=== PATIENT | female | born 1970 | race Caucasian/White ===

== ENCOUNTER 2019-01-30 15:35 | Emergency (ER) | payer BC ==
[~2019-01-30] VITALS: Ht 170.2 cm; Wt 47.0 kg
--- NOTE | 2019-01-30 16:30 | NUR ---
Pt brought straight back to ER Overflow with parents Ede Lara and Patricia [phone] home and cell [phone]. Pt has fibromyalgia that has been untreated for 7 years. One month ago pt stopped eating, drinking, taking medications and became incontinent. Parents attribute this to recent health problems of their own. Pt unable to care for self. Pt states unable to eat because of pain in her throat and her stomach.
--- NOTE | 2019-01-30 16:49 | NUR ---
Pt changed into green scrubs. She was incontinent of urine and stool.
[2019-01-30] MEDS ORDERED: PANT20TA3 PO (16:57)
[2019-01-30] MEDS ORDERED: FLUO20CA39 PO (16:58)
--- NOTE | 2019-01-30 16:58 | NUR ---
Phone call to bread wrapper operator requestin pt be seen by provider and orders be put in. No [phone] at this time
[2019-01-30] MEDS ORDERED: GABA-532 PO (16:59)
[2019-01-30] MEDS ORDERED: OLAN5TAB5 PO (17:01)
[2019-01-30] MEDS ORDERED: ACET-2119 PO (17:02)
[2019-01-30] MEDS ORDERED: MAGN400T28 PO (17:04)
--- NOTE | 2019-01-30 17:12 | NUR ---
PT STATES SHE IS HAVING LEFT SHOULDER PAIN AND IS GOING TO . RN AWARE.
--- NOTE | 2019-01-30 17:23 | NUR ---
Pt given a warm blanket
--- NOTE | 2019-01-30 17:59 | NUR ---
Pt still awaiting assessment by provider. No orders in at this time
--- NOTE | 2019-01-30 18:01 | NUR ---
PT STATES HER DOCTOR JUST TOLD HER HER TEMPERATURE IS 110 DEGREES, REQUESTING TO HAVE HER TEMP TAKEN.
[2019-01-30] MEDS ORDERED: LORazepam 2 mg/ml vial IM ONE (18:35)
[2019-01-30] MEDS ORDERED: diphenhydrAMINE 50 mg/ml inj IM ONE (18:35)
[2019-01-30] MEDS ORDERED: haloperidol lactate 5mg/ml inj IM ONE (18:35)
--- NOTE | 2019-01-30 18:35 | NUR ---
is with patient and her parents. has ordered Ativan 2mg IM, Benadryl 25mg IM.
--- NOTE | 2019-01-30 19:04 | NUR ---
The lab is with patient. She has been medicated and appears to be much more relaxed.
[2019-01-30 19:21] LABS: BASOPHILS % (AUTO) 0.7 % (0-1); EOSINOPHILS # (AUTO) 0.1 X10'3 (0-0.9); EOSINOPHILS % (AUTO) 1.4 % (0-6); HEMATOCRIT 34.1 % (35.0-45.0); LYMPHOCYTES # (AUTO) 0.6 X10'3 (1.1-4.8); LYMPHOCYTES % (AUTO) 13.5 % (21-51); MEAN CORPUSCULAR HEMOGLOBIN 32.4 PG (27.0-31.0); MEAN CORPUSCULAR HGB CONC 35.2 g/dL (33.0-36.5); MEAN CORPUSCULAR VOLUME 91.9 FL (78-98); MEAN PLATELET VOLUME 7.9 FL (7.4-10.4); MONOCYTES # (AUTO) 0.6 X10'3 (0-0.9); MONOCYTES % (AUTO) 13.5 % (2-12); NEUTROPHILS % (AUTO) 70.9 % (42-75); PLATELET COUNT 132 X10'3 (140-440); RED BLOOD COUNT 3.72 X10'6 (4.20-5.60); RED CELL DISTRIBUTION WIDTH 13.4 % (11.5-14.5); WHITE BLOOD COUNT 4.2 X10'3 (4.5-11.0)
[2019-01-30 19:30] LABS: ALANINE AMINOTRANSFERASE 14 U/L (12-78); ALBUMIN 2.7 G/DL (3.4-5.0); ALBUMIN/GLOBULIN RATIO 0.8 (1.1-1.5); ALKALINE PHOSPHATASE 57 IU/L (46-116); ANION GAP 13 (8-16); ASPARTATE AMINO TRANSFERASE 13 U/L (10-37); BILIRUBIN,TOTAL 1.1 MG/DL (0.1-1.0); BLOOD UREA NITROGEN 17 MG/DL (7-18); BUN/CREATININE RATIO 24.6 (6.6-38.0); CALCIUM 8.5 MG/DL (8.5-10.1); CHLORIDE 107 MMOL/L (99-107); CREATININE 0.69 MG/DL (0.40-0.90); ETHANOL < 0.010 GM/DL (0.0-0.010); GLUCOSE 79 MG/DL (70-104); SODIUM 143 MMOL/L (135-145); TOTAL CARBON DIOXIDE 23.4 MMOL/L (24-32); TOTAL PROTEIN 6.2 G/DL (6.4-8.2); eGFR 90 ML/MIN
[2019-01-30] MEDS ORDERED: risperiDONE 0.5mg tablet PO ONE (20:00)
[2019-01-30] MEDS: pregabalin 75mg capsule PO SCH (20:00)
[2019-01-30] MEDS ORDERED: acetaminophen 325mg tablet PO PRN (20:00)
[2019-01-30] MEDS: OLANZapine 5mg rapidly disint. tablet PO SCH (20:00)
[2019-01-30] MEDS: gabapentin 300mg capsule PO SCH (21:00)
--- NOTE | 2019-01-30 21:33 | NUR ---
The patient is asleep in the supine position. Resp. unlabored. No s/s of distress.
[2019-01-31] MEDS ORDERED: potassium Cl 20 mEq SR tablet PO STA (00:55)
--- NOTE | 2019-01-31 01:13 | NUR ---
The patient is sleeping in supine position. Resp unlabored. No s/s of distress.
--- NOTE | 2019-01-31 03:11 | NUR ---
PT SLEEPING, LYING ON HER BACK ON THE BED WITH BLANKETS UP TO WAIST. RR 14 AND UNLABORED. SITTER AND RN WITHIN VIEW OF PT AAT.
--- NOTE | 2019-01-31 04:09 | NUR ---
The patient is asleep on her right side. Resp unlabored. No s/s of distress.
--- NOTE | 2019-01-31 05:40 | NUR ---
No AM vitals as per RN.
--- NOTE | 2019-01-31 06:42 | NUR ---
Patient sleeping supine. No distress observed. Continue to monitor.
[2019-01-31] MEDS: pregabalin 75mg capsule PO SCH ×2 (08:00→19:55)
[2019-01-31] MEDS: OLANZapine 5mg rapidly disint. tablet PO SCH ×2 (08:00→19:55)
[2019-01-31] MEDS ORDERED: potassium bicarbonate/cit acid 25mEq tablet.effervescent PO ONE (08:10)
--- NOTE | 2019-01-31 08:10 | NUR ---
Patient sleeping supine. No distress observed. Continue to monitor.
--- NOTE | 2019-01-31 09:00 | NUR ---
Patient awake and following commands. Patient picking at her food. Continue to monitor.
[2019-01-31] MEDS ORDERED: POTASSIUM BICARB 20meq eff tab 20 MEQ TABLET.EFF PO SCH ×2 (09:05→09:06)
[2019-01-31] MEDS: pantoprazole 40mg Tablet.DR PO SCH (09:39)
[2019-01-31] MEDS: FLUoxetine 20mg capsule PO SCH (09:39)
--- NOTE | 2019-01-31 09:45 | NUR ---
Patient took her meds and hs soiled herself but is sitting and eating. Continue to monitor.
--- NOTE | 2019-01-31 10:22 | NUR ---
Patient ambulatory to BR, steady gait. Patient gave RN a cup of urine in her styrofoam cup. Patient has stool all over her perineum and RN cleaned patient, gave her clean underwear and a gown. RN and tech cleaned patient's bed and placed chucks on her bed. Continue to monitor.
--- NOTE | 2019-01-31 12:10 | NUR ---
Patient sleeping. No distress observed. Continue to monitor.
[2019-01-31] MEDS ORDERED: potassium bicarbonate/cit acid 25mEq tablet.effervescent PO SCH (13:00)
--- NOTE | 2019-01-31 14:05 | NUR ---
RN sat with patient. Patient does not make eye contact and is very, very slow in answering questions. Almost feel like she has some catatonia. Patient c/o Fibromyalgia pain and wouldn't address suicidal ideation or depression. Patient is incontinent of stool and patient would not answer why or when this started. Patient will get up and use the BR. Patient is unable to follow directions for a urine sample. Continue to monitor.
--- NOTE | 2019-01-31 15:50 | NUR ---
Patient reclining in bed sleeping. No distress observed. Continue to monitor.
--- NOTE | 2019-01-31 18:00 | NUR ---
Patient given wipes and hat placed in toilet for patient to urinate. Tech heard the toilet flush. After patient walked out, tech checked the hat and there was no urine in the hat. Continue to monitor.
--- NOTE | 2019-01-31 19:00 | NUR ---
RCD PT AWAKE IN BED,HAD 25% OF HER DINNER.INSTRUCTED TO USE HAT IN THE BATHROOM WHEN SHE URINATE,PT PASSIVELY SAID YES.ASKED IF SHE FEELS LIKE SHE WANTS TO GO RIGHT NOW,PT REPLIED SHE IS OK RIGHT NOW.
--- NOTE | 2019-01-31 19:30 | NUR ---
DR. WALTON ORDERED TO PUT A F/C,EXPLAINED THE PROCEDURE TO PT,PT AGREED WITH THE PLAN.F/C FR 16 INSERTED WITH NO COMPLICATIONS,PT HAWK PROCEDURE.DRAINED 1500 ML DARK LOC COLORED,CLEAR URINE.UA SENT.INFORMED DR. WALTON ABOUT THE HEMORRHOID CREAM WAITING FOR THE ORDER.
[2019-01-31] MEDS: gabapentin 300mg capsule PO SCH (19:55)
--- NOTE | 2019-01-31 20:15 | NUR ---
PT COMFORTABLE IN BED,FEELS BETTER PER PT.
[2019-01-31 20:44] LABS: URINE HCG NEGATIVE (NEG)
[2019-01-31 20:46] LABS: CLARITY,URINE SLIGHTLY CLOUDY (Clear); COLOR,URINE YELLOW (Yellow); GLUCOSE, URINE NEGATIVE (Neg); KETONES,URINE >=80 mg/dl (Neg); LEUKOCYTE ESTERASE ,URINE NEGATIVE (Neg); NITRITES, URINE NEGATIVE (Neg); OCCULT BLOOD,URINE SMALL (Neg); PROTEIN,URINE NEGATIVE (Neg); UROBILINOGEN,URINE 0.2 E.U/dL (0.2-1.0)
[2019-01-31 20:47] LABS: UA COLLECTION TYPE FOLEY CATH
[2019-01-31 20:51] LABS: SQUAMOUS EPITHELIAL CELL,UR MANY /LPF (FEW)
[2019-01-31 20:53] LABS: BACTERIA,URINE FEW /HPF (Neg); URINE AMPHETAMINE SCREEN NEGATIVE (Neg); URINE BARBITUATE SCREEN NEGATIVE (Neg); URINE BENZODIAZEPINES SCREEN NEGATIVE (Neg); URINE CANNABINOID SCREEN NEGATIVE (Neg); URINE COCAINE SCREEN NEGATIVE (Neg); URINE METHADONE SCREEN NEGATIVE (Neg); URINE OPIATE SCREEN NEGATIVE (Neg); URINE PHENCYCLIDINE SCREEN NEGATIVE (Neg)
--- NOTE | 2019-01-31 21:30 | NUR ---
PT CALM AND COMFORTABLE IN BED.
--- NOTE | 2019-01-31 22:45 | NUR ---
PT ASLEEP IN BED,BREATHING EVEN AND UNLABOURED.
--- NOTE | 2019-01-31 23:33 | NUR ---
PT SLEEPING,BREATHING EVEN AND UNLABOURED.
--- NOTE | 2019-02-01 00:41 | NUR ---
PT ASLEEP IN BED,BREATHING EVEN AND UNLABOURED.
--- NOTE | 2019-02-01 03:26 | NUR ---
PT ASLEEP IN SUPINE POSITION.BREATHING EVEN AND UNLABOURED.
--- NOTE | 2019-02-01 05:43 | NUR ---
V/S CHECKED AND WENT BACK TO SLEEP.
--- NOTE | 2019-02-01 06:45 | NUR ---
Patient sleeping supine, no distress observed. Continue to monitor.
[2019-02-01] MEDS ORDERED: hydrocortisone acetate 25mg rectal suppository RC PRN (07:25)
--- NOTE | 2019-02-01 08:15 | NUR ---
RN awoke patient and assisted patient in eating and drinking. Patient has a Louie Catheter. Continue to monitor.
[2019-02-01] MEDS: OLANZapine 5mg rapidly disint. tablet PO SCH ×2 (08:50→20:01)
[2019-02-01] MEDS: pregabalin 75mg capsule PO SCH ×2 (08:50→20:01)
[2019-02-01] MEDS: FLUoxetine 20mg capsule PO SCH (08:50)
[2019-02-01] MEDS: pantoprazole 40mg Tablet.DR PO SCH (08:50)
--- NOTE | 2019-02-01 09:00 | NUR ---
Patient ate most of her cream of wheat and drank some apple juice. Continue to monitor.
--- NOTE | 2019-02-01 11:05 | NUR ---
Patient's parents at bedside. Patient awoke for parents' visit. Continue to monitor.
--- NOTE | 2019-02-01 12:10 | NUR ---
Parents left because ptient fell asleep. No distress observed. Continue to monitor.
[2019-02-01] MEDS: potassium Cl 20 mEq SR tablet PO SCH (13:41)
--- NOTE | 2019-02-01 14:37 | NUR ---
Patient continues to sleep but RN sees patient moving hands and readjusting. Continue to monitor.
--- NOTE | 2019-02-01 15:40 | NUR ---
MARTI Lin and Catherine Edward cleaned patient, changed linen and gave patient a clean green gown.
--- NOTE | 2019-02-01 16:30 | NUR ---
Patient with Deshawn from [facility]. continue to monitor.
--- NOTE | 2019-02-01 17:35 | NUR ---
Patient placed on a 5150 for Grav[facility] Disabled.
--- NOTE | 2019-02-01 20:00 | NUR ---
The patient is resting on her bed. Her affect is flat. She gives very minimal soft monotone responses to questions. She made no attempt to eat her dinner on her own but did eat two bites with prompting before refusing her tray. She reports she has no appetite. She appears internally preoccupied but denies hearing voices. She could not recall how she came to be in the ER. She knew she was in the hospital in [place]. She stated it was January 2019. She admits to feeling depressed and when asked if she was having suicidal thoughts she stated that she has Fibromyalgia. "I've had firbromyalgia for a long time" and stated she did not want to live.
[2019-02-01] MEDS: gabapentin 300mg capsule PO SCH (20:01)
--- NOTE | 2019-02-01 21:56 | NUR ---
The patient appears to be sleeping
--- NOTE | 2019-02-01 22:41 | NUR ---
The patient appears to be sleeping
--- NOTE | 2019-02-02 00:11 | NUR ---
The patient appears to be sleeping
--- NOTE | 2019-02-02 00:55 | NUR ---
assumed care of pt. pt sleeping on back. resp even/unlabored
--- NOTE | 2019-02-02 02:25 | NUR ---
pt continues sleeping. even/unlabored respirations
--- NOTE | 2019-02-02 04:17 | NUR ---
pt sleeping. resp even/unlabored
--- NOTE | 2019-02-02 05:55 | NUR ---
pt had a small smear on dri ravinder. leonor care done and clean dri ravinder on bed. pt VS obtained. pt answers questions very quietly, barely responds
--- NOTE | 2019-02-02 07:22 | NUR ---
PT IS RESTING IN BED PEACEFULLY AT THIS TIME ON HER RIGHT SIDE. NO DISTRESS OBSERVED. WILL CONTINUE TO MONITOR.
[2019-02-02] MEDS: potassium Cl 20 mEq SR tablet PO SCH ×3 (07:52→19:09)
[2019-02-02] MEDS: FLUoxetine 20mg capsule PO SCH (07:53)
[2019-02-02] MEDS: pantoprazole 40mg Tablet.DR PO SCH (07:53)
[2019-02-02] MEDS: OLANZapine 5mg rapidly disint. tablet PO SCH ×2 (07:53→20:45)
[2019-02-02] MEDS: pregabalin 75mg capsule PO SCH ×2 (07:53→20:13)
--- NOTE | 2019-02-02 08:32 | NUR ---
PT TOOK HER MEDICATIONS ONE AT A TIME WITH AIDE OF THIS [employer]ER[employer] GLAZIER. SHE REPORTS THAT SHE JUST WANTS TO GO TO [facility] AND IS IN PAIN. SHE ATE ONLY BITES OF HER MEAL AND HAD SIPS OF WATER WITH HER PILLS. FC IN PLACE WITH PERERA COLORED URINE. FLOWING WELL. NO D/C OR CONCERNS NOTED IN LUIS ALFREDO AREA. PT IS CURRENTLY CLEAN AND DRY.
--- NOTE | 2019-02-02 09:35 | NUR ---
Pt is resting in bed peacefully at this time. No distress observed. Will continue to monitor.
--- NOTE | 2019-02-02 10:28 | NUR ---
Pt is resting in bed peacefully in the supine position at this time. Her F/C is still draining fournier colored urine, no leaking noted. Pt remains clean and dry. No distress observed. Will continue to monitor.
--- NOTE | 2019-02-02 11:12 | NUR ---
Pt is resting in bed peacefully. No distress observed.
--- NOTE | 2019-02-02 12:47 | NUR ---
Pt is laying in bed wth head of bed elevated. arnaud Wood, is at bedside aiding patient with eating her lunch. Pt talks low and slurred in short sentences, but is able to make her needs know.
--- NOTE | 2019-02-02 13:41 | NUR ---
pt resting in bed with eyes closed
--- NOTE | 2019-02-02 14:40 | NUR ---
Pt is resting in bed peacefully at this time. No distress observed.
[2019-02-02] MEDS ORDERED: normal saline 1000ML IV soln IVB ONE (18:25)
[2019-02-02] MEDS ORDERED: potassium Cl 10 mEq/100mL bag IV ONE (18:45)
[2019-02-02] MEDS ORDERED: potassium Cl 20 mEq SR tablet PO ONE (18:45)
--- NOTE | 2019-02-02 18:59 | NUR ---
PT WAS MOVED FROM ER OVERFLOW TO ROOM #1 SECONDARY TO TACHYCARDIA AND LOW URINE OUTPUT. BRIEF PHONE CONSULT WITH MARCY BEFORE TRANSFERRING HIM TO MD VOGEL I WAS NOT FAMILIAR WITH THE PATIENT.
--- NOTE | 2019-02-02 19:15 | NUR ---
PT MOVED FROM BED 1 TO 8 PT COULD NOT BE LINE OF SIGHT
--- NOTE | 2019-02-02 19:23 | NUR ---
Called Parents Per Dr Marin to have them come to the ED to talk about treatment options for the Patient and possibility of sending her home with them. Father agrees to come to the ED to have meeting with MD and will arrive in 45 min to 1 hour. Pt HR improving and Dr Marin to order 1 more liter of lactated ringers. Pt has increasing urine output. Spoke with patient about possibility of going to a voluntary 30day inpatient facility for her anorexia. Pt unable to make decision and states "I dont know". Parents are supportive of her going to a facility for help.
[2019-02-02] MEDS ORDERED: ringers solution, lactated 1000ml IV soln IV ONE (19:25)
--- NOTE | 2019-02-02 19:29 | NUR ---
PT MOVES FROM BED 1, TO BED 8
[2019-02-02] MEDS: gabapentin 300mg capsule PO SCH (20:14)
--- NOTE | 2019-02-02 21:23 | NUR ---
GENERA; NURSING ORDER TIMED FOR 02/03/19 0800. CASE MANAGEMENT TO BE CONTACTED. DR VOGEL REQUESTING FOR PT TO BE ADMITTED TO [facility] FOR INPATIENT CARE FOR ANOREXIA/DEPRESSION.
[2019-02-02 22:01] LABS: ALBUMIN 2.2 G/DL (3.4-5.0); ANION GAP 12 (8-16); BLOOD UREA NITROGEN 14 MG/DL (7-18); BUN/CREATININE RATIO 30.4 (6.6-38.0); CALCIUM 7.4 MG/DL (8.5-10.1); CHLORIDE 108 MMOL/L (99-107); CREATININE 0.46 MG/DL (0.40-0.90); GLUCOSE 55 MG/DL (70-104); POTASSIUM 4.6 MMOL/L (3.5-5.1); SODIUM 141 MMOL/L (135-145); TOTAL CARBON DIOXIDE 21.1 MMOL/L (24-32); eGFR > 90 ML/MIN
--- NOTE | 2019-02-02 22:35 | NUR ---
PT CUEVAS CATHETER DISCONTINUED PER MD ORDERS ,EMPTIED 200 ML OF URINE .PT K+ 4.6,IV D/C ,PT BROUGHT TO OVERFLOW [facility] BED ,REPORT WAS GIVEN TO NURSE BAILEY BY MARTI WOODS BEFORE ,NOW UPDATED WITH CURRENT SITUATION .
--- NOTE | 2019-02-02 23:13 | NUR ---
covering RN for break. visual check of pt done, pt laying calmly with eyes closed on back, respirations observed WNL.
--- NOTE | 2019-02-03 07:28 | NUR ---
Received Pt in bed awake. Pleasant and responded softly and coherently to Q's. Pt not in distress and returned to sleep.
[2019-02-03] MEDS: pantoprazole 40mg Tablet.DR PO SCH (08:47)
[2019-02-03] MEDS: OLANZapine 5mg rapidly disint. tablet PO SCH ×2 (08:48→20:25)
[2019-02-03] MEDS: FLUoxetine 20mg capsule PO SCH (08:48)
[2019-02-03] MEDS: pregabalin 75mg capsule PO SCH ×2 (08:48→20:25)
--- NOTE | 2019-02-03 09:45 | NUR ---
CASE MANAGEMENT AND NEEDLE PUNCH MACHINE OPERATOR AT BEDSIDE. 02/01/19 PT WAS PLACED ON A 5150 BY [facility], THEY ARE TRYING TO PLACE [facility] [place] OR [place]. [facility] IS GOING TO RELEASE THE 5150. NEEDLE PUNCH MACHINE OPERATOR/ CASE MANAGEMENT TO TALK WITH PT'S FAMILY TO HELP WITH RESOURCES.
--- NOTE | 2019-02-03 10:30 | NUR ---
Pt visiting with parents. Walked to bathroom by self w/o assistance. Ate approximately 5-10% of breakfast. Encouraged to eat and drink. Given single use underwear and Tech assisted in putting them on her. Took AM meds slowly, yet took them all. Pt remains in bed, speaks very softly and difficult to hear.
--- NOTE | 2019-02-03 14:00 | NUR ---
tsPt visited with brother and his . Ambulated to bathroom again. Bro and sister in law reported she had learning disabilities growing up but was never diagnosed and was protected by parents. They confirmed that she started to not eat, around the time father had heart attack. Also recently moved back in with parents. She was living in her own apt for about 5 years after divorce from of 20 yrs. Daughter and BF moved in with her and relations were tense and BF killed her dog. Pt appears depressed and anxious with limited coping skills.
--- NOTE | 2019-02-03 17:29 | NUR ---
Pt resting in bed. Encouraging fluids and food. Discussed Pt with Alice BARRY from [facility], who will be coming down to do a consult for possible admission to [facility] later this evening.
--- NOTE | 2019-02-03 18:30 | NUR ---
Pt is sitting up in bed talking with visitors, her brother and sister. Pt has dinner tray in front of her, staff and family are encouraging her to eat. Vitals WNL.
--- NOTE | 2019-02-03 20:00 | NUR ---
Pt is talking with PA from [facility] with brother and sister at bedside.
[2019-02-03] MEDS: gabapentin 300mg capsule PO SCH (20:25)
[2019-02-03] MEDS ORDERED: mirtazapine 15mg tablet PO SCH (21:00)
--- NOTE | 2019-02-03 21:00 | NUR ---
Pt has been accepted to [facility].
[2019-02-03 22:19] VITALS: BP 131/81
== END 2019-02-03 21:20 ==
LOC: ER 15:37
DX: F41.9 Anxiety disorder, unspecified (principal); F29 Unspecified psychosis not due to a substance or known physiological condition; E87.6 Hypokalemia; M79.7 Fibromyalgia; Z90.49 Acquired absence of other specified parts of digestive tract; Z88.6 Allergy status to analgesic agent; Z79.899 Other long term (current) drug therapy
CPT/HCPCS: 36415; 80048; 80053; 80305; 80320; 81001; 81025; 84132; 84443; 85025; 87088; 96365; 96366; 96372; 99285; J1200; J1630; J2060; J7030

== ENCOUNTER 2019-02-03 20:35 | Inpatient (IN) | payer BC ==
[~2019-02-03] VITALS: Ht 167.6 cm; Wt 43.0 kg
[~2019-02-03 20:35] MED LIST: ACET-2119 PO; FLUO20CA39 PO; GABA-532 PO; OLAN5TAB5 PO; PANT20TA3 PO
--- NOTE | 2019-02-03 21:45 | NUR ---
ADMIT NOTE: Pt brought up by Nina Catherine. Ht, Wt, [facility] & Terrence. Skin assessment completed with MARTI Lang followed by pt showering and changing into clean scrubs and nonskid socks. Pt's belongings inventoried, no contraband noted, admit paperwork signed by [facility] Nian. Admit assessment completed at bedside; pt provided with warm blanket and water. Why They are here: Pt lives with her parents. Pt has lost 30lbs with the last 2 months per her family. This is believed to be triggered by her parents recent physical health decline (Mother had a Stent placed and father had a double bypass surgery) and loss of a pet dog, per pt's sister and brother. Pt states she has thoughts of "not wanting to be here" stating "the pain is too much" and per the PA notes, stopped eating in hopes she would . Hx: Possibly delayed/mild learning disabilities, Dyslexia. Social Hx: Pt was for 18 years and has a daughter.Pt will state "I don't know" when uncomfortable and when talking with strangers, per pt brother. Medical Hx: Fibromyalgia, Glasses, Hemorrhoids, L/R Large Toe Ingrown/redness (see photos in chart), General weakness, Unsteady Gait (Pt denies use of assistive devices) Surgical Hx: Cholecystectomy Mental Status Eye contact: Poor to none Behavior: Guarded Speech: Mumbled, Soft Mood: Depressed 10/10, +SI Affect: Flat Cognition: Presents as Mildly impaired, A&Ox2 (unable to give location or events) Insight: Poor Judgment: Poor Pt denies AH/VH/HI. Pt had HS medications in ED Overflow prior to being admitted to H unit.
[2019-02-03 22:30] VITALS: BP 124/88
[2019-02-03] MEDS ORDERED: hydrOXYzine 25 MG tablet PO PRN (22:55)
[2019-02-03] MEDS ORDERED: LORazepam 1 MG tablet PO PRN (22:55)
[2019-02-03] MEDS ORDERED: acetaminophen 325mg tablet PO PRN ×2 (22:55)
[2019-02-03] MEDS: gabapentin 300mg capsule PO SCH (22:58)
[2019-02-03] MEDS: OLANZapine 5mg rapidly disint. tablet PO SCH (22:59)
[2019-02-03] MEDS ORDERED: mag hydrox/Alum hydrox/simeth 30ml oral suspension PO PRN (23:00)
[2019-02-03] MEDS ORDERED: loperamide 2mg capsule PO PRN (23:00)
[2019-02-03] MEDS ORDERED: magnesium hydroxide 30ml (MOM) UD suspension PO PRN (23:00)
[2019-02-04] MEDS ORDERED: acetaminophen 325mg tablet PO SCH
[2019-02-04] MEDS: OLANZapine 5mg rapidly disint. tablet PO SCH ×2 (07:46→20:56)
[2019-02-04] MEDS: FLUoxetine 20mg capsule PO SCH (07:46)
[2019-02-04] MEDS: pantoprazole 40mg Tablet.DR PO SCH (07:46)
[2019-02-04 08:00] VITALS: BP 116/82
[2019-02-04 08:16] LABS: CHOL/HDL RATIO 4.1 (0.00-4.99); CHOLESTEROL 123 MG/DL (0-200); HDL CHOLESTEROL 30 MG/DL (35-60); LDL CHOLESTEROL 85 MG/DL (50-100); TRIGLYCERIDES 88 MG/DL (20-135)
--- NOTE | 2019-02-04 08:49 | NUR ---
Met with Ct to complete Psychosocial Assessment. She was lying down in bed and eventually sat up. She spoke very quietly and stated it was difficult to speak. She answered some questions and then stated she wanted to rest. She was oriented to person and place. She did have difficulty recalling the year, "1999, 2008?". Pass Worker will attempt to gather more information later in the day. IFEANYI Ortega
--- NOTE | 2019-02-04 11:03 | NUR ---
FOOD PREFERENCES ASHA Jenkins, signed a med order to allow Ct outside food. Ct reported she likes the following: jello (not green) applesauce soup-vegetable, minestrone apples w/peanut butter protein shakes-vanilla vanilla ice cream grilled cheese peanutbutter IFEANYI Hodge
[2019-02-04] MEDS ORDERED: protein shake 8oz. (237ml) PO SCH (13:00)
--- NOTE | 2019-02-04 14:29 | NUR ---
FAMILY PHONE NUMBERS [phone] [id number] [phone] Left message with Milla requesting a call back to gather additional information. IFEANYI Ortega Addendum: 02/08/19 at 0915 by Bertha Veliz SS Parents # [phone] Lara
--- NOTE | 2019-02-04 15:37 | NUR ---
Malnutrition consult. Patient is underweight, low BMI of 17, weighing 103 lbs on standing scale. No prior weights for weight history. Patient reports both unsure if she has lost weight and reporting 24-33 lbs weight loss, reports eating poorly due poor appetite. Per ER physician note patient began lacking communication after her father had an ID, she "denied consuming food or liquids" and had c/o painful swallow; patient in catatonic state with flat affect; lost 38 lbs since october 24 all per MD note. In another progress note it is reported that she lost 30 lbs in two months (this would be a 21% loss with a UBW of 133 lbs). A 38 lb loss since 10/24/18 would have a UBW 141 lbs, leaving the patient at 73% of her UBW with loss of 27% of her weight in three months. Both amounts of weight loss meet criteria for severe malnutrition in the context of very poor PO intake and poor appetite/anorexia. The patient reports she is eating at home, likes applesauce, soup, and is "picky," the progress note further reports the patient stated "yes" when asked if she stopped eating in hopes that she would , SI plan was to starve to . Recommend sending ensure enlive with all meals, d/w bedside RN and dietary. Will continue to follow and monitor PO intake and ONS acceptance. Recommend: 1. continue regular diet 2. Ensure Enlive with all meals 3. Encourage PO Intake 4. bowel care as needed 5. weekly weights Addendum: 02/04/19 at [address] Amended: Links added.
--- NOTE | 2019-02-04 17:30 | NUR ---
Nursing Progress Note: Legal hold: 5150 Client on involuntary status for DTS Report received from nurse with use of SBAR: Shirin Young RN Why they are here: Pt lives with her parents. Pt has lost 30lbs with the last 2 months per her family. This is believed to be triggered by her parents recent physical health decline (Mother had a Stent placed and father had a double bypass surgery) and loss of a pet dog, per pt's sister and brother. Pt states she has thoughts of "not wanting to be here" stating "the pain is too much" and per the PA notes, stopped eating in hopes she would . Pt. reportedly has slight developmental delay. What has happened this shift: Pt. asleep at start of shift. Pt. took medications but refused all meals. Pt. refused all meals. 1:1 done at bedside. Pt. reports depression but denies SI/HI, A/V H. Pt. reports she wants to go home. RN received order that pt. can have food brought in from home because pt. is reportedly a picky eater. Pt. observed eating 2 peanut butter crackers by this RN. When RN encouraged pt. to eat more, pt. responded, Im just not hungry. At dinner time pt. refused her tray however, pt. drank of her ensure after much encouragement. S/I, H/I: Denies A/VH: Denies Sleep: Pt. napped on and off during the shift. ADL's: Independent. Group attendance: Yes Were meds taken: Yes Any med S/E: None reported nor noted Mental Status Exam Appearance: wearing green scrubs, clean but oily hair (Pt. reportedly showered last night) Eye contact: Good Behavior: Isolative Speech: Soft Mood: Depressed Affect: congruent with affect. Thought process: Thought blocking Thought Content: Wants to go home. Cognition: A&Ox3 (not to circumstance) Insight: Poor Judgment: Poor Interventions PRN's used: N/A Therapeutic interventions: One on one assessments, give pt. greater meal choices, weigh pt. daily, medication administration, every 15 minute safety checks. Encourage group participation and interaction, encourage going outside and daily shower/ personal care for self. Restraints/seclusion/emergency medication: None Justification of Continued Inpatient Treatment: Pt continues to be refusing food, pt. needs to put on weight, needs crisis interruption, stabilization, and medication adjustment in a safe and therapeutic environment.
[2019-02-04] MEDS: lactose-reduced food (Ensure Enlive) - 237ml bottle PO SCH (18:15)
[2019-02-04 20:00] VITALS: BP 124/84
[2019-02-04] MEDS: gabapentin 300mg capsule PO SCH (20:56)
[2019-02-04] MEDS: mirtazapine 15mg tablet PO SCH (20:56)
[2019-02-04] MEDS: docusate sod 100mg capsule PO SCH (20:56)
--- NOTE | 2019-02-05 02:39 | NUR ---
Nursing Progress Note: Legal hold: 5150 Client on involuntary status for DTS Report received from nurse with use of SBAR: MARTI Salgado Why they are here: Pt lives with her parents. Pt has lost 30lbs with the last 2 months per her family. This is believed to be triggered by her parents recent physical health decline (Mother had a Stent placed and father had a double bypass surgery) and loss of a pet dog, per pt's sister and brother. Pt states she has thoughts of "not wanting to be here" stating "the pain is too much" and per the PA notes, stopped eating in hopes she would . Pt. reportedly has slight developmental delay. What has happened this shift: Pt sitting in chair in room at change of shift. Pt has a cane to walk around. Pt remains mostly non-verbal, taking multiple attempts to elicit an answer. Pt did endorse anxiety (pt declined Ativan) and SI (pt nodded when asked whether she isn't eating so she will no longer live). Pt appears downcast. Pt stopped talking after stating, "I'm tired. Too many questions." She did not drink any of her evening ensure and would not eat any additional snack with encouragement. Pt was compliant with medications, but had to be coached not to chew or bite them in half. Although pt showered on admit, her hair remains very oily. Needs a stronger shampoo than hospital-chosen brand to achieve a deep clean. Pt went to bed immediately after HS med administration. S/I, H/I: Denies HI, Vague SI (Nods when asked whether she isn't eating so she will no longer live) A/VH: Denies Sleep: See Sleep Assessment ADL's: Independent. Group attendance: N/A Were meds taken: Yes Any med S/E: None reported nor noted Mental Status Exam Appearance: wearing green scrubs, clean but oily hair (Pt. reportedly showered last night) Eye contact: Minimal to none Behavior: Isolative Speech: Soft, Mumbled Mood: Depressed, Anxious Affect: Flat Thought process: Thought blocking Thought Content: Wants to go home Cognition: A&Ox3 (not to circumstance) Insight: Poor Judgment: Poor Interventions PRN's used: N/A Therapeutic interventions: One on one assessments, give pt. greater meal choices, weigh pt. daily, medication administration, every 15 minute safety checks. Encourage group participation and interaction, encourage going outside and daily shower/ personal care for self. Restraints/seclusion/emergency medication: None Justification of Continued Inpatient Treatment: Pt continues to be refusing food, pt. needs to put on weight, needs crisis interruption, stabilization, and medication adjustment in a safe and therapeutic environment.
[2019-02-05 07:30] VITALS: BP 118/78
[2019-02-05] MEDS: pantoprazole 40mg Tablet.DR PO SCH (08:37)
[2019-02-05] MEDS: megestrol acetate 400mg/10ml UD oral suspension PO SCH (08:37)
[2019-02-05] MEDS: lactose-reduced food (Ensure Enlive) - 237ml bottle PO SCH ×4 (08:37→18:00)
[2019-02-05] MEDS: FLUoxetine 20mg capsule PO SCH (08:37)
[2019-02-05] MEDS: OLANZapine 5mg rapidly disint. tablet PO SCH ×2 (08:37→22:04)
[2019-02-05] MEDS ORDERED: metoprolol tartrate 12.5mg (1/2 tablet) PO ONE ×2 (09:15)
--- NOTE | 2019-02-05 09:34 | NUR ---
Elevated HR: Pt HR 140bpm at VS time. EKG shows ST at 128bpm. Paged Hospitalists. Dr Batista calls back and gives orders for MEtoprolol 12.5mg once and encourage po fluids.
--- NOTE | 2019-02-05 17:45 | NUR ---
Nursing Progress Note: Legal hold: 5150 Client on involuntary status for DTS Report received from nurse with use of SBAR: Shirin Young RN Why they are here: Pt lives with her parents. Pt has lost 30lbs with the last 2 months per her family. This is believed to be triggered by her parents recent physical health decline (Mother had a Stent placed and father had a double bypass surgery) and loss of a pet dog, per pt's sister and brother. Pt states she has thoughts of "not wanting to be here" stating "the pain is too much" and per the PA notes, stopped eating in hopes she would . Pt. reportedly has slight developmental delay. What has happened this shift: Pt. is asleep at start of shift. Pt.s heart rate was 144 and EKG done and showed Sinus Tachycardia. Hospitalist called and ordered Metoprolol 12.5 mg, after and patients heartrate came down to 110. Pt. took all medications. 1:1 done at bedside. When asked if suicidal pt. states, I dont know what to say to that. Pt. offered minimal answers during interview. Pt. placed on strict Is and Os however, pt. will not use the hat to urinate into, pt. states that she forgets to use it. Pt. reports urinating twice in the AM. Pt. needs persistent encouragement to eat and drink the slightest bit of food. Pt. showered but did not wash her hair. Pt.s intake today: Inusre (4oz) cream of wheat (3oz) 3 bites of palomo 2 bites of eggs 3 bites of macaroni and beef. 250 ml juice 100 ml water Pt.s output: (Pt. forgot to use hat until the evening time) 25 ml S/I, H/I: Pt. states, I dont know what to say to that A/VH: Denies Sleep: Pt. napped x2 on day shift. ADL's: Independent. Group attendance: N/A Were meds taken: Yes Any med S/E: None reported nor noted Mental Status Exam Appearance: wearing green scrubs, Pt. showered today but did not wash her hair. Eye contact: Minimal to none Behavior: Isolative Speech: Soft, Mumbled Mood: Depressed, Anxious Affect: congruent with mood Thought process: Thought blocking Thought Content: Wants to go home Cognition: A&Ox3 (not to circumstance) Insight: Poor Judgment: Poor Interventions PRN's used: N/A Therapeutic interventions: One on one assessments, give pt. greater meal choices, weigh pt. daily, medication administration, every 15 minute safety checks. Encourage group participation and interaction, encourage going outside and daily shower/ personal care for self. Restraints/seclusion/emergency medication: None Justification of Continued Inpatient Treatment: Pt continues to be refusing food, pt. needs to put on weight, needs crisis interruption, stabilization, and medication adjustment in a safe and therapeutic environment.
[2019-02-05 20:00] VITALS: BP 107/75
[2019-02-05] MEDS: gabapentin 300mg capsule PO SCH (22:04)
[2019-02-05] MEDS: docusate sod 100mg capsule PO SCH (22:04)
[2019-02-05] MEDS: mirtazapine 15mg tablet PO SCH (22:04)
--- NOTE | 2019-02-06 01:57 | NUR ---
Nursing Progress Note: Legal hold: 5150 Client on involuntary status for DTS Report received from nurse with use of SBAR: Shirin Young RN Why they are here: Pt lives with her parents. Pt has lost 30lbs with the last 2 months per her family. This is believed to be triggered by her parents recent physical health decline (Mother had a Stent placed and father had a double bypass surgery) and loss of a pet dog, per pt's sister and brother. Pt states she has thoughts of "not wanting to be here" stating "the pain is too much" and per the PA notes, stopped eating in hopes she would . Pt. reportedly has slight developmental delay. What has happened this shift: Pt. in room at start of shift. Pt tachy on day shift Heart rate this shift was 88. Pt came out of room to visit with Mom and Dad in group room. Went back to room immediately after visiting hour. Pt declined to stay in group room for snack. Pt had a juice and a banana in room. Pt resistant to multiple attempts to get pt to drink or eat. Pt resisted drank only a 1/2 of a juice box. Took all medications. Pt. offered minimal answers to questions. Volume of voice very low difficult to hear. Pt. placed on strict Is and Os however, pt. will not use the hat to urinate into, pt. states that she forgets to use it. Pt. reports urinating twice in the AM. Pt. needs persistent encouragement to eat and drink the slightest bit of food. Pt. showered but did not wash her hair. Pt.s intake today: Inusre (4oz) cream of wheat (3oz) 3 bites of palomo 2 bites of eggs 3 bites of macaroni and beef. 250 ml juice 100 ml water Pt.s output: (Pt. forgot to use hat until the evening time) 25 ml S/I, H/I: Pt. states, I dont know what to say to that A/VH: Denies Sleep: Asleep at this time. ADL's: Independent. Group attendance: N/A Were meds taken: Yes Any med S/E: None reported nor noted Mental Status Exam Appearance: wearing green scrubs, Pt. showered today but did not wash her hair. Eye contact: Minimal to none Behavior: Isolative Speech: Soft, Mumbled Mood: Depressed, Anxious Affect: congruent with mood Thought process: Thought blocking Thought Content: Wants to go home Cognition: A&Ox3 (not to circumstance) Insight: Poor Judgment: Poor Interventions PRN's used: N/A Therapeutic interventions: One on one assessments, give pt. greater meal choices, weigh pt. daily, medication administration, every 15 minute safety checks. Encourage group participation and interaction, encourage going outside and daily shower/ personal care for self. Restraints/seclusion/emergency medication: None Justification of Continued Inpatient Treatment: Pt continues to be refusing food, pt. needs to put on weight, needs crisis interruption, stabilization, and medication adjustment in a safe and therapeutic environment.
[2019-02-06] MEDS: megestrol acetate 400mg/10ml UD oral suspension PO SCH (07:58)
[2019-02-06] MEDS: OLANZapine 5mg rapidly disint. tablet PO SCH ×2 (07:58→21:04)
[2019-02-06] MEDS: pantoprazole 40mg Tablet.DR PO SCH (07:58)
[2019-02-06 08:00] VITALS: BP 107/67
[2019-02-06] MEDS: FLUoxetine 20mg capsule PO SCH (08:01)
[2019-02-06] MEDS: lactose-reduced food (Ensure Enlive) - 237ml bottle PO SCH ×3 (08:56→18:42)
--- NOTE | 2019-02-06 08:56 | NUR ---
Patient only drank approximately 0.25ml of Ensure. Addendum: 02/06/19 at 0858 by Stacy Javed RN Patient only drank approximately 0.25 bottle of Ensure.
[2019-02-06 09:37] LABS: ALANINE AMINOTRANSFERASE 16 U/L (12-78); ALBUMIN/GLOBULIN RATIO 0.9 (1.1-1.5); ALKALINE PHOSPHATASE 62 IU/L (46-116); ANION GAP 11 (8-16); ASPARTATE AMINO TRANSFERASE 17 U/L (10-37); BILIRUBIN,TOTAL 0.9 MG/DL (0.1-1.0); BLOOD UREA NITROGEN 20 MG/DL (7-18); BUN/CREATININE RATIO 36.4 (6.6-38.0); CALCIUM 8.7 MG/DL (8.5-10.1); CHLORIDE 106 MMOL/L (99-107); CREATININE 0.55 MG/DL (0.40-0.90); GLUCOSE 98 MG/DL (70-104); SODIUM 144 MMOL/L (135-145); TOTAL CARBON DIOXIDE 26.6 MMOL/L (24-32); TOTAL PROTEIN 6.5 G/DL (6.4-8.2); eGFR > 90 ML/MIN
[2019-02-06 09:39] LABS: POTASSIUM 2.8 MMOL/L (3.5-5.1)
[2019-02-06] MEDS ORDERED: potassium Cl 20 mEq SR tablet PO PRN (09:40)
--- NOTE | 2019-02-06 09:47 | NUR ---
Critical lab: Lab called. Pts K+ is 2.8. ASHA Jenkins is aware. Pt placed on electrolyte replacement protocol.
[2019-02-06 10:12] LABS: BASOPHILS # (AUTO) 0.1 X10'3 (0-0.2); BASOPHILS % (AUTO) 1.3 % (0-1); EOSINOPHILS # (AUTO) 0.1 X10'3 (0-0.9); EOSINOPHILS % (AUTO) 1.2 % (0-6); HEMATOCRIT 34.7 % (35.0-45.0); HEMOGLOBIN 12.4 g/dl (12.0-16.0); LYMPHOCYTES # (AUTO) 1.1 X10'3 (1.1-4.8); LYMPHOCYTES % (AUTO) 21.6 % (21-51); MEAN CORPUSCULAR HEMOGLOBIN 32.1 PG (27.0-31.0); MEAN CORPUSCULAR HGB CONC 35.7 g/dL (33.0-36.5); MEAN CORPUSCULAR VOLUME 89.8 FL (78-98); MEAN PLATELET VOLUME 7.2 FL (7.4-10.4); MONOCYTES # (AUTO) 0.4 X10'3 (0-0.9); MONOCYTES % (AUTO) 6.6 % (2-12); NEUTROPHILS # (AUTO) 3.7 X10'3 (1.8-7.7); NEUTROPHILS % (AUTO) 69.3 % (42-75); PLATELET COUNT 286 X10'3 (140-440); RED BLOOD COUNT 3.86 X10'6 (4.20-5.60); RED CELL DISTRIBUTION WIDTH 13.3 % (11.5-14.5); WHITE BLOOD COUNT 5.3 X10'3 (4.5-11.0)
[2019-02-06 10:15] LABS: ACANTHOCYTES FEW; PLATELET ESTIMATE NORMAL; POLYCHROMASIA FEW; SPHEROCYTES 1+
[2019-02-06] MEDS: potassium Cl 20 mEq SR tablet PO PRN ×2 (11:25→15:27)
[2019-02-06] MEDS ORDERED: dextrose 5%-normal saline 1,000 ML IV ONE ×2 (15:05→15:10)
--- NOTE | 2019-02-06 16:45 | NUR ---
Nursing Progress Note: Blanca Legal hold: 5150 Client on involuntary status for DTS Report received from nurse with use of SBAR: Shirin Yuong RN Why they are here: Pt lives with her parents. Pt has lost 30lbs with the last 2 months per her family. This is believed to be triggered by her parents recent physical health decline (Mother had a Stent placed and father had a double bypass surgery) and loss of a pet dog, per pt's sister and brother. Pt states she has thoughts of "not wanting to be here" stating "the pain is too much" and per the PA notes, stopped eating in hopes she would . Pt. reportedly has slight developmental delay. What has happened this shift: Pt is resting in bed at change of shift. She speaks lowly and her speech is mumbled. She is unkempt and at first declines to take her medications. With some prompting, she takes her medications one pill at a time. She is up for meals in the community room with minimal intake. She had labs drawn this morning showing a Potassium of 2.8. Started K+ protocol and Pt has received two replacements of potassium 40 meq. She has a PIV in RFA patent and flushing. She received 100ml of D5 in NS. Pt.s intake today: 0.25 Insure (2oz) 2 bites of waffle 1 bites of eggs 250 ml juice 150 ml water Pt.s output: (Pt. forgot to use hat until the evening time) 25 ml S/I, H/I: Denies but states "I don't know what to do with myself" A/VH: Denies Sleep: naps majority of day in between meals ADL's: Independent. Group attendance: N/A Were meds taken: Yes Any med S/E: None reported nor noted Mental Status Exam Appearance: wearing green scrubs, Pt. showered today but did not wash her hair. Eye contact: Minimal to none Behavior: Isolative Speech: Soft, Mumbled Mood: Depressed, Anxious Affect: congruent with mood Thought process: Thought blocking Thought Content: Wants to go home Cognition: A&Ox3 (not to circumstance) Insight: Poor Judgment: Poor Interventions PRN's used: N/A Therapeutic interventions: One on one assessments, give pt. greater meal choices, weigh pt. daily, medication administration, every 15 minute safety checks. Encourage group participation and interaction, encourage going outside and daily shower/ personal care for self. Restraints/seclusion/emergency medication: None Justification of Continued Inpatient Treatment: Pt continues to be refusing food, pt. needs to put on weight, needs crisis interruption, stabilization, and medication adjustment in a safe and therapeutic environment.
[2019-02-06 19:57] VITALS: BP 120/77
[2019-02-06] MEDS: gabapentin 300mg capsule PO SCH (21:03)
[2019-02-06] MEDS: mirtazapine 15mg tablet PO SCH (21:03)
[2019-02-06] MEDS: docusate sod 100mg capsule PO SCH (21:04)
--- NOTE | 2019-02-07 00:33 | NUR ---
Nursing Progress Note: Legal hold: 5150 Client on involuntary status for DTS Report received from nurse with use of SBAR: MARTI Salgado Why they are here: Pt lives with her parents. Pt has lost 30lbs with the last 2 months per her family. This is believed to be triggered by her parents recent physical health decline (Mother had a Stent placed and father had a double bypass surgery) and loss of a pet dog, per pt's sister and brother. Pt states she has thoughts of "not wanting to be here" stating "the pain is too much" and per the PA notes, stopped eating in hopes she would . Pt. reportedly has slight developmental delay. What has happened this shift: Pt sitting on side of bed at start of shift. Minimal answers to question. She speaks quietly and her speech is mumbled. She is unkempt but declines to take a shower. She brightened when family came for a visit ambulated to group room using walker. Third dose of K+ given lab recheck of K+ = 4.0. Took medications. Staff encouraged pt's PO intake. so far this shift intake 850cc. Only 25cc output but there is some question as to wether pt is using hat to record output. S/I, H/I: Denies A/VH: Denies Sleep: not sleeping sitting on side of bed but reported pt slept a lot during dayshift. ADL's: Independent. Group attendance: N/A Were meds taken: Yes Any med S/E: None reported nor noted Mental Status Exam Appearance: wearing green scrubs, Pt. showered today but did not wash her hair. Eye contact: Minimal to none Behavior: Isolative Speech: Soft, Mumbled Mood: Depressed, Anxious Affect: congruent with mood Thought process: Thought blocking Thought Content: Wants to go home Cognition: A&Ox3 (not to circumstance) Insight: Poor Judgment: Poor Interventions PRN's used: N/A Therapeutic interventions: One on one assessments, give pt. greater meal choices, encourage PO intake, Pt has IV access for hydration, weigh pt. daily, medication administration, every 15 minute safety checks. Encourage group participation and interaction, encourage going outside and daily shower/ personal care for self. Restraints/seclusion/emergency medication: None Justification of Continued Inpatient Treatment: Pt continues to be refusing food, pt. needs to put on weight, needs crisis interruption, stabilization, and medication adjustment in a safe and therapeutic environment.
--- NOTE | 2019-02-07 02:00 | NUR ---
pt straight cathed for 2400 cc PA informed ua sent.
[2019-02-07 02:58] LABS: CLARITY,URINE CLOUDY (Clear); COLOR,URINE YELLOW (Yellow); GLUCOSE, URINE 100 mg/dl (Neg); KETONES,URINE TRACE mg/dl (Neg); LEUKOCYTE ESTERASE ,URINE NEGATIVE (Neg); NITRITES, URINE NEGATIVE (Neg); OCCULT BLOOD,URINE SMALL (Neg); PH,URINE 8.5 (4.8-8.0); PROTEIN,URINE NEGATIVE (Neg)
[2019-02-07 03:07] LABS: UA COLLECTION TYPE STRAIGHT CATH
[2019-02-07 03:08] LABS: AMORPHOUS PHOSPHATES 4+; BACTERIA,URINE FEW /HPF (Neg); SQUAMOUS EPITHELIAL CELL,UR FEW /LPF (FEW); WBC,URINE NONE SEEN /HPF (0-4)
[2019-02-07] MEDS: megestrol acetate 400mg/10ml UD oral suspension PO SCH (08:00)
[2019-02-07] MEDS ORDERED: dextrose 5%-normal saline 1,000 ML IV ONE ×2 (08:00→15:30)
[2019-02-07] MEDS: pantoprazole 40mg Tablet.DR PO SCH (08:00)
[2019-02-07] MEDS: lactose-reduced food (Ensure Enlive) - 237ml bottle PO SCH ×3 (08:00→18:00)
[2019-02-07] MEDS: FLUoxetine 20mg capsule PO SCH (08:00)
[2019-02-07] MEDS: OLANZapine 5mg rapidly disint. tablet PO SCH (08:00)
--- NOTE | 2019-02-07 10:03 | NUR ---
reassessment: Pt wt remains low -2.5kg past 24 hours w/ -4L fluid balance. Pt noted to have severe bladder distention w/ high urine output past 24 hours. Pt is AOx2 w/ severe psychosis per MD note. PO 0-25% avg meals slightly up from refusal of all prior meals w/ 25% avg ensure enlive intake receiving megace. RD d/w RN regarding additional bowel care given LBM 02/02 and pt receiving routine colace; likely impacting PO in addition to current SI via starvation. Will continue to monitor. Malnutrition consult. Patient is underweight, low BMI of 17, weighing 103 lbs on standing scale. No prior weights for weight history. Patient reports both unsure if she has lost weight and reporting 24-33 lbs weight loss, reports eating poorly due poor appetite. Per ER physician note patient began lacking communication after her father had an AR, she "denied consuming food or liquids" and had c/o painful swallow; patient in catatonic state with flat affect; lost 38 lbs since october 24 all per MD note. In another progress note it is reported that she lost 30 lbs in two months (this would be a 21% loss with a UBW of 133 lbs). A 38 lb loss since 10/24/18 would have a UBW 141 lbs, leaving the patient at 73% of her UBW with loss of 27% of her weight in three months. Both amounts of weight loss meet criteria for severe malnutrition in the context of very poor PO intake and poor appetite/anorexia. The patient reports she is eating at home, likes applesauce, soup, and is "picky," the progress note further reports the patient stated "yes" when asked if she stopped eating in hopes that she would , SI plan was to starve to . Recommend sending ensure enlive with all meals, d/w bedside RN and dietary. Will continue to follow and monitor PO intake and ONS acceptance. Recommend: 1. continue regular diet; megace per MD 2. Ensure Enlive with all meals 3. Encourage PO Intake 4. bowel care as needed 5. weekly weights Addendum: 02/07/19 at [address] Amended: Links added.
--- NOTE | 2019-02-07 18:10 | NUR ---
Nursing Progress Note: Blanca Legal hold: 5150 Client on involuntary status for DTS Report received from nurse with use of SBAR: MARTI Tsang Why they are here: Pt lives with her parents. Pt has lost 30lbs with the last 2 months per her family. This is believed to be triggered by her parents recent physical health decline (Mother had a Stent placed and father had a double bypass surgery) and loss of a pet dog, per pt's sister and brother. Pt states she has thoughts of "not wanting to be here" stating "the pain is too much" and per the PA notes, stopped eating in hopes she would . Pt. reportedly has slight developmental delay. What has happened this shift: Pt is resting in bed at change of shift. Pt declined all medications and was resistive to care. She allowed straight cath x2 with 400ml of urine in the AM and 300ml at 1400. Dr. Dean provided verbal order for FC which was placed. Pt was combative and resistive to this initially and then complied. She has a PIV in RFA patent and flushing. She received 1000ml of D5 in NS. She states "I am sick, I can't eat, I can't drink", and "I don't know what I am supposed to do". Does not make statements of wanting to and denies SI. Denies A/VH Pt.s intake today: 7 bites of oatmeal with milk and sugar. 6 sips of ensure 2 sips of juice. 1 sip of lunch ensure 1/2 pecan Jello 2 bites of bread pudding sips of water S/I, H/I: Denies but states "I don't know what I am supposed to do" A/VH: Denies Sleep: seen sitting up at edge of bed majority of day ADL's: ambulates self, needs assistance and prompting with ADLs Group attendance: no Were meds taken: no Any med S/E: None reported nor noted Mental Status Exam Appearance: wearing green scrubs, disheveled, hair greasy and unkept Eye contact: Minimal to none Behavior: Isolative Speech: Soft, Mumbled, repetitive Mood: Depressed, Anxious, withdrawn Affect: congruent with mood Thought process: Thought blocking Thought Content: " I don't know what I am supposed to do", "I am old, I can't eat, I can't drink". Cognition: A&Ox3 Insight: Poor Judgment: Poor Interventions: PRN's used: N/A Therapeutic interventions: One on one assessments, give pt. greater meal choices, weigh pt. daily, medication administration, every 15 minute safety checks. Encourage group participation and interaction, encourage going outside and daily shower/ personal care for self. Restraints/seclusion/emergency medication: None Justification of Continued Inpatient Treatment: Pt continues to be refusing food, pt. needs to put on weight, needs crisis interruption, stabilization, and medication adjustment in a safe and therapeutic environment.
[2019-02-07 20:00] VITALS: BP 130/89
[2019-02-07] MEDS: gabapentin 300mg capsule PO SCH (21:00)
[2019-02-07] MEDS: mirtazapine 15mg tablet PO SCH (21:00)
[2019-02-07] MEDS: OLANZapine 2.5MG tablet PO SCH (21:00)
[2019-02-07] MEDS: docusate sod 100mg capsule PO SCH (21:00)
[2019-02-07 21:07] VITALS: BP 130/89
--- NOTE | 2019-02-07 21:48 | NUR ---
Nursing Progress Note: Blanca Legal hold: 5150 Client on involuntary status for DTS Report received from nurse with use of SBAR: MARTI Salgado Why they are here: Pt lives with her parents. Pt has lost 30lbs with the last 2 months per her family. This is believed to be triggered by her parents recent physical health decline (Mother had a Stent placed and father had a double bypass surgery) and loss of a pet dog, per pt's sister and brother. Pt states she has thoughts of "not wanting to be here" stating "the pain is too much" and per the PA notes, stopped eating in hopes she would . Pt. reportedly has slight developmental delay. What has happened this shift: Pt is resting in bed at change of shift. Pt declined all medications and was resistive to care. She has a PIV in RFA patent and flushing. She received 1000ml of D5 in NS. She states "I am sick, I can't eat, I can't drink", and "I don't know what I am supposed to do". Does not make statements of wanting to and denies SI. Denies A/VH. Pt's benavides bag emptied 900 ml output @ 1855 Pt.s intake today: 7 bites of oatmeal with milk and sugar. 6 sips of ensure 2 sips of juice. 1 sip of lunch ensure 1/2 pecan Jello 2 bites of bread pudding sips of water S/I, H/I: Denies but states "I don't know what I am supposed to do" A/VH: Denies Sleep: seen sitting up at edge of bed majority of day ADL's: ambulates self, needs assistance and prompting with ADLs Group attendance: no Were meds taken: no Any med S/E: None reported nor noted Mental Status Exam Appearance: wearing green scrubs, disheveled, hair greasy and unkept Eye contact: Minimal to none Behavior: Isolative Speech: Soft, Mumbled, repetitive Mood: Depressed, Anxious, withdrawn Affect: congruent with mood Thought process: Thought blocking Thought Content: " I don't know what I am supposed to do", "I am old, I can't eat, I can't drink". Cognition: A&Ox3 Insight: Poor Judgment: Poor Interventions: PRN's used: N/A Therapeutic interventions: One on one assessments, give pt. greater meal choices, weigh pt. daily, medication administration, every 15 minute safety checks. Encourage group participation and interaction, encourage going outside and daily shower/ personal care for self. Restraints/seclusion/emergency medication: None Justification of Continued Inpatient Treatment: Pt continues to be refusing food, pt. needs to put on weight, needs crisis interruption, stabilization, and medication adjustment in a safe and therapeutic environment.
[2019-02-08] MEDS ORDERED: dextrose 5%-normal saline 1,000 ML IV ONE ×2 (07:40→15:30)
--- NOTE | 2019-02-08 07:58 | NUR ---
Critical HR: PTs HR 167 palpated. Pt dehydrated. Called Dr Camacho and recieved orders for D5NS bolus 1000cc and at 70cc/hr
[2019-02-08 08:00] VITALS: BP 146/84
[2019-02-08] MEDS: megestrol acetate 400mg/10ml UD oral suspension PO SCH ×2 (08:00→08:09)
[2019-02-08] MEDS: pantoprazole 40mg Tablet.DR PO SCH (08:08)
[2019-02-08] MEDS: OLANZapine 2.5MG tablet PO SCH (08:09)
[2019-02-08] MEDS: FLUoxetine 20mg capsule PO SCH (08:09)
[2019-02-08] MEDS: lactose-reduced food (Ensure Enlive) - 237ml bottle PO SCH ×2 (08:35→13:03)
[2019-02-08 10:00] LABS: CLARITY,URINE SLIGHTLY CLOUDY (Clear); COLOR,URINE STRAW (Yellow); GLUCOSE, URINE >=1000 mg/dl (Neg); KETONES,URINE NEGATIVE (Neg); LEUKOCYTE ESTERASE ,URINE MODERATE (Neg); NITRITES, URINE NEGATIVE (Neg); OCCULT BLOOD,URINE LARGE (Neg); PH,URINE 7.5 (4.8-8.0); PROTEIN,URINE NEGATIVE (Neg); UROBILINOGEN,URINE 0.2 E.U/dL (0.2-1.0)
--- NOTE | 2019-02-08 10:00 | NUR ---
Hospitalist informed of abnormal UA. Awaiting further instruction
[2019-02-08 10:08] LABS: UA COLLECTION TYPE FOLEY CATH
[2019-02-08 10:09] LABS: WBC,URINE TNTC /HPF (0-4)
[2019-02-08 10:10] LABS: BACTERIA,URINE 1+ /HPF (Neg); MUCUS STRANDS NONE SEEN /LPF (Neg); SQUAMOUS EPITHELIAL CELL,UR FEW /LPF (FEW)
--- NOTE | 2019-02-08 11:19 | NUR ---
Spoke with Dr Ivy urology about pts urine retention. states to leave benavides in at least a few days and she plans to come by and evaluate pt in next couple days.
[2019-02-08] MEDS ORDERED: LYR75C PO (15:05)
--- NOTE | 2019-02-08 17:00 | NUR ---
RN gave report to MARTI Hannah in surgical. Pt. to be transferred via wheel chair.
[2019-02-08] MEDS ORDERED: LACT-237 PO (18:28)
[2019-02-08] MEDS ORDERED: OLAN2.5T28 PO (18:28)
[2019-02-08] MEDS ORDERED: BUPR150T8 PO (18:28)
[2019-02-08] MEDS ORDERED: MEGE40TA27 PO (18:28)
[2019-02-08] MEDS ORDERED: MIRT15TA PO (18:28)
[2019-02-08] MEDS ORDERED: buPROPion SR 150mg tablet PO SCH (20:00)
[2019-02-08] MEDS ORDERED: pregabalin 75mg capsule PO SCH (20:00)
== END 2019-02-08 16:42 | disposition home or self-care (01) | DRG 885 ==
LOC: ADULT MH 22:10
PROVIDERS: ADMIT Psychiatry & Neurology Psychiatry; ATTEND Psychiatry & Neurology Psychiatry
DX: F33.3 Major depressive disorder, recurrent, severe with psychotic symptoms (principal); E46 Unspecified protein-calorie malnutrition; Z68.1 Body mass index [BMI] 19.9 or less, adult; E86.0 Dehydration; M79.7 Fibromyalgia; R33.9 Retention of urine, unspecified; R48.0 Dyslexia and alexia; R62.7 Adult failure to thrive; R00.0 Tachycardia, unspecified; Z79.899 Other long term (current) drug therapy
CPT/HCPCS: 36415; 70551; 80053; 80061; 81001; 83036; 84132; 85025; 87077; 87081; 87088; 87186; J7042

== ENCOUNTER 2019-02-08 15:53 | Inpatient (IN) | payer BC ==
[~2019-02-08] VITALS: Ht 170.2 cm; Wt 45.2 kg
[~2019-02-08 15:53] MED LIST changes: +LYR75C PO
[2019-02-08] MEDS ORDERED: metoclopramide 5 mg/ml inj IV PRN (16:35)
[2019-02-08] MEDS ORDERED: magnesium 2GM in 50ml NS 50 ML IV PRN (16:35)
[2019-02-08] MEDS ORDERED: magnesium 4gm in 100ml NS 100 ML IV PRN (16:35)
[2019-02-08] MEDS ORDERED: mag hydrox/Alum hydrox/simeth 30ml oral suspension PO PRN (16:35)
[2019-02-08] MEDS ORDERED: potassium CL 10mEq/100ml bag 100 ML IV PRN (16:35)
[2019-02-08] MEDS ORDERED: potassium Cl 20 mEq SR tablet PO PRN (16:35)
[2019-02-08] MEDS ORDERED: acetaminophen 325mg tablet PO PRN (16:35)
[2019-02-08] MEDS ORDERED: ondansetron/PF 4mg/2ml inj IV PRN (16:35)
[2019-02-08] MEDS ORDERED: acetaminophen 650mg rectal suppository RC PRN (16:35)
[2019-02-08] MEDS ORDERED: bisacodyl 10mg suppository rectal RC PRN (16:35)
[2019-02-08] MEDS ORDERED: magnesium Cl slow-release 64mg tablet PO PRN (16:35)
[2019-02-08] MEDS: dextrose 5%-1/2 normal saline 1,000 ML IV SCH (17:41)
--- NOTE | 2019-02-08 17:45 | NUR ---
Received patient report via phone from Osmar KIDD all questions answered. Will assume patient care when patient comes to the floor.
[2019-02-08 17:50] VITALS: BP 134/94
--- NOTE | 2019-02-08 17:55 | NUR ---
Patient arrived to the floor via wheelchair. patients IV fluids running and benavides intact. Patient was transfered to the bed one person assist with her cane. Patient skin assessment complete and bed alarm call light in place and patient oriented to room and call light
[2019-02-08] MEDS ORDERED: OLAN2.5T28 PO (18:28)
[2019-02-08] MEDS ORDERED: LACT-237 PO (18:28)
[2019-02-08] MEDS ORDERED: MIRT15TA PO (18:28)
[2019-02-08] MEDS ORDERED: BUPR150T8 PO (18:28)
[2019-02-08] MEDS ORDERED: MEGE40TA27 PO (18:28)
[2019-02-08 18:32] LABS: BASOPHILS % (AUTO) 0.3 % (0-1); EOSINOPHILS % (AUTO) 0.2 % (0-6); HEMOGLOBIN 12.2 g/dl (12.0-16.0); LYMPHOCYTES # (AUTO) 0.9 X10'3 (1.1-4.8); MEAN CORPUSCULAR HEMOGLOBIN 32.2 PG (27.0-31.0); MEAN CORPUSCULAR VOLUME 91.9 FL (78-98); MEAN PLATELET VOLUME 6.9 FL (7.4-10.4); MONOCYTES # (AUTO) 0.6 X10'3 (0-0.9); MONOCYTES % (AUTO) 7.9 % (2-12); NEUTROPHILS # (AUTO) 5.9 X10'3 (1.8-7.7); NEUTROPHILS % (AUTO) 79.6 % (42-75); PLATELET COUNT 297 X10'3 (140-440); RED CELL DISTRIBUTION WIDTH 13.5 % (11.5-14.5); WHITE BLOOD COUNT 7.5 X10'3 (4.5-11.0)
[2019-02-08 18:40] LABS: ALANINE AMINOTRANSFERASE 14 U/L (12-78); ALBUMIN 2.8 G/DL (3.4-5.0); ALBUMIN/GLOBULIN RATIO 0.8 (1.1-1.5); ALKALINE PHOSPHATASE 64 IU/L (46-116); ANION GAP 11 (8-16); ASPARTATE AMINO TRANSFERASE 14 U/L (10-37); BILIRUBIN,TOTAL 0.6 MG/DL (0.1-1.0); BLOOD UREA NITROGEN 6 MG/DL (7-18); BUN/CREATININE RATIO 10.3 (6.6-38.0); CALCIUM 8.3 MG/DL (8.5-10.1); CHLORIDE 109 MMOL/L (99-107); CREATININE 0.58 MG/DL (0.40-0.90); GLUCOSE 102 MG/DL (70-104); POTASSIUM 3.1 MMOL/L (3.5-5.1); SODIUM 144 MMOL/L (135-145); TOTAL CARBON DIOXIDE 24.3 MMOL/L (24-32); TOTAL PROTEIN 6.3 G/DL (6.4-8.2); eGFR > 90 ML/MIN
[2019-02-08 20:00] VITALS: BP 134/94
[2019-02-08] MEDS ORDERED: pregabalin 75mg capsule PO SCH (20:00)
[2019-02-08] MEDS ORDERED: OLANZapine 2.5MG tablet PO SCH (20:00)
[2019-02-08] MEDS: dronabinol 2.5mg capsule PO SCH ×2 (20:00→21:07)
[2019-02-08] MEDS: docusate sod 100mg capsule PO SCH ×2 (20:00→21:07)
[2019-02-08] MEDS: potassium CL 10mEq/100ml bag 100 ML IV PRN (22:37)
--- NOTE | 2019-02-08 22:54 | NUR ---
Patient refusing all oral medications. Returned marinol to pharmacy; signed with Sara.
[2019-02-09] VITALS: BP 140/94
[2019-02-09] MEDS: diatr meglu/diatrizoate 30ml oral sol.-(3 dose) bottle PO SCH ×4 (00:15→09:00)
[2019-02-09] MEDS: potassium CL 10mEq/100ml bag 100 ML IV PRN ×6 (00:54→18:07)
[2019-02-09 04:45] VITALS: BP 149/93
--- NOTE | 2019-02-09 05:18 | NUR ---
HR @ 133 bpm @ 0445. Upon entering room patients IV was beeping and patient appeared to be agitated. VS 149/93, HR 133, 98% on RA, RR 14. Recheck on HR was 103 bpm.
[2019-02-09 05:46] LABS: ALBUMIN 3.1 G/DL (3.4-5.0); ANION GAP 12 (8-16); BLOOD UREA NITROGEN 4 MG/DL (7-18); CALCIUM 9.4 MG/DL (8.5-10.1); CHLORIDE 108 MMOL/L (99-107); GLUCOSE 108 MG/DL (70-104); MAGNESIUM 1.8 MG/DL (1.5-2.4); POTASSIUM 3.4 MMOL/L (3.5-5.1); SODIUM 144 MMOL/L (135-145); TOTAL CARBON DIOXIDE 24.1 MMOL/L (24-32); eGFR > 90 ML/MIN
[2019-02-09 05:48] LABS: HEMATOCRIT 39.5 % (35.0-45.0); HEMOGLOBIN 13.8 g/dl (12.0-16.0); MEAN CORPUSCULAR HGB CONC 34.9 g/dL (33.0-36.5); MEAN CORPUSCULAR VOLUME 91.8 FL (78-98); MEAN PLATELET VOLUME 7.1 FL (7.4-10.4); PLATELET COUNT 299 X10'3 (140-440); RED CELL DISTRIBUTION WIDTH 13.4 % (11.5-14.5); WHITE BLOOD COUNT 6.9 X10'3 (4.5-11.0)
--- NOTE | 2019-02-09 06:39 | NUR ---
Problems reprioritized. Patient report given, questions answered & plan of care reviewed with MARTI Wesley.
[2019-02-09] MEDS: enoxaparin 40mg/0.4ml syringe SUBCUT SCH (07:35)
[2019-02-09 08:00] VITALS: BP 143/97
[2019-02-09] MEDS ORDERED: OLANZapine 2.5MG tablet PO SCH (08:00)
[2019-02-09] MEDS: lactose-reduced food (Ensure Enlive) - 237ml bottle PO SCH ×4 (08:00→18:45)
[2019-02-09] MEDS: K and/or MAG REPLACEMENT MC SCH (08:00)
[2019-02-09] MEDS ORDERED: pantoprazole 40mg Tablet.DR PO SCH (08:28)
[2019-02-09] MEDS: dextrose 5%-1/2 normal saline 1,000 ML IV SCH (09:02)
[2019-02-09] MEDS ORDERED: iohexol 300mg/ml 100ml inj. ONE (09:12)
[2019-02-09 11:00] VITALS: BP 130/90
[2019-02-09] MEDS: pregabalin 75mg capsule PO SCH ×2 (12:32→19:27)
[2019-02-09] MEDS: pantoprazole 40mg Tablet.DR PO SCH (12:32)
[2019-02-09] MEDS: buPROPion SR 150mg tablet PO SCH ×2 (12:33→19:27)
[2019-02-09] MEDS: multivitamins, therapeutics tablet PO SCH (12:34)
[2019-02-09] MEDS: docusate sod 100mg capsule PO SCH ×2 (12:34→19:38)
[2019-02-09] MEDS: dronabinol 2.5mg capsule PO SCH (12:34)
--- NOTE | 2019-02-09 15:39 | NUR ---
Malnutrition consult: Patient is underweight, low BMI of 15, weighing 98 lbs on bed scale. Pt has lost 5 pounds since 02/03, however possible weighing error d/t different weighing scales. Patient reports both unsure if she has lost weight and reporting 24-33 lbs weight loss, reports eating poorly due poor appetite. Per ER physician note patient began lacking communication after her father had an CT, she "denied consuming food or liquids" and had c/o painful swallow; patient in catatonic state with flat affect; lost 38 lbs since October 24 all per MD note. In another progress note it is reported that she lost 30 lbs in two months (this would be a 21% loss with a UBW of 133 lbs). A 38 lb loss since 10/24/18 would have a UBW 141 lbs, leaving the patient at 73% of her UBW with loss of 27% of her weight in three months. Both amounts of weight loss meet criteria for severe malnutrition in the context of very poor PO intake and poor appetite/anorexia. The patient reports she is eating at home, likes applesauce, soup, and is "picky," the progress note further reports the patient stated "yes" when asked if she stopped eating in hopes that she would , SI plan was to starve to . Poor PO intake, 0-25% on a regular diet, refusing food and medication unless family is present. Pt is not meeting nutrient needs. Continue sending ensure enlive with all meals, d/w bedside RN and dietary. Attempted to speak with pt to encourage PO and supplement intake and obtain food preferences, however bedside RN recommends speaking with pt when family is there to encourage answers. Noted that pt began receiving remeron for treatment of depression and to increase appetite. Pt also perscribed marinol, recommend different appetite stimulant d/t contraindication with psych hx, d/w . Will continue to follow and monitor PO intake and ONS acceptance. Recommendation: 1. Continue regular diet 2. Continue Ensure Enlive with meals 3. Encourage PO intake 4. Bowel regularity 5. Daily weights Addendum: 02/09/19 at [address] Amended: Lluvia added. Addendum: 02/09/19 at [address] CARI montanez with web design intern note
--- NOTE | 2019-02-09 16:00 | NUR ---
Dr Delacruz has seen ct scan which states can not r/o endometrial malignancy and mild PE. he as spoken to radiologist and they say that recommendation is repeat ct in one week for PE and if it is not better then, start treatment, but no immediate treatment is necessary. For possible malignancy f/u outpatient with transvaginal ultrasound is recommended.
[2019-02-09] MEDS ORDERED: lactose-reduced food (Ensure Enlive) - 237ml bottle PO SCH (18:00)
--- NOTE | 2019-02-09 18:58 | NUR ---
Patient in room [facility] 56. I have received report from MARTI Wesley and had the opportunity to ask questions and assume patient care.
--- NOTE | 2019-02-09 19:25 | NUR ---
Problems reprioritized. Patient report given, questions answered & plan of care reviewed with Braeden Gray.
[2019-02-09] MEDS: risperiDONE 0.5mg tablet PO SCH (19:28)
[2019-02-09] MEDS: megestrol acetate 400mg/10ml UD oral suspension PO SCH (19:28)
[2019-02-09] MEDS: mirtazapine 15mg tablet PO SCH (19:30)
[2019-02-09] MEDS ORDERED: iohexol 350MG/ML 100ml bottle IV ONE (19:52)
[2019-02-09 20:00] VITALS: BP 116/79
[2019-02-10] VITALS: BP 97/69
[2019-02-10] MEDS: dextrose 5%-1/2 normal saline 1,000 ML IV SCH ×3 (05:03→19:33)
[2019-02-10 05:21] LABS: HEMATOCRIT 35.8 % (35.0-45.0); HEMOGLOBIN 12.8 g/dl (12.0-16.0); MEAN CORPUSCULAR HEMOGLOBIN 32.4 PG (27.0-31.0); MEAN CORPUSCULAR HGB CONC 35.6 g/dL (33.0-36.5); MEAN PLATELET VOLUME 6.6 FL (7.4-10.4); PLATELET COUNT 291 X10'3 (140-440); RED BLOOD COUNT 3.93 X10'6 (4.20-5.60); RED CELL DISTRIBUTION WIDTH 13.6 % (11.5-14.5); WHITE BLOOD COUNT 8.5 X10'3 (4.5-11.0)
[2019-02-10 05:28] VITALS: BP 140/88
[2019-02-10 06:02] LABS: ALBUMIN 2.7 G/DL (3.4-5.0); ANION GAP 10 (8-16); BLOOD UREA NITROGEN 7 MG/DL (7-18); BUN/CREATININE RATIO 9.6 (6.6-38.0); CALCIUM 8.6 MG/DL (8.5-10.1); CHLORIDE 108 MMOL/L (99-107); CREATININE 0.73 MG/DL (0.40-0.90); GLUCOSE 107 MG/DL (70-104); MAGNESIUM 1.7 MG/DL (1.5-2.4); PHOSPHORUS 3.4 MG/DL (2.3-4.5); POTASSIUM 3.3 MMOL/L (3.5-5.1); SODIUM 143 MMOL/L (135-145); TOTAL CARBON DIOXIDE 25.3 MMOL/L (24-32); eGFR 84 ML/MIN
--- NOTE | 2019-02-10 06:02 | NUR ---
Pt HR 160's per tele. All other vitals stable. Pt states asymptomatic but appears anxious. MD notified, anti-anxiety requested. EKG obtained. MD reviewed, states no change in orders at this time.
--- NOTE | 2019-02-10 06:34 | NUR ---
Problems reprioritized. Patient report given, questions answered & plan of care reviewed with MARTI Langston.
--- NOTE | 2019-02-10 06:36 | NUR ---
Patient in room [facility] 356. I have received report from MARTI Joaquin and had the opportunity to ask questions and assume patient care.
--- NOTE | 2019-02-10 07:04 | NUR ---
Patient in room [facility] 356. I have received report from MARTI Joaquin and had the opportunity to ask questions and assume patient care.
[2019-02-10] MEDS: docusate sod 100mg capsule PO SCH ×2 (07:28→19:34)
[2019-02-10] MEDS: pregabalin 75mg capsule PO SCH ×2 (07:28→19:34)
[2019-02-10] MEDS: potassium Cl 20 mEq SR tablet PO PRN ×3 (07:28→17:44)
[2019-02-10] MEDS: buPROPion SR 150mg tablet PO SCH ×2 (07:28→19:34)
[2019-02-10] MEDS: multivitamins, therapeutics tablet PO SCH (07:28)
[2019-02-10] MEDS: pantoprazole 40mg Tablet.DR PO SCH (07:29)
[2019-02-10] MEDS: enoxaparin 40mg/0.4ml syringe SUBCUT SCH (07:29)
[2019-02-10 08:00] VITALS: BP 120/80
[2019-02-10] MEDS: lactose-reduced food (Ensure Enlive) - 237ml bottle PO SCH ×3 (08:00→18:26)
[2019-02-10] MEDS: K and/or MAG REPLACEMENT MC SCH (08:00)
[2019-02-10] MEDS: risperiDONE 0.5mg tablet PO SCH ×2 (08:29→19:34)
[2019-02-10] MEDS: megestrol acetate 400mg/10ml UD oral suspension PO SCH ×2 (08:29→19:34)
[2019-02-10] MEDS ORDERED: ringers solution, lacted 1,000 ML IV ONE (10:25)
[2019-02-10] MEDS: LORazepam 0.5 MG tablet PO PRN ×2 (10:39→21:37)
[2019-02-10 11:00] VITALS: BP 113/73
--- NOTE | 2019-02-10 11:53 | NUR ---
Met with Ct today. There has been a significant change since video game script writer saw her yesterday morning. She was alert and oriented. Her affect was bright. She was talkative. She reported she ate breakfast this morning. She wanted video game script writer to sit down and talk to her. She denied any desire to . She reported she did want to previously and stated she had been stressed out. She reported she feels much better and stated she wants to go home. She reported she had been in pain due to fibromyalgia. Her parents came to visit and commented how much better she looks. Ct asked video game script writer to come back and visit later, "don't forget". IFEANYI Ortega
--- NOTE | 2019-02-10 15:21 | NUR ---
Problems reprioritized. Patient report given, questions answered & plan of care reviewed with MARTI Dewitt. Addendum: 02/10/19 at 1529 by Ivis Landers RN MARTI Weeks
--- NOTE | 2019-02-10 15:30 | NUR ---
Reassessment: Pt continues receiving Remeron and now is receiving routine Megace. Pt with significant increase in PO intake, now averaging 75-100% of meals with 50% PO intake of ONS this afternoon meeting nutrient needs. Pt continues to be documented as confused and A/O x 2. Pt is agitated/anxious, receiving Ativan PRN. LBM 02/09. Will continue to follow. Recommendation: 1. Continue regular diet 2. Continue Ensure Enlive TIDWM 3. Encourage PO intake 4. Bowel regularity 5. Daily weights Addendum: 02/10/19 at [address] Amended: Links added.
--- NOTE | 2019-02-10 16:04 | NUR ---
Patient in room [facility] 356. I have received report from Ivis KIDD and had the opportunity to ask questions and assume patient care.
[2019-02-10 18:00] VITALS: BP 115/84
[2019-02-10] MEDS ORDERED: atenolol 25mg tablet PO SCH (18:20)
--- NOTE | 2019-02-10 18:33 | NUR ---
Problems reprioritized. Patient report given, questions answered & plan of care reviewed with prudence RN.
[2019-02-10] MEDS: levoFLOXACIN-Levaquin 500mg/D5 100 ML IV SCH (19:16)
[2019-02-10] MEDS: mirtazapine 15mg tablet PO SCH (21:08)
[2019-02-11] VITALS: BP 113/75
[2019-02-11 05:18] LABS: HEMATOCRIT 31.3 % (35.0-45.0); HEMOGLOBIN 11.1 g/dl (12.0-16.0); MEAN CORPUSCULAR HEMOGLOBIN 32.6 PG (27.0-31.0); MEAN CORPUSCULAR HGB CONC 35.5 g/dL (33.0-36.5); MEAN CORPUSCULAR VOLUME 91.8 FL (78-98); MEAN PLATELET VOLUME 6.8 FL (7.4-10.4); PLATELET COUNT 269 X10'3 (140-440); RED BLOOD COUNT 3.41 X10'6 (4.20-5.60); RED CELL DISTRIBUTION WIDTH 13.7 % (11.5-14.5); WHITE BLOOD COUNT 7.6 X10'3 (4.5-11.0)
[2019-02-11 05:28] LABS: ALBUMIN 2.5 G/DL (3.4-5.0); ANION GAP 7 (8-16); BLOOD UREA NITROGEN 8 MG/DL (7-18); BUN/CREATININE RATIO 13.1 (6.6-38.0); CALCIUM 8.3 MG/DL (8.5-10.1); CHLORIDE 112 MMOL/L (99-107); CREATININE 0.61 MG/DL (0.40-0.90); GLUCOSE 142 MG/DL (70-104); MAGNESIUM 1.5 MG/DL (1.5-2.4); POTASSIUM 3.5 MMOL/L (3.5-5.1); SODIUM 143 MMOL/L (135-145); TOTAL CARBON DIOXIDE 23.9 MMOL/L (24-32); eGFR > 90 ML/MIN
--- NOTE | 2019-02-11 06:23 | NUR ---
Problems reprioritized. Patient report given, questions answered & plan of care reviewed with Brielle KIDD.
[2019-02-11 07:03] VITALS: BP 117/70
[2019-02-11] MEDS ORDERED: atenolol 25mg tablet PO SCH ×2 (08:00→20:00)
[2019-02-11] MEDS: K and/or MAG REPLACEMENT MC SCH (08:00)
[2019-02-11] MEDS: lactose-reduced food (Ensure Enlive) - 237ml bottle PO SCH ×3 (08:00→18:00)
[2019-02-11] MEDS: buPROPion SR 150mg tablet PO SCH ×2 (08:25→20:23)
[2019-02-11] MEDS: multivitamins, therapeutics tablet PO SCH (08:25)
[2019-02-11] MEDS: pantoprazole 40mg Tablet.DR PO SCH (08:26)
[2019-02-11] MEDS: docusate sod 100mg capsule PO SCH ×2 (08:26→20:24)
[2019-02-11] MEDS: pregabalin 75mg capsule PO SCH ×2 (08:27→20:24)
[2019-02-11] MEDS: levoFLOXACIN-Levaquin 500mg/D5 100 ML IV SCH (08:28)
[2019-02-11] MEDS: enoxaparin 40mg/0.4ml syringe SUBCUT SCH (08:28)
[2019-02-11] MEDS: dextrose 5%-1/2 normal saline 1,000 ML IV SCH (08:29)
[2019-02-11] MEDS: megestrol acetate 400mg/10ml UD oral suspension PO SCH ×2 (08:54→20:23)
[2019-02-11] MEDS: risperiDONE 0.5mg tablet PO SCH (08:54)
[2019-02-11 11:00] VITALS: BP 105/67
--- NOTE | 2019-02-11 14:04 | NUR ---
manager technical training trying to do transvaginal US per MD orders. Patient consented but not very cooperative with treatment. Patients benavides catheter DC'd per MD orders and procedure. Patient would not let the tech do the internal portion of the ultrasound refused. Transvaginal US Discontinued per patient request. Addendum: 02/11/19 at 1518 by Brielle Riojas RN Dr Sera pastrana
--- NOTE | 2019-02-11 14:26 | NUR ---
Met with Ct today. She was upset that they wanted to do an ultrasound on her "private parts" and was upset that it was "right after lunch". Ct reported she has been eating meals today. While talking to her she grabbed a handful of gold fish crackers and ate them. She denied any desire today. She actually expressed concern about her heart rate being too high. She was friendly and cooperative with typewriter operator automatic. She was verbally expressive, alert and oriented. She thanked typewriter operator automatic for visiting. IFEANYI Ortega
[2019-02-11 18:00] VITALS: BP 125/80
--- NOTE | 2019-02-11 19:35 | NUR ---
pt bladder scan revealed over 1L after complaint of discomfort and heart fluttering. Dr. Ivy notified, order for benavides obtained and placed. approximately 1200mL's drained. will continue to monitor
[2019-02-11] MEDS: lactobacillus rhamnosus 10,000 MMU CELLS/CAPSULE PO SCH (20:24)
[2019-02-11] MEDS: mirtazapine 15mg tablet PO SCH (20:34)
[2019-02-11] MEDS: risperiDONE 0.25mg tablet PO SCH (20:45)
--- NOTE | 2019-02-11 22:59 | NUR ---
patient previously pulled out Iv around beginning of shift, pt cooperative with restarting IV access now.
[2019-02-12] VITALS: BP 109/74
[2019-02-12 06:11] LABS: ALBUMIN 2.5 G/DL (3.4-5.0); ANION GAP 9 (8-16); BLOOD UREA NITROGEN 8 MG/DL (7-18); BUN/CREATININE RATIO 13.6 (6.6-38.0); CALCIUM 8.3 MG/DL (8.5-10.1); CHLORIDE 110 MMOL/L (99-107); CREATININE 0.59 MG/DL (0.40-0.90); GLUCOSE 97 MG/DL (70-104); MAGNESIUM 1.7 MG/DL (1.5-2.4); PHOSPHORUS 3.7 MG/DL (2.3-4.5); POTASSIUM 3.2 MMOL/L (3.5-5.1); SODIUM 142 MMOL/L (135-145); TOTAL CARBON DIOXIDE 23.4 MMOL/L (24-32); eGFR > 90 ML/MIN
[2019-02-12 06:37] LABS: HEMATOCRIT 32.3 % (35.0-45.0); HEMOGLOBIN 11.3 g/dl (12.0-16.0); MEAN CORPUSCULAR HEMOGLOBIN 32.4 PG (27.0-31.0); MEAN CORPUSCULAR HGB CONC 34.9 g/dL (33.0-36.5); MEAN CORPUSCULAR VOLUME 92.9 FL (78-98); PLATELET COUNT 254 X10'3 (140-440); RED BLOOD COUNT 3.47 X10'6 (4.20-5.60); RED CELL DISTRIBUTION WIDTH 13.9 % (11.5-14.5); WHITE BLOOD COUNT 6.3 X10'3 (4.5-11.0)
--- NOTE | 2019-02-12 06:45 | NUR ---
report given to MARTI Dolan
--- NOTE | 2019-02-12 06:46 | NUR ---
Patient in room [facility] 356. I have received report from Asim KIDD and had the opportunity to ask questions and assume patient care.
[2019-02-12] MEDS: K and/or MAG REPLACEMENT MC SCH (06:59)
[2019-02-12] MEDS ORDERED: potassium CL 10mEq/100ml bag 100 ML IV PRN (07:00)
[2019-02-12] MEDS ORDERED: potassium Cl 20 mEq SR tablet PO PRN (07:00)
[2019-02-12] MEDS: lactose-reduced food (Ensure Enlive) - 237ml bottle PO SCH ×3 (08:00→21:34)
[2019-02-12 08:17] VITALS: BP 121/73
[2019-02-12] MEDS: buPROPion SR 150mg tablet PO SCH ×2 (08:55→21:14)
[2019-02-12] MEDS: docusate sod 100mg capsule PO SCH ×2 (08:55→21:14)
[2019-02-12] MEDS: FLUoxetine 20mg capsule PO SCH (08:55)
[2019-02-12] MEDS: pregabalin 75mg capsule PO SCH ×2 (08:55→21:14)
[2019-02-12] MEDS: megestrol acetate 400mg/10ml UD oral suspension PO SCH ×3 (08:55→21:12)
[2019-02-12] MEDS: multivitamins, therapeutics tablet PO SCH (08:56)
[2019-02-12] MEDS: enoxaparin 40mg/0.4ml syringe SUBCUT SCH (08:56)
[2019-02-12] MEDS: pantoprazole 40mg Tablet.DR PO SCH (08:56)
[2019-02-12] MEDS: lactobacillus rhamnosus 10,000 MMU CELLS/CAPSULE PO SCH ×2 (08:56→21:14)
--- NOTE | 2019-02-12 09:04 | NUR ---
i scanned the risperidone and it came up discontinued, did not give med. the atenolol is available but the phramacy forgot to put a label to scan the med. messaged pharmacy. waiting for them to fix this med to admin to pt.
[2019-02-12] MEDS: potassium Cl 20 mEq SR tablet PO PRN ×2 (09:55→15:04)
[2019-02-12] MEDS: atenolol 25mg tablet PO SCH ×2 (10:33→21:15)
[2019-02-12 11:00] VITALS: BP 91/55
[2019-02-12] MEDS: dextrose 5%-1/2 normal saline 1,000 ML IV SCH ×2 (12:03→21:15)
[2019-02-12] MEDS: levoFLOXACIN 500mg tablet PO SCH (13:11)
[2019-02-12] MEDS: risperiDONE 0.25mg tablet PO SCH (13:36)
--- NOTE | 2019-02-12 14:21 | NUR ---
PAGER ID: [phone] MESSAGE: RE: ROOM 356b. Blanca BROOKS PT COMPLAINING SOMETHING IS WRONG WITH CATHETER AND SHE WANTS IT OUT. ITS BURNING. SHE HAD CATH PUT BACK IN YESTERDAY FOR URINARY RETENTION. DO YOU WANT TO ORDER A UA? JERRY KIDD [phone]
[2019-02-12] MEDS: phenazopyridine 100mg tablet PO SCH ×2 (15:04→21:14)
--- NOTE | 2019-02-12 15:29 | NUR ---
OLD CATHETER REMOVED AND NEW 16FR CUEVAS CATH PLACED. pT NO LONGER DISTRAUGHT.
--- NOTE | 2019-02-12 16:26 | NUR ---
Report received from Magdaleno KIDD
--- NOTE | 2019-02-12 16:31 | NUR ---
Problems reprioritized. Patient report given, questions answered & plan of care reviewed with SERGEI ROMERO RN.
--- NOTE | 2019-02-12 17:25 | NUR ---
Paged Dr. Zamora: Surgical Flr Galilea RN ext [phone]. RE: Blanca Recinos. Patient appers confused, called police stating her catheter has problem. Pt pulledout her benavides cath and wont follow instructions. Can we get sitter order?
--- NOTE | 2019-02-12 18:13 | NUR ---
Patient's peripheral IV catheter is noted out also at this time
--- NOTE | 2019-02-12 18:48 | NUR ---
Problems reprioritized. Patient report given, questions answered & plan of care reviewed with Marina Schneider RN.
--- NOTE | 2019-02-12 19:11 | NUR ---
Patient in room [facility] 356. I have received report from MARTI WEBER and had the opportunity to ask questions and assume patient care. Addendum: 02/12/19 at 1911 by Cat Salvador RN Amended: Links added.
[2019-02-12] MEDS ORDERED: LORazepam 2 mg/ml vial IV PRN (19:15)
[2019-02-12] MEDS: polyethylene glycol 3350 17gm powd pack PO SCH ×2 (21:00→21:15)
[2019-02-12] MEDS: acetaminophen 325mg tablet PO PRN (21:14)
[2019-02-12] MEDS: risperiDONE 0.5mg tablet PO SCH (21:14)
[2019-02-12] MEDS: mirtazapine 15mg tablet PO SCH (21:14)
--- NOTE | 2019-02-12 23:00 | NUR ---
patient agreed to place f/c at the time of giving her medications and new IV inserted as well. After few hours patient noted pulling her f/c out and was c/o pain. F/c was d/c and removed accordingly. patient had to give ativan since she was trying to pull IV out and went to sleep.
--- NOTE | 2019-02-13 04:00 | NUR ---
patient refused to get her VS check at this shift.
--- NOTE | 2019-02-13 06:01 | NUR ---
patient was bladder scanned and only found 86cc, Addendum: 02/13/19 at 0631 by Cat Salvador RN will endorse to am shift.
[2019-02-13 06:18] LABS: ALBUMIN 2.5 G/DL (3.4-5.0); ANION GAP 8 (8-16); BLOOD UREA NITROGEN 20 MG/DL (7-18); BUN/CREATININE RATIO 30.8 (6.6-38.0); CALCIUM 8.2 MG/DL (8.5-10.1); CHLORIDE 110 MMOL/L (99-107); CREATININE 0.65 MG/DL (0.40-0.90); GLUCOSE 104 MG/DL (70-104); MAGNESIUM 1.8 MG/DL (1.5-2.4); PHOSPHORUS 3.5 MG/DL (2.3-4.5); POTASSIUM 3.7 MMOL/L (3.5-5.1); SODIUM 144 MMOL/L (135-145); TOTAL CARBON DIOXIDE 25.6 MMOL/L (24-32); eGFR > 90 ML/MIN
--- NOTE | 2019-02-13 06:27 | NUR ---
Problems reprioritized. Patient report given, questions answered & plan of care reviewed with MARTI Calero.
[2019-02-13 06:30] VITALS: BP 121/65
[2019-02-13 06:31] LABS: HEMATOCRIT 31.7 % (35.0-45.0); HEMOGLOBIN 11.1 g/dl (12.0-16.0); MEAN CORPUSCULAR HEMOGLOBIN 32.3 PG (27.0-31.0); MEAN CORPUSCULAR HGB CONC 35.1 g/dL (33.0-36.5); MEAN PLATELET VOLUME 6.8 FL (7.4-10.4); PLATELET COUNT 243 X10'3 (140-440); RED BLOOD COUNT 3.45 X10'6 (4.20-5.60); WHITE BLOOD COUNT 7.8 X10'3 (4.5-11.0)
--- NOTE | 2019-02-13 06:33 | NUR ---
Patient in room [facility] 356. I have received report from Marina Schneider RN and had the opportunity to ask questions and assume patient care.
[2019-02-13] MEDS: lactose-reduced food (Ensure Enlive) - 237ml bottle PO SCH ×3 (08:00→18:00)
[2019-02-13] MEDS: K and/or MAG REPLACEMENT MC SCH (08:00)
[2019-02-13] MEDS ORDERED: magnesium citrate 296ml oral solution PO ONE (08:15)
[2019-02-13] MEDS ORDERED: magnesium 4gm in 100ml NS 100 ML IV PRN (09:05)
[2019-02-13] MEDS ORDERED: potassium Cl 20 mEq SR tablet PO PRN ×2 (09:05)
[2019-02-13] MEDS ORDERED: magnesium Cl slow-release 64mg tablet PO PRN (09:05)
[2019-02-13] MEDS ORDERED: potassium CL 10mEq/100ml bag 100 ML IV PRN (09:05)
[2019-02-13] MEDS: pantoprazole 40mg Tablet.DR PO SCH (09:13)
[2019-02-13] MEDS: megestrol acetate 400mg/10ml UD oral suspension PO SCH ×2 (09:13→19:47)
[2019-02-13] MEDS: magnesium hydroxide 30ml (MOM) UD suspension PO PRN (09:13)
[2019-02-13] MEDS: buPROPion SR 150mg tablet PO SCH ×2 (09:14→19:47)
[2019-02-13] MEDS: pregabalin 75mg capsule PO SCH ×2 (09:14→19:46)
[2019-02-13] MEDS: phenazopyridine 100mg tablet PO SCH ×3 (09:14→17:43)
[2019-02-13] MEDS: risperiDONE 0.5mg tablet PO SCH ×2 (09:14→19:47)
[2019-02-13] MEDS: atenolol 25mg tablet PO SCH ×2 (09:15→19:54)
[2019-02-13] MEDS: FLUoxetine 20mg capsule PO SCH (09:18)
[2019-02-13] MEDS: lactobacillus rhamnosus 10,000 MMU CELLS/CAPSULE PO SCH ×2 (09:18→19:47)
[2019-02-13] MEDS: multivitamins, therapeutics tablet PO SCH (09:18)
[2019-02-13] MEDS: docusate sod 100mg capsule PO SCH ×2 (09:18→19:46)
[2019-02-13] MEDS: enoxaparin 40mg/0.4ml syringe SUBCUT SCH (09:19)
[2019-02-13 11:00] VITALS: BP 118/61
[2019-02-13] MEDS: levoFLOXACIN 500mg tablet PO SCH (11:17)
--- NOTE | 2019-02-13 13:36 | NUR ---
Reassessment: Pt PO fluctuating 25-50% avg meals and ONS past 3 days slightly down from prior but overall great improvement since admit. Receiving megace and remeron w/ family encouraged to attend meal times to help encourage PO per MD note. LBM 02/13. Partially meeting repletion nutrition needs. Will continue to monitor. Recommendation: 1. Continue regular diet; encourage PO 2. Continue Ensure Enlive TIDWM 3. Appetite stimulants per MD 4. Bowel regularity 5. Daily weights Addendum: 02/13/19 at [address] Amended: Links added.
--- NOTE | 2019-02-13 18:21 | NUR ---
Problems reprioritized. Patient report given, questions answered & plan of care reviewed with Shawn KIDD.
--- NOTE | 2019-02-13 18:39 | NUR ---
Patient in room [facility]RB[facility] 356B. I have received report from Galilea RN and Iesha RN and had the opportunity to ask questions and assume patient care. Patient has sitter at bedside and is stable at this time. On room air and is saline locked. Will continue to closely.
[2019-02-13 19:00] VITALS: BP 104/60
--- NOTE | 2019-02-13 20:50 | NUR ---
ASHA Winchester at bedside discussing current state of well-being with patient. Patient observed to be closed off and is vague with intent to harm self. After what was a very brief conversation, the patient stated she didn't want to talk about "it" anymore. Before exiting room, Ryan stated, "OK, well I will see you tomorrow." The patient replied with, "If God doesn't take my soul." Sitter remains at bedside. Will continue to monitor closely.
[2019-02-13] MEDS: mirtazapine 15mg tablet PO SCH (21:09)
[2019-02-13] MEDS: tamsulosin 0.4mg capsule PO SCH (21:10)
[2019-02-13] MEDS: polyethylene glycol 3350 17gm powd pack PO SCH (21:13)
[2019-02-13 23:00] VITALS: BP 123/66
[2019-02-14] MEDS: dextrose 5%-1/2 normal saline 1,000 ML IV SCH ×2 (04:03→13:55)
--- NOTE | 2019-02-14 06:09 | NUR ---
Problems reprioritized. Patient report given, questions answered & plan of care reviewed with MARTI Simon and MARTI Pacheco.
[2019-02-14 08:00] VITALS: BP 104/66
[2019-02-14] MEDS: atenolol 25mg tablet PO SCH ×2 (08:00→19:42)
[2019-02-14] MEDS: lactose-reduced food (Ensure Enlive) - 237ml bottle PO SCH ×3 (08:00→18:00)
[2019-02-14] MEDS: K and/or MAG REPLACEMENT MC SCH (08:00)
[2019-02-14] MEDS: phenazopyridine 100mg tablet PO SCH ×3 (08:34→19:44)
[2019-02-14] MEDS: lactobacillus rhamnosus 10,000 MMU CELLS/CAPSULE PO SCH ×2 (08:34→19:43)
[2019-02-14] MEDS: buPROPion SR 100mg tab PO SCH ×2 (08:34→19:43)
[2019-02-14] MEDS: docusate sod 100mg capsule PO SCH ×2 (08:34→19:42)
[2019-02-14] MEDS: pregabalin 75mg capsule PO SCH ×2 (08:34→19:43)
[2019-02-14] MEDS: pantoprazole 40mg Tablet.DR PO SCH (08:36)
[2019-02-14] MEDS: FLUoxetine 20mg capsule PO SCH (08:36)
[2019-02-14] MEDS: megestrol acetate 400mg/10ml UD oral suspension PO SCH ×2 (08:36→19:41)
[2019-02-14] MEDS: multivitamins, therapeutics tablet PO SCH (08:36)
[2019-02-14] MEDS: enoxaparin 40mg/0.4ml syringe SUBCUT SCH (08:37)
[2019-02-14] MEDS: risperiDONE 0.5mg tablet PO SCH ×2 (09:17→19:44)
[2019-02-14 09:59] LABS: BASOPHILS % (AUTO) 0.4 % (0-1); EOSINOPHILS # (AUTO) 0.1 X10'3 (0-0.9); HEMATOCRIT 35.4 % (35.0-45.0); HEMOGLOBIN 12.1 g/dl (12.0-16.0); LYMPHOCYTES # (AUTO) 0.9 X10'3 (1.1-4.8); LYMPHOCYTES % (AUTO) 12.9 % (21-51); MEAN CORPUSCULAR HEMOGLOBIN 32.3 PG (27.0-31.0); MEAN CORPUSCULAR HGB CONC 34.1 g/dL (33.0-36.5); MEAN CORPUSCULAR VOLUME 94.8 FL (78-98); MONOCYTES # (AUTO) 0.3 X10'3 (0-0.9); MONOCYTES % (AUTO) 4.6 % (2-12); NEUTROPHILS # (AUTO) 5.9 X10'3 (1.8-7.7); NEUTROPHILS % (AUTO) 81.1 % (42-75); PLATELET COUNT 234 X10'3 (140-440); RED BLOOD COUNT 3.74 X10'6 (4.20-5.60); RED CELL DISTRIBUTION WIDTH 14.4 % (11.5-14.5); WHITE BLOOD COUNT 7.2 X10'3 (4.5-11.0)
[2019-02-14 10:22] LABS: ALANINE AMINOTRANSFERASE 19 U/L (12-78); ALBUMIN 2.6 G/DL (3.4-5.0); ALBUMIN/GLOBULIN RATIO 0.7 (1.1-1.5); ALKALINE PHOSPHATASE 56 IU/L (46-116); ANION GAP 7 (8-16); ASPARTATE AMINO TRANSFERASE 20 U/L (10-37); BILIRUBIN,TOTAL 0.5 MG/DL (0.1-1.0); BLOOD UREA NITROGEN 10 MG/DL (7-18); BUN/CREATININE RATIO 16.7 (6.6-38.0); CALCIUM 8.4 MG/DL (8.5-10.1); CHLORIDE 110 MMOL/L (99-107); GLUCOSE 120 MG/DL (70-104); POTASSIUM 3.6 MMOL/L (3.5-5.1); SODIUM 141 MMOL/L (135-145); TOTAL CARBON DIOXIDE 23.7 MMOL/L (24-32); TOTAL PROTEIN 6.2 G/DL (6.4-8.2); eGFR > 90 ML/MIN
[2019-02-14] MEDS: levoFLOXACIN 500mg tablet PO SCH (11:10)
--- NOTE | 2019-02-14 11:12 | NUR ---
Student documentation: I have reviewed and agree with all interventions, assessments performed and documented by Taryn EATON from [facility]. Student Medication Administration: For this medication-pass time frame, all medication were reviewed, dispensed, administered and documented per hospital policy by Taryn EATON from [facility].
--- NOTE | 2019-02-14 11:45 | NUR ---
145cc post straight cath
[2019-02-14] MEDS: acetaminophen 325mg tablet PO PRN (15:51)
--- NOTE | 2019-02-14 17:03 | NUR ---
Straight cath. Post straight cath, bladder scan was 111 Addendum: 02/14/19 at 1703 by Tara Marie RN Amended: Links added.
--- NOTE | 2019-02-14 18:53 | NUR ---
Patient in room [facility] 356. I have received report from MARTI Simon and had the opportunity to ask questions and assume patient care. Addendum: 02/14/19 at 1853 by Delia Luna RN Amended: Links added.
[2019-02-14] MEDS: polyethylene glycol 3350 17gm powd pack PO SCH (19:41)
[2019-02-14] MEDS: mirtazapine 15mg tablet PO SCH (19:42)
[2019-02-14] MEDS: tamsulosin 0.4mg capsule PO SCH (19:43)
[2019-02-14 19:49] VITALS: BP 115/79
[2019-02-14 23:56] VITALS: BP 121/79
[2019-02-15 05:38] LABS: BASOPHILS % (AUTO) 0.5 % (0-1); EOSINOPHILS # (AUTO) 0.1 X10'3 (0-0.9); EOSINOPHILS % (AUTO) 0.8 % (0-6); HEMATOCRIT 31.8 % (35.0-45.0); HEMOGLOBIN 11.2 g/dl (12.0-16.0); LYMPHOCYTES % (AUTO) 15.1 % (21-51); MEAN CORPUSCULAR HEMOGLOBIN 32.4 PG (27.0-31.0); MEAN CORPUSCULAR HGB CONC 35.2 g/dL (33.0-36.5); MEAN PLATELET VOLUME 6.8 FL (7.4-10.4); MONOCYTES # (AUTO) 0.5 X10'3 (0-0.9); MONOCYTES % (AUTO) 7.8 % (2-12); NEUTROPHILS # (AUTO) 5.2 X10'3 (1.8-7.7); NEUTROPHILS % (AUTO) 75.8 % (42-75); PLATELET COUNT 234 X10'3 (140-440); RED BLOOD COUNT 3.46 X10'6 (4.20-5.60); RED CELL DISTRIBUTION WIDTH 14.2 % (11.5-14.5); WHITE BLOOD COUNT 6.9 X10'3 (4.5-11.0)
[2019-02-15 05:57] LABS: ALANINE AMINOTRANSFERASE 20 U/L (12-78); ALBUMIN 2.6 G/DL (3.4-5.0); ALBUMIN/GLOBULIN RATIO 0.8 (1.1-1.5); ALKALINE PHOSPHATASE 53 IU/L (46-116); ANION GAP 9 (8-16); ASPARTATE AMINO TRANSFERASE 14 U/L (10-37); BILIRUBIN,TOTAL 0.6 MG/DL (0.1-1.0); BLOOD UREA NITROGEN 5 MG/DL (7-18); BUN/CREATININE RATIO 8.2 (6.6-38.0); CALCIUM 8.5 MG/DL (8.5-10.1); CHLORIDE 111 MMOL/L (99-107); CREATININE 0.61 MG/DL (0.40-0.90); GLUCOSE 85 MG/DL (70-104); MAGNESIUM 2.1 MG/DL (1.5-2.4); POTASSIUM 3.5 MMOL/L (3.5-5.1); SODIUM 146 MMOL/L (135-145); TOTAL CARBON DIOXIDE 26.3 MMOL/L (24-32); TOTAL PROTEIN 5.8 G/DL (6.4-8.2); eGFR > 90 ML/MIN
[2019-02-15 07:00] VITALS: BP 111/73
[2019-02-15] MEDS: lactobacillus rhamnosus 10,000 MMU CELLS/CAPSULE PO SCH ×2 (08:00→20:32)
[2019-02-15] MEDS: megestrol acetate 400mg/10ml UD oral suspension PO SCH ×2 (08:00→20:30)
[2019-02-15] MEDS: pantoprazole 40mg Tablet.DR PO SCH (08:00)
[2019-02-15] MEDS: lactose-reduced food (Ensure Enlive) - 237ml bottle PO SCH ×5 (08:00→20:36)
[2019-02-15] MEDS: K and/or MAG REPLACEMENT MC SCH (08:00)
[2019-02-15] MEDS: docusate sod 100mg capsule PO SCH ×2 (08:00→20:32)
[2019-02-15] MEDS: risperiDONE 0.5mg tablet PO SCH ×2 (08:00→20:32)
[2019-02-15] MEDS: phenazopyridine 100mg tablet PO SCH ×3 (08:00→18:24)
[2019-02-15] MEDS: buPROPion SR 100mg tab PO SCH ×2 (08:01→20:32)
[2019-02-15] MEDS: multivitamins, therapeutics tablet PO SCH (08:01)
[2019-02-15] MEDS: sertraline 25mg tablet PO SCH (08:01)
[2019-02-15] MEDS: pregabalin 75mg capsule PO SCH ×2 (08:01→20:32)
[2019-02-15] MEDS: enoxaparin 40mg/0.4ml syringe SUBCUT SCH (08:02)
[2019-02-15] MEDS: atenolol 25mg tablet PO SCH ×2 (08:02→20:31)
[2019-02-15] MEDS: dextrose 5%-1/2 normal saline 1,000 ML IV SCH (08:08)
[2019-02-15] MEDS: magnesium hydroxide 30ml (MOM) UD suspension PO PRN (09:58)
[2019-02-15 11:00] VITALS: BP 127/69
[2019-02-15] MEDS: levoFLOXACIN 500mg tablet PO SCH (11:02)
--- NOTE | 2019-02-15 15:17 | NUR ---
spoke to pharmacy regarding the late administration of pyridium, pharmacy approved administration.
--- NOTE | 2019-02-15 16:00 | NUR ---
Patient bladder scan showed 585ml's in bladder have call out to Dr Zamora to see if he would like us to continue Straight cath or to place benavides.
--- NOTE | 2019-02-15 17:00 | NUR ---
Per Dr Zamora he would like to place benavides if patient would allow us to, otherwise straight cath/ Per patient she does not want us to place benavides "in her soul" patient will be straight cath.
[2019-02-15 18:00] VITALS: BP 119/77
--- NOTE | 2019-02-15 19:58 | NUR ---
Patient in room [facility] 356. I have received report from MARTI Sanders and had the opportunity to ask questions and assume patient care. Addendum: 02/15/19 at 1957 by Delia Luna RN Amended: Links added.
[2019-02-15] MEDS: polyethylene glycol 3350 17gm powd pack PO SCH (20:31)
[2019-02-15] MEDS: mirtazapine 15mg tablet PO SCH (20:32)
[2019-02-15] MEDS: Melatonin 3mg tablet PO SCH (20:32)
[2019-02-15] MEDS: tamsulosin 0.4mg capsule PO SCH (20:32)
[2019-02-16] VITALS: BP 93/58
--- NOTE | 2019-02-16 03:10 | NUR ---
Bladder scanned pt. at 2100 which showed >550. got pt up to bsc w/o any urine output.attempted to straight cath pt. x 2 w/o success. pt. refused to have nursing try a third time. informed pt. that we would try at 0200 again. scanned pts. bladder which showed >850. got pt up to bsc w/o any urine output. straight cathed pt with 950 out.
--- NOTE | 2019-02-16 06:58 | NUR ---
Patient in room [facility] 356. I have received report from shelia kim and had the opportunity to ask questions and assume patient care.
[2019-02-16 08:00] VITALS: BP 109/66
[2019-02-16] MEDS: K and/or MAG REPLACEMENT MC SCH (08:00)
[2019-02-16] MEDS: risperiDONE 0.5mg tablet PO SCH ×2 (08:22→20:42)
[2019-02-16] MEDS: megestrol acetate 400mg/10ml UD oral suspension PO SCH ×2 (08:22→20:48)
[2019-02-16] MEDS: enoxaparin 40mg/0.4ml syringe SUBCUT SCH (08:23)
[2019-02-16] MEDS: docusate sod 100mg capsule PO SCH ×2 (08:24→20:00)
[2019-02-16] MEDS: pantoprazole 40mg Tablet.DR PO SCH (08:24)
[2019-02-16] MEDS: pregabalin 75mg capsule PO SCH ×2 (08:25→20:46)
[2019-02-16] MEDS: buPROPion SR 100mg tab PO SCH ×2 (08:25→20:46)
[2019-02-16] MEDS: sertraline 25mg tablet PO SCH (08:25)
[2019-02-16] MEDS: lactobacillus rhamnosus 10,000 MMU CELLS/CAPSULE PO SCH ×2 (08:25→20:45)
[2019-02-16] MEDS: multivitamins, therapeutics tablet PO SCH (08:25)
[2019-02-16] MEDS: phenazopyridine 100mg tablet PO SCH ×3 (08:25→18:14)
[2019-02-16] MEDS: atenolol 25mg tablet PO SCH ×2 (08:26→20:00)
[2019-02-16 09:03] LABS: BASOPHILS % (AUTO) 0.4 % (0-1); EOSINOPHILS % (AUTO) 0.7 % (0-6); HEMATOCRIT 32.2 % (35.0-45.0); HEMOGLOBIN 11.1 g/dl (12.0-16.0); LYMPHOCYTES # (AUTO) 0.6 X10'3 (1.1-4.8); LYMPHOCYTES % (AUTO) 11.1 % (21-51); MEAN CORPUSCULAR HEMOGLOBIN 32.5 PG (27.0-31.0); MEAN CORPUSCULAR HGB CONC 34.4 g/dL (33.0-36.5); MEAN CORPUSCULAR VOLUME 94.6 FL (78-98); MEAN PLATELET VOLUME 6.5 FL (7.4-10.4); MONOCYTES # (AUTO) 0.3 X10'3 (0-0.9); MONOCYTES % (AUTO) 6.6 % (2-12); NEUTROPHILS # (AUTO) 4.2 X10'3 (1.8-7.7); NEUTROPHILS % (AUTO) 81.2 % (42-75); PLATELET COUNT 227 X10'3 (140-440); RED BLOOD COUNT 3.41 X10'6 (4.20-5.60); RED CELL DISTRIBUTION WIDTH 14.5 % (11.5-14.5); WHITE BLOOD COUNT 5.1 X10'3 (4.5-11.0)
[2019-02-16 09:15] LABS: ALANINE AMINOTRANSFERASE 19 U/L (12-78); ALBUMIN 2.7 G/DL (3.4-5.0); ALBUMIN/GLOBULIN RATIO 0.8 (1.1-1.5); ALKALINE PHOSPHATASE 56 IU/L (46-116); ANION GAP 7 (8-16); ASPARTATE AMINO TRANSFERASE 14 U/L (10-37); BILIRUBIN,TOTAL 0.6 MG/DL (0.1-1.0); BLOOD UREA NITROGEN 12 MG/DL (7-18); CALCIUM 8.7 MG/DL (8.5-10.1); CHLORIDE 109 MMOL/L (99-107); GLUCOSE 94 MG/DL (70-104); POTASSIUM 3.8 MMOL/L (3.5-5.1); SODIUM 144 MMOL/L (135-145); TOTAL CARBON DIOXIDE 28.1 MMOL/L (24-32); TOTAL PROTEIN 6.2 G/DL (6.4-8.2); eGFR > 90 ML/MIN
[2019-02-16] MEDS ORDERED: magnesium citrate 296ml oral solution PO ONE (10:35)
--- NOTE | 2019-02-16 10:44 | NUR ---
Patient ambulated and wanted to attempt to spontaneous void however patient unable to void. Bladder scan shows 345ml. Will monitor and straight cath prn as ordered.
[2019-02-16 12:00] VITALS: BP 88/52
--- NOTE | 2019-02-16 13:00 | NUR ---
Patient tolerated insertion of benavides catheter well by MARTI Mosley well. Light bossman urine drained. Patient stated she will attempt to pull out benavides catheter. Educated patient to not pull out benavides catheter. Patient sister in law at bedside and reinforced not pulling out benavides catheter. Patient BP 89/59 hr 85. Patient denies any complaints other than benavides catheter insertion discomfort. Dr. Zamora notified of patient stating she will pull out benavides catheter and of BP.
[2019-02-16] MEDS: levoFLOXACIN 500mg tablet PO SCH (13:55)
[2019-02-16] MEDS ORDERED: normal saline 1000ml 1,000 ML IV ONE (14:50)
--- NOTE | 2019-02-16 14:51 | NUR ---
Reassessment: Pt PO 25-50% avg meals mostly 25% past 2 days w/ 0-25% ONS not meeting needs. Continues on megace and remeron. Per MD note; pt tired and wants to rest and still has SI. LBM 02/13. Stable to return to unit per MD note. Wt has decreased 2kg in 24 hours w/ -2L fluid balance note. Will continue to monitor. Recommendation: 1. Continue regular diet; encourage PO 2. Continue Ensure Enlive TIDWM 3. Appetite stimulants per MD 4. routine bowel care 5. Daily weights Addendum: 02/16/19 at [address] Amended: Links added.
--- NOTE | 2019-02-16 15:14 | NUR ---
Patient had benavides placed as patient is consistently retaining 500cc+. Sitter placed to prevent benavides tugging sitter approved as per MD Zamora
[2019-02-16] MEDS: normal saline 1000ml 1,000 ML IV SCH (17:36)
[2019-02-16] MEDS: lactose-reduced food (Ensure Enlive) - 237ml bottle PO SCH (18:00)
--- NOTE | 2019-02-16 18:53 | NUR ---
Patient in room [facility] 356. I have received report from Tito RN and MARTI Baca and had the opportunity to ask questions and assume patient care.
--- NOTE | 2019-02-16 18:55 | NUR ---
Problems reprioritized. Patient report given, questions answered & plan of care reviewed with MARTI Yo.
[2019-02-16 20:00] VITALS: BP 103/62
[2019-02-16] MEDS: mirtazapine 15mg tablet PO SCH (20:42)
[2019-02-16] MEDS: Melatonin 3mg tablet PO SCH (20:45)
[2019-02-16] MEDS: polyethylene glycol 3350 17gm powd pack PO SCH (20:50)
--- NOTE | 2019-02-16 22:14 | NUR ---
patient refused dinner but requested peanut butter and jelly and chips. She ate the sandwich and some of the chips. She also ate a yogurt. Addendum: 02/16/19 at 2216 by Srinath Kim RN Amended: Links added.
[2019-02-17] VITALS: BP 88/55
[2019-02-17] MEDS: normal saline 1000ml 1,000 ML IV SCH ×2 (05:29→22:06)
--- NOTE | 2019-02-17 06:09 | NUR ---
Patient in room [facility] 356. I have received report from Srinath KIDD and had the opportunity to ask questions and assume patient care.
--- NOTE | 2019-02-17 06:57 | NUR ---
Problems reprioritized. Patient report given, questions answered & plan of care reviewed with MARTI Rios.
[2019-02-17 07:00] VITALS: BP 134/67
[2019-02-17] MEDS: sertraline 25mg tablet PO SCH (07:09)
[2019-02-17] MEDS: docusate sod 100mg capsule PO SCH ×2 (07:09→20:37)
[2019-02-17] MEDS: phenazopyridine 100mg tablet PO SCH ×3 (07:10→17:56)
[2019-02-17] MEDS: lactobacillus rhamnosus 10,000 MMU CELLS/CAPSULE PO SCH ×2 (07:10→20:37)
[2019-02-17] MEDS: buPROPion SR 100mg tab PO SCH ×2 (07:10→20:39)
[2019-02-17] MEDS: pregabalin 75mg capsule PO SCH ×2 (07:10→20:39)
[2019-02-17] MEDS: pantoprazole 40mg Tablet.DR PO SCH (07:10)
[2019-02-17] MEDS: multivitamins, therapeutics tablet PO SCH (07:10)
[2019-02-17] MEDS: enoxaparin 40mg/0.4ml syringe SUBCUT SCH (07:11)
[2019-02-17] MEDS: lactose-reduced food (Ensure Enlive) - 237ml bottle PO SCH ×4 (07:11→19:00)
[2019-02-17] MEDS: atenolol 25mg tablet PO SCH ×2 (07:11→20:38)
[2019-02-17] MEDS: risperiDONE 0.5mg tablet PO SCH ×2 (07:13→20:42)
[2019-02-17] MEDS: megestrol acetate 400mg/10ml UD oral suspension PO SCH (08:00)
[2019-02-17] MEDS: K and/or MAG REPLACEMENT MC SCH (08:00)
[2019-02-17 09:15] LABS: BASOPHILS % (AUTO) 0.6 % (0-1); EOSINOPHILS % (AUTO) 0.7 % (0-6); HEMATOCRIT 26.2 % (35.0-45.0); HEMOGLOBIN 9.2 g/dl (12.0-16.0); LYMPHOCYTES # (AUTO) 0.7 X10'3 (1.1-4.8); LYMPHOCYTES % (AUTO) 14.6 % (21-51); MEAN CORPUSCULAR HEMOGLOBIN 33.1 PG (27.0-31.0); MEAN CORPUSCULAR HGB CONC 35.1 g/dL (33.0-36.5); MEAN CORPUSCULAR VOLUME 94.4 FL (78-98); MEAN PLATELET VOLUME 6.7 FL (7.4-10.4); MONOCYTES # (AUTO) 0.3 X10'3 (0-0.9); MONOCYTES % (AUTO) 7.1 % (2-12); NEUTROPHILS # (AUTO) 3.8 X10'3 (1.8-7.7); PLATELET COUNT 207 X10'3 (140-440); RED BLOOD COUNT 2.78 X10'6 (4.20-5.60); RED CELL DISTRIBUTION WIDTH 14.9 % (11.5-14.5); WHITE BLOOD COUNT 4.9 X10'3 (4.5-11.0)
[2019-02-17 09:20] LABS: ALANINE AMINOTRANSFERASE 15 U/L (12-78); ALBUMIN 2.3 G/DL (3.4-5.0); ALBUMIN/GLOBULIN RATIO 0.8 (1.1-1.5); ALKALINE PHOSPHATASE 58 IU/L (46-116); ANION GAP 8 (8-16); ASPARTATE AMINO TRANSFERASE 11 U/L (10-37); BILIRUBIN,TOTAL 0.4 MG/DL (0.1-1.0); BLOOD UREA NITROGEN 14 MG/DL (7-18); CALCIUM 7.7 MG/DL (8.5-10.1); CHLORIDE 113 MMOL/L (99-107); CREATININE 0.56 MG/DL (0.40-0.90); GLUCOSE 134 MG/DL (70-104); POTASSIUM 3.6 MMOL/L (3.5-5.1); SODIUM 145 MMOL/L (135-145); TOTAL CARBON DIOXIDE 24.4 MMOL/L (24-32); TOTAL PROTEIN 5.3 G/DL (6.4-8.2); eGFR > 90 ML/MIN
[2019-02-17] MEDS ORDERED: iohexol 350MG/ML 100ml bottle IV ONE (09:51)
[2019-02-17 11:00] VITALS: BP 141/59
[2019-02-17] MEDS: levoFLOXACIN 500mg tablet PO SCH (11:42)
[2019-02-17] MEDS ORDERED: heparin 10,000 units/1 ML INJ IV ONE (13:20)
[2019-02-17] MEDS ORDERED: heparin 10,000 units/1 ML INJ IV PRN (13:20)
[2019-02-17 14:29] LABS: BASOPHILS % (AUTO) 0.7 % (0-1); EOSINOPHILS % (AUTO) 0.6 % (0-6); HEMATOCRIT 28.9 % (35.0-45.0); HEMOGLOBIN 9.9 g/dl (12.0-16.0); LYMPHOCYTES # (AUTO) 0.7 X10'3 (1.1-4.8); LYMPHOCYTES % (AUTO) 14.5 % (21-51); MEAN CORPUSCULAR HEMOGLOBIN 32.5 PG (27.0-31.0); MEAN CORPUSCULAR HGB CONC 34.3 g/dL (33.0-36.5); MEAN CORPUSCULAR VOLUME 94.7 FL (78-98); MEAN PLATELET VOLUME 6.8 FL (7.4-10.4); MONOCYTES # (AUTO) 0.4 X10'3 (0-0.9); MONOCYTES % (AUTO) 7.2 % (2-12); NEUTROPHILS # (AUTO) 3.9 X10'3 (1.8-7.7); PLATELET COUNT 217 X10'3 (140-440); RED BLOOD COUNT 3.05 X10'6 (4.20-5.60); RED CELL DISTRIBUTION WIDTH 14.6 % (11.5-14.5)
[2019-02-17 14:32] LABS: PARTIAL THROMBOPLASTIN TIME 27 SECONDS (22-32)
[2019-02-17 14:55] LABS: CLARITY,URINE SLIGHTLY CLOUDY (Clear); GLUCOSE, URINE NEGATIVE (Neg); KETONES,URINE NEGATIVE (Neg); LEUKOCYTE ESTERASE ,URINE NEGATIVE (Neg); OCCULT BLOOD,URINE MODERATE (Neg); PH,URINE 8.5 (4.8-8.0); PROTEIN,URINE TRACE mg/dl (Neg)
[2019-02-17 15:02] LABS: COLOR,URINE DARK YELLOW (Yellow); UA COLLECTION TYPE NON-SPECIFIED
[2019-02-17] MEDS: heparin 25,000 UNIT/250ml bag 250 ML IV SCH (15:02)
[2019-02-17 15:04] LABS: NITRITES, URINE NEGATIVE (Neg)
[2019-02-17 15:05] LABS: AMORPHOUS PHOSPHATES 2+; BACTERIA,URINE FEW /HPF (Neg); RBC,URINE 20-50 /HPF (0-2); SQUAMOUS EPITHELIAL CELL,UR FEW /LPF (FEW); WBC,URINE 0-4 /HPF (0-4)
[2019-02-17 15:06] LABS: COARSE GRANULAR CAST 0-3 /LPF (NEGATIVE)
--- NOTE | 2019-02-17 17:02 | NUR ---
PATIENT seen by Dr Recinos. Had CT see report. patients labs drawn and patient started on Heparin infusion. Repeat PTT 2116hrs. Famly present, only eating small amount of food and 25-50% of Ensure. patient encouraged to eat. Refused megace this am. will contnue to monitor. Sitter in room.
[2019-02-17 18:00] VITALS: BP 119/69
--- NOTE | 2019-02-17 18:42 | NUR ---
Problems reprioritized. Patient report given, questions answered & plan of care reviewed with Srinath KIDD.
--- NOTE | 2019-02-17 18:43 | NUR ---
Patient in room [facility] 356. I have received report from MARTI Rios and had the opportunity to ask questions and assume patient care.
--- NOTE | 2019-02-17 18:44 | NUR ---
Patient in room [facility] 356. I have received report from MARTI Rios and had the opportunity to ask questions and assume patient care.
[2019-02-17] MEDS: mirtazapine 15mg tablet PO SCH (20:39)
[2019-02-17] MEDS: Melatonin 3mg tablet PO SCH (20:40)
[2019-02-17] MEDS: polyethylene glycol 3350 17gm powd pack PO SCH (21:00)
[2019-02-18] VITALS: BP 97/60
[2019-02-18 03:43] LABS: BASOPHILS % (AUTO) 0.9 % (0-1); EOSINOPHILS # (AUTO) 0.1 X10'3 (0-0.9); EOSINOPHILS % (AUTO) 1.4 % (0-6); HEMOGLOBIN 10.3 g/dl (12.0-16.0); LYMPHOCYTES # (AUTO) 1.2 X10'3 (1.1-4.8); LYMPHOCYTES % (AUTO) 23.7 % (21-51); MEAN CORPUSCULAR HEMOGLOBIN 32.5 PG (27.0-31.0); MEAN CORPUSCULAR HGB CONC 34.5 g/dL (33.0-36.5); MEAN CORPUSCULAR VOLUME 94.2 FL (78-98); MEAN PLATELET VOLUME 6.7 FL (7.4-10.4); MONOCYTES # (AUTO) 0.5 X10'3 (0-0.9); MONOCYTES % (AUTO) 8.8 % (2-12); NEUTROPHILS # (AUTO) 3.4 X10'3 (1.8-7.7); NEUTROPHILS % (AUTO) 65.2 % (42-75); PLATELET COUNT 205 X10'3 (140-440); RED BLOOD COUNT 3.18 X10'6 (4.20-5.60); RED CELL DISTRIBUTION WIDTH 14.5 % (11.5-14.5); WHITE BLOOD COUNT 5.3 X10'3 (4.5-11.0)
--- NOTE | 2019-02-18 06:37 | NUR ---
Problems reprioritized. Patient report given, questions answered & plan of care reviewed with MARTI Ni.
[2019-02-18] MEDS: K and/or MAG REPLACEMENT MC SCH (06:47)
[2019-02-18 07:00] VITALS: BP 95/68
[2019-02-18] MEDS: pantoprazole 40mg Tablet.DR PO SCH (07:18)
[2019-02-18] MEDS: multivitamins, therapeutics tablet PO SCH (07:18)
[2019-02-18] MEDS: sertraline 25mg tablet PO SCH (07:18)
[2019-02-18] MEDS: lactobacillus rhamnosus 10,000 MMU CELLS/CAPSULE PO SCH ×2 (07:18→20:47)
[2019-02-18] MEDS: docusate sod 100mg capsule PO SCH ×2 (07:18→20:47)
[2019-02-18] MEDS: phenazopyridine 100mg tablet PO SCH ×3 (07:18→17:11)
[2019-02-18] MEDS: buPROPion SR 100mg tab PO SCH ×2 (07:19→20:47)
[2019-02-18] MEDS: pregabalin 75mg capsule PO SCH ×2 (07:19→20:47)
[2019-02-18] MEDS: risperiDONE 0.5mg tablet PO SCH (07:19)
[2019-02-18] MEDS: atenolol 25mg tablet PO SCH ×2 (07:19→20:47)
[2019-02-18] MEDS: normal saline 1000ml 1,000 ML IV SCH ×2 (07:27→20:50)
[2019-02-18 09:42] LABS: BASOPHILS % (AUTO) 0.8 % (0-1); EOSINOPHILS # (AUTO) 0.1 X10'3 (0-0.9); EOSINOPHILS % (AUTO) 1.7 % (0-6); HEMATOCRIT 28.6 % (35.0-45.0); LYMPHOCYTES # (AUTO) 1.1 X10'3 (1.1-4.8); LYMPHOCYTES % (AUTO) 22.7 % (21-51); MEAN CORPUSCULAR HEMOGLOBIN 32.8 PG (27.0-31.0); MEAN CORPUSCULAR VOLUME 93.6 FL (78-98); MEAN PLATELET VOLUME 6.8 FL (7.4-10.4); MONOCYTES # (AUTO) 0.4 X10'3 (0-0.9); MONOCYTES % (AUTO) 7.1 % (2-12); NEUTROPHILS # (AUTO) 3.4 X10'3 (1.8-7.7); NEUTROPHILS % (AUTO) 67.7 % (42-75); PLATELET COUNT 212 X10'3 (140-440); RED BLOOD COUNT 3.05 X10'6 (4.20-5.60); RED CELL DISTRIBUTION WIDTH 14.4 % (11.5-14.5)
[2019-02-18 09:55] LABS: ALANINE AMINOTRANSFERASE 15 U/L (12-78); ALBUMIN 2.3 G/DL (3.4-5.0); ALBUMIN/GLOBULIN RATIO 0.7 (1.1-1.5); ALKALINE PHOSPHATASE 47 IU/L (46-116); ANION GAP 9 (8-16); ASPARTATE AMINO TRANSFERASE 13 U/L (10-37); BILIRUBIN,TOTAL 0.6 MG/DL (0.1-1.0); BLOOD UREA NITROGEN 11 MG/DL (7-18); BUN/CREATININE RATIO 21.6 (6.6-38.0); CHLORIDE 112 MMOL/L (99-107); CREATININE 0.51 MG/DL (0.40-0.90); GLUCOSE 91 MG/DL (70-104); POTASSIUM 3.8 MMOL/L (3.5-5.1); SODIUM 144 MMOL/L (135-145); TOTAL CARBON DIOXIDE 23.5 MMOL/L (24-32); TOTAL PROTEIN 5.5 G/DL (6.4-8.2); eGFR > 90 ML/MIN
[2019-02-18] MEDS: levoFLOXACIN 500mg tablet PO SCH (10:53)
[2019-02-18 11:07] VITALS: BP 105/69
--- NOTE | 2019-02-18 13:12 | NUR ---
PAGER ID: [phone] MESSAGE: DENISE BROOKS. + DVT IN R POPLITEAL VEIN. SURGICAL ROMA [id number]
[2019-02-18] MEDS: lactose-reduced food (Ensure Enlive) - 237ml bottle PO SCH ×2 (13:13→18:00)
[2019-02-18] MEDS: heparin 25,000 UNIT/250ml bag 250 ML IV SCH ×2 (15:43→22:46)
[2019-02-18 16:48] VITALS: BP 123/84
--- NOTE | 2019-02-18 17:08 | NUR ---
PT REFUSING TO TAKE MOM. HAS NOT HAD A BM SINCE 02/13. WILL HAVE NOC SHIFT CONT TO ATTEMPT MOM ADMIN.
[2019-02-18] MEDS: LORazepam 0.5 MG tablet PO PRN (17:11)
--- NOTE | 2019-02-18 18:05 | NUR ---
Received report from uvaldo KIDD pt is awake on RA, eating dinner, sitter at bedside
--- NOTE | 2019-02-18 18:18 | NUR ---
Problems reprioritized. Patient report given, questions answered & plan of care reviewed with RAULITO KIDD.
[2019-02-18 19:00] VITALS: BP 110/70
[2019-02-18] MEDS: mirtazapine 15mg tablet PO SCH (20:47)
[2019-02-18] MEDS: Melatonin 3mg tablet PO SCH (20:47)
[2019-02-18] MEDS: polyethylene glycol 3350 17gm powd pack PO SCH (21:00)
[2019-02-19] VITALS: BP 95/55
[2019-02-19 01:05] LABS: BASOPHILS # (AUTO) 0.1 X10'3 (0-0.2); EOSINOPHILS # (AUTO) 0.1 X10'3 (0-0.9); EOSINOPHILS % (AUTO) 2.2 % (0-6); HEMOGLOBIN 9.5 g/dl (12.0-16.0); LYMPHOCYTES # (AUTO) 1.2 X10'3 (1.1-4.8); LYMPHOCYTES % (AUTO) 20.4 % (21-51); MEAN CORPUSCULAR HGB CONC 35.1 g/dL (33.0-36.5); MEAN PLATELET VOLUME 6.7 FL (7.4-10.4); MONOCYTES # (AUTO) 0.5 X10'3 (0-0.9); MONOCYTES % (AUTO) 8.5 % (2-12); NEUTROPHILS # (AUTO) 3.9 X10'3 (1.8-7.7); NEUTROPHILS % (AUTO) 67.9 % (42-75); PLATELET COUNT 195 X10'3 (140-440); RED BLOOD COUNT 2.88 X10'6 (4.20-5.60); RED CELL DISTRIBUTION WIDTH 15.1 % (11.5-14.5); WHITE BLOOD COUNT 5.7 X10'3 (4.5-11.0)
[2019-02-19 06:03] LABS: ALANINE AMINOTRANSFERASE 15 U/L (12-78); ALBUMIN 2.4 G/DL (3.4-5.0); ALBUMIN/GLOBULIN RATIO 0.7 (1.1-1.5); ALKALINE PHOSPHATASE 56 IU/L (46-116); ANION GAP 12 (8-16); ASPARTATE AMINO TRANSFERASE 14 U/L (10-37); BILIRUBIN,TOTAL 0.5 MG/DL (0.1-1.0); BLOOD UREA NITROGEN 14 MG/DL (7-18); BUN/CREATININE RATIO 26.9 (6.6-38.0); CHLORIDE 109 MMOL/L (99-107); CREATININE 0.52 MG/DL (0.40-0.90); GLUCOSE 112 MG/DL (70-104); POTASSIUM 3.7 MMOL/L (3.5-5.1); SODIUM 144 MMOL/L (135-145); TOTAL CARBON DIOXIDE 23.1 MMOL/L (24-32); TOTAL PROTEIN 5.7 G/DL (6.4-8.2); eGFR > 90 ML/MIN
--- NOTE | 2019-02-19 06:11 | NUR ---
gave report to Raine KIDD pt is awake sitter at bedside, watching tv on RA, in no apparent distress
[2019-02-19 06:22] LABS: BASOPHILS # (AUTO) 0.1 X10'3 (0-0.2); BASOPHILS % (AUTO) 0.9 % (0-1); EOSINOPHILS # (AUTO) 0.1 X10'3 (0-0.9); EOSINOPHILS % (AUTO) 2.2 % (0-6); HEMATOCRIT 30.5 % (35.0-45.0); HEMOGLOBIN 10.5 g/dl (12.0-16.0); LYMPHOCYTES # (AUTO) 1.2 X10'3 (1.1-4.8); LYMPHOCYTES % (AUTO) 21.4 % (21-51); MEAN CORPUSCULAR HEMOGLOBIN 32.7 PG (27.0-31.0); MEAN CORPUSCULAR HGB CONC 34.6 g/dL (33.0-36.5); MEAN CORPUSCULAR VOLUME 94.6 FL (78-98); MONOCYTES # (AUTO) 0.4 X10'3 (0-0.9); MONOCYTES % (AUTO) 7.8 % (2-12); NEUTROPHILS # (AUTO) 3.8 X10'3 (1.8-7.7); NEUTROPHILS % (AUTO) 67.7 % (42-75); PLATELET COUNT 219 X10'3 (140-440); RED BLOOD COUNT 3.22 X10'6 (4.20-5.60); WHITE BLOOD COUNT 5.6 X10'3 (4.5-11.0)
--- NOTE | 2019-02-19 06:44 | NUR ---
Patient in room [facility] 356. I have received report from geoffrey bass and had the opportunity to ask questions and assume patient care.
[2019-02-19] MEDS: K and/or MAG REPLACEMENT MC SCH (06:53)
[2019-02-19] MEDS: atenolol 25mg tablet PO SCH ×2 (08:00→20:44)
[2019-02-19] MEDS: magnesium hydroxide 30ml (MOM) UD suspension PO PRN (08:28)
[2019-02-19] MEDS: pregabalin 75mg capsule PO SCH ×2 (08:28→20:43)
[2019-02-19] MEDS: phenazopyridine 100mg tablet PO SCH ×3 (08:28→18:20)
[2019-02-19] MEDS: sertraline 25mg tablet PO SCH (08:28)
[2019-02-19] MEDS: lactobacillus rhamnosus 10,000 MMU CELLS/CAPSULE PO SCH ×2 (08:28→20:43)
[2019-02-19] MEDS: multivitamins, therapeutics tablet PO SCH (08:28)
[2019-02-19] MEDS: buPROPion SR 100mg tab PO SCH ×2 (08:28→20:44)
[2019-02-19] MEDS: pantoprazole 40mg Tablet.DR PO SCH (08:28)
[2019-02-19] MEDS: docusate sod 100mg capsule PO SCH ×2 (08:28→20:43)
[2019-02-19] MEDS: lactose-reduced food (Ensure Enlive) - 237ml bottle PO SCH ×3 (08:34→18:16)
[2019-02-19 08:44] VITALS: BP 99/61
[2019-02-19 11:00] VITALS: BP 118/63
[2019-02-19] MEDS: apixaban 5mg tablet PO SCH ×2 (12:41→20:43)
--- NOTE | 2019-02-19 13:49 | NUR ---
Reassessment: Noted that patient is receiving soap ramiro enema d/t constipation, last documented bowel movement 6 days ago on 02/13; she was receiving colace BID since admission, received milk of magnesia 02/13, 02/15, 02/19; was refusing miralax. Has refused the ensure enlive for past two meals, prior was drinking 25-49% of the ONS. Pt PO 25-49% avg meals mostly 25% not meeting needs. Per RN note on 02/16 patient had refused dinner however ate peanut butter and jelly sandwich, chips, and yogurt. Continues on megace and remeron. Per MD note; pt tired and wants to rest and still has SI. LBM 02/13. Weight increased by 2 kg since admission even with negative 2.2 liter fluid balance. Will continue to monitor. Recommendation: 1. Continue regular diet; encourage PO 2. Continue Ensure Enlive TIDWM 3. Appetite stimulants per MD 4. routine bowel care 5. Daily weights Addendum: 02/19/19 at [address] Amended: Links added.
--- NOTE | 2019-02-19 15:00 | NUR ---
SOAP SUDS ENEMA ADMINISTERED: PT TOLERATED WELL. NO OUTPUT AT THIS TIME.
--- NOTE | 2019-02-19 18:15 | NUR ---
Received report from Raine KIDD pt is feeling slightly anxious stating her stomach is bothering her,
--- NOTE | 2019-02-19 18:17 | NUR ---
Problems reprioritized. Patient report given, questions answered & plan of care reviewed with RAULITO KIDD.
[2019-02-19] MEDS: LORazepam 0.5 MG tablet PO PRN (18:20)
[2019-02-19 19:00] VITALS: BP 109/67
[2019-02-19] MEDS: mirtazapine 15mg tablet PO SCH (20:43)
[2019-02-19] MEDS: Melatonin 3mg tablet PO SCH (20:44)
[2019-02-19] MEDS: polyethylene glycol 3350 17gm powd pack PO SCH (21:00)
[2019-02-20] VITALS: BP 98/61
[2019-02-20 06:08] LABS: BASOPHILS % (AUTO) 0.9 % (0-1); EOSINOPHILS # (AUTO) 0.2 X10'3 (0-0.9); EOSINOPHILS % (AUTO) 2.8 % (0-6); HEMATOCRIT 28.3 % (35.0-45.0); HEMOGLOBIN 9.8 g/dl (12.0-16.0); LYMPHOCYTES # (AUTO) 1.2 X10'3 (1.1-4.8); LYMPHOCYTES % (AUTO) 20.7 % (21-51); MEAN CORPUSCULAR HEMOGLOBIN 32.9 PG (27.0-31.0); MEAN CORPUSCULAR HGB CONC 34.6 g/dL (33.0-36.5); MEAN PLATELET VOLUME 7.1 FL (7.4-10.4); MONOCYTES # (AUTO) 0.5 X10'3 (0-0.9); MONOCYTES % (AUTO) 9.6 % (2-12); NEUTROPHILS # (AUTO) 3.8 X10'3 (1.8-7.7); PLATELET COUNT 224 X10'3 (140-440); RED BLOOD COUNT 2.98 X10'6 (4.20-5.60); RED CELL DISTRIBUTION WIDTH 15.1 % (11.5-14.5); WHITE BLOOD COUNT 5.7 X10'3 (4.5-11.0)
--- NOTE | 2019-02-20 06:30 | NUR ---
Patient in room [facility] 356. I have received report from Lupe KIDD and had the opportunity to ask questions and assume patient care.
--- NOTE | 2019-02-20 06:40 | NUR ---
Gave report to Eugene leon is tending to pts needs
[2019-02-20 08:00] VITALS: BP 107/74
[2019-02-20] MEDS: K and/or MAG REPLACEMENT MC SCH (08:00)
[2019-02-20] MEDS: lactose-reduced food (Ensure Enlive) - 237ml bottle PO SCH ×3 (08:00→18:04)
[2019-02-20] MEDS: docusate sod 100mg capsule PO SCH ×2 (08:57→19:16)
[2019-02-20] MEDS: pregabalin 75mg capsule PO SCH ×2 (08:57→19:16)
[2019-02-20] MEDS: pantoprazole 40mg Tablet.DR PO SCH (08:57)
[2019-02-20] MEDS: phenazopyridine 100mg tablet PO SCH ×3 (08:57→18:00)
[2019-02-20] MEDS: lactobacillus rhamnosus 10,000 MMU CELLS/CAPSULE PO SCH ×2 (08:57→19:16)
[2019-02-20] MEDS: apixaban 5mg tablet PO SCH ×2 (08:58→19:16)
[2019-02-20] MEDS: multivitamins, therapeutics tablet PO SCH (08:58)
[2019-02-20] MEDS: sertraline 25mg tablet PO SCH (08:59)
[2019-02-20] MEDS: atenolol 25mg tablet PO SCH ×2 (08:59→19:16)
[2019-02-20] MEDS: buPROPion SR 100mg tab PO SCH ×2 (08:59→19:16)
[2019-02-20 11:54] VITALS: BP 125/71
--- NOTE | 2019-02-20 14:45 | NUR ---
Patient tolerated well. No issues Addendum: 02/20/19 at 1445 by Aurora Jones RN Amended: Links added.
--- NOTE | 2019-02-20 15:59 | NUR ---
Reassessment: Pt wt down 2kg but also -4L fluid balance past 3 days. Constipation still noted LBM 02/13 on routine colace w/ MoM PRN 02/19 and refused miralax today. PO 50-75% main starches and proteins w/ 25% avg milks; overall meeting needs given low wt but still lower PO more recently likely r/t constipation. Per RN; pt s/p enema last night still no BM but pt can see stool just not able to evacuate. [email or web address] MD regarding more aggressive bowel care measures per MD approval. Pt megace d/c r/t clotting risk w/ new bilateral pulmonary emboli and marinol d/c r/t psychiatric contraindication per MD during RD discussion 02/18. Will continue to monitor. Recommendation: 1. Continue regular diet; encourage PO 2. Continue Ensure Enlive TIDWM 3. routine bowel care; 7d constipation; consider more aggressive measures per MD approval 4. Daily weights Addendum: 02/20/19 at [address] Amended: Links added.
[2019-02-20 18:00] VITALS: BP 126/92
--- NOTE | 2019-02-20 18:37 | NUR ---
Patient in room [facility] 356. I have received report from MARTI Knight and had the opportunity to ask questions and assume patient care.
--- NOTE | 2019-02-20 18:41 | NUR ---
Problems reprioritized. Patient report given, questions answered & plan of care reviewed with FIDELIA KIDD.
[2019-02-20] MEDS ORDERED: mineral oil 133ml enema RC SCH (18:50)
[2019-02-20] MEDS: Melatonin 3mg tablet PO SCH (21:53)
[2019-02-20] MEDS: mirtazapine 15mg tablet PO SCH (21:53)
[2019-02-20] MEDS: polyethylene glycol 3350 17gm powd pack PO SCH (22:10)
[2019-02-21 00:07] VITALS: BP 101/66
--- NOTE | 2019-02-21 00:54 | NUR ---
Bladder scan performed, 546 mL, post void residual. Pt was not able to urinate. Pt states that she is not currently having any abdominal discomfort. Educated pt importance of urinating due current bladder scan amt and s/p benavides DC. Pt agreed. Will continue to monitor.
--- NOTE | 2019-02-21 03:40 | NUR ---
Bladder scan performed, 569 mL, post void residual. Pt was unable to urinate. Reeducate pt importance of utilizing restroom to help her void and pt agreed. Informed pt that if she does not void, further action may be needed. Pt states that she is "too tired" and wants to sleep, but will continue to use restroom. Will continue to monitor.
[2019-02-21 04:33] LABS: BASOPHILS % (AUTO) 0.7 % (0-1); EOSINOPHILS # (AUTO) 0.2 X10'3 (0-0.9); EOSINOPHILS % (AUTO) 3.2 % (0-6); HEMATOCRIT 28.3 % (35.0-45.0); HEMOGLOBIN 9.8 g/dl (12.0-16.0); LYMPHOCYTES # (AUTO) 1.1 X10'3 (1.1-4.8); LYMPHOCYTES % (AUTO) 20.3 % (21-51); MEAN CORPUSCULAR HEMOGLOBIN 32.9 PG (27.0-31.0); MEAN CORPUSCULAR HGB CONC 34.5 g/dL (33.0-36.5); MEAN CORPUSCULAR VOLUME 95.3 FL (78-98); MEAN PLATELET VOLUME 6.8 FL (7.4-10.4); MONOCYTES # (AUTO) 0.5 X10'3 (0-0.9); MONOCYTES % (AUTO) 8.8 % (2-12); NEUTROPHILS # (AUTO) 3.8 X10'3 (1.8-7.7); PLATELET COUNT 220 X10'3 (140-440); RED BLOOD COUNT 2.98 X10'6 (4.20-5.60); RED CELL DISTRIBUTION WIDTH 15.2 % (11.5-14.5); WHITE BLOOD COUNT 5.6 X10'3 (4.5-11.0)
--- NOTE | 2019-02-21 05:45 | NUR ---
Bladder scan performed, 538 mL. Informed pt to use restroom at this point. Pt went to restroom but was unable to void. Reeducated pt importance of utilizing restroom or BSC to help her void. At this time, pt wants to keep on trying to void as she does not further actions. Will continue to monitor.
--- NOTE | 2019-02-21 06:44 | NUR ---
Patient in room [facility] 356. I have received report from Catherine KIDD and had the opportunity to ask questions and assume patient care.
--- NOTE | 2019-02-21 06:48 | NUR ---
Problems reprioritized. Patient report given, questions answered & plan of care reviewed with MARTI Knight.
[2019-02-21 07:22] VITALS: BP 97/60
[2019-02-21] MEDS: K and/or MAG REPLACEMENT MC SCH (08:00)
[2019-02-21] MEDS: atenolol 25mg tablet PO SCH ×2 (08:00→19:24)
[2019-02-21] MEDS: pregabalin 75mg capsule PO SCH ×2 (08:10→19:23)
[2019-02-21] MEDS: pantoprazole 40mg Tablet.DR PO SCH (08:10)
[2019-02-21] MEDS: sertraline 25mg tablet PO SCH (08:11)
[2019-02-21] MEDS: phenazopyridine 100mg tablet PO SCH ×3 (08:11→18:00)
[2019-02-21] MEDS: docusate sod 100mg capsule PO SCH ×2 (08:11→19:23)
[2019-02-21] MEDS: multivitamins, therapeutics tablet PO SCH (08:11)
[2019-02-21] MEDS: apixaban 5mg tablet PO SCH ×2 (08:11→19:23)
[2019-02-21] MEDS: lactobacillus rhamnosus 10,000 MMU CELLS/CAPSULE PO SCH ×2 (08:11→19:23)
[2019-02-21] MEDS: lactose-reduced food (Ensure Enlive) - 237ml bottle PO SCH ×3 (08:11→18:01)
[2019-02-21] MEDS: buPROPion SR 100mg tab PO SCH ×2 (08:11→19:23)
[2019-02-21] MEDS ORDERED: APIX5TAB3 PO (11:39)
[2019-02-21] MEDS ORDERED: ATEN-168 PO (11:39)
[2019-02-21 12:14] VITALS: BP 103/64
--- NOTE | 2019-02-21 16:43 | NUR ---
Missed hat, unable to calculate amount. Addendum: 02/21/19 at 1643 by Konstantin Vale RN Amended: Links added.
[2019-02-21 18:15] VITALS: BP 111/60
--- NOTE | 2019-02-21 18:25 | NUR ---
Patient in room [facility] 356. I have received report from MARTI Knight and had the opportunity to ask questions and assume patient care.
--- NOTE | 2019-02-21 18:27 | NUR ---
Problems reprioritized. Patient report given, questions answered & plan of care reviewed with Catherine KIDD.
[2019-02-21] MEDS: polyethylene glycol 3350 17gm powd pack PO SCH (21:00)
[2019-02-21] MEDS: Melatonin 3mg tablet PO SCH (21:14)
[2019-02-21] MEDS: mirtazapine 15mg tablet PO SCH (21:14)
[2019-02-21] MEDS: acetaminophen 325mg tablet PO PRN (21:53)
[2019-02-22] VITALS: BP 81/49
[2019-02-22 05:39] LABS: BASOPHILS # (AUTO) 0.1 X10'3 (0-0.2); BASOPHILS % (AUTO) 0.8 % (0-1); EOSINOPHILS # (AUTO) 0.2 X10'3 (0-0.9); EOSINOPHILS % (AUTO) 2.9 % (0-6); HEMATOCRIT 29.2 % (35.0-45.0); HEMOGLOBIN 10.2 g/dl (12.0-16.0); LYMPHOCYTES # (AUTO) 1.2 X10'3 (1.1-4.8); LYMPHOCYTES % (AUTO) 18.7 % (21-51); MEAN CORPUSCULAR HEMOGLOBIN 33.3 PG (27.0-31.0); MEAN CORPUSCULAR HGB CONC 34.9 g/dL (33.0-36.5); MEAN CORPUSCULAR VOLUME 95.6 FL (78-98); MEAN PLATELET VOLUME 7.3 FL (7.4-10.4); MONOCYTES # (AUTO) 0.5 X10'3 (0-0.9); MONOCYTES % (AUTO) 7.2 % (2-12); NEUTROPHILS # (AUTO) 4.5 X10'3 (1.8-7.7); NEUTROPHILS % (AUTO) 70.4 % (42-75); PLATELET COUNT 250 X10'3 (140-440); RED BLOOD COUNT 3.06 X10'6 (4.20-5.60); RED CELL DISTRIBUTION WIDTH 15.6 % (11.5-14.5); WHITE BLOOD COUNT 6.4 X10'3 (4.5-11.0)
--- NOTE | 2019-02-22 06:05 | NUR ---
Pt with very minimal output during shift. Bladder scan performed, 851 mL. Educated pt importance of using toilet to void. Pt agreed.
--- NOTE | 2019-02-22 06:32 | NUR ---
Patient in room [facility] 356. I have received report from Catherine KIDD and had the opportunity to ask questions and assume patient care.
--- NOTE | 2019-02-22 06:50 | NUR ---
Problems reprioritized. Patient report given, questions answered & plan of care reviewed with MARTI Calero.
[2019-02-22 07:00] VITALS: BP 96/58
[2019-02-22] MEDS: lactose-reduced food (Ensure Enlive) - 237ml bottle PO SCH ×2 (08:00→13:00)
[2019-02-22] MEDS: atenolol 25mg tablet PO SCH (08:00)
[2019-02-22] MEDS: K and/or MAG REPLACEMENT MC SCH (08:00)
--- NOTE | 2019-02-22 08:23 | NUR ---
Patient tried to pee per sitter's but unsuccessful. Bladder scan shows 999ml per sitter's report. Paged Dr. Julian regarding this issue to get order for straight catheter
[2019-02-22] MEDS: pantoprazole 40mg Tablet.DR PO SCH (09:39)
[2019-02-22] MEDS: docusate sod 100mg capsule PO SCH (09:39)
[2019-02-22] MEDS: phenazopyridine 100mg tablet PO SCH ×2 (09:40→14:09)
[2019-02-22] MEDS: lactobacillus rhamnosus 10,000 MMU CELLS/CAPSULE PO SCH (09:40)
[2019-02-22] MEDS: LORazepam 0.5 MG tablet PO PRN (09:40)
[2019-02-22] MEDS: pregabalin 75mg capsule PO SCH (09:40)
[2019-02-22] MEDS: apixaban 5mg tablet PO SCH (09:40)
[2019-02-22] MEDS: sertraline 25mg tablet PO SCH (09:40)
[2019-02-22] MEDS: multivitamins, therapeutics tablet PO SCH (09:41)
[2019-02-22] MEDS: buPROPion SR 100mg tab PO SCH (09:41)
--- NOTE | 2019-02-22 10:25 | NUR ---
pt attempted to void normally with no success. Performed straight cath after previous bladder scan showed pt retaining nearly 1000 mL, pt tolerated well. 1000mL retrieved from bladder via straight cath. Bladder scan after cath showed 49mL of urine in bladder.
[2019-02-22 11:00] VITALS: BP 94/53
--- NOTE | 2019-02-22 13:55 | NUR ---
PA from Behavioral Health came by to see the patient, according to her patient is good to go to [facility] today
--- NOTE | 2019-02-22 14:27 | NUR ---
Discharge instructions given to patient. Patient verbalized understanding of all instructions made. Peripheral IV catheter removed, tip intact. Instructed patient to ensure she has all her belongings with before leaving. Awaiting for a staff from [facility] to berry picker the patient from her room. Sitter at bedside
[2019-02-22] MEDS ORDERED: MEGE40TA27 PO (16:47)
[2019-02-22] MEDS ORDERED: BUPR200T2 PO (16:47)
[2019-02-22] MEDS ORDERED: SERT100T PO (16:47)
[2019-02-22] MEDS ORDERED: APIX5TAB3 PO (17:05)
[2019-02-22] MEDS ORDERED: LYR75C PO (17:05)
[2019-02-22] MEDS ORDERED: ATEN-169 PO (17:05)
== END 2019-02-22 15:30 | DRG 176 ==
LOC: SUR 3N 16:46
PROVIDERS: ADMIT Family Medicine; ATTEND Family Medicine
PROC: BW251ZZ Computerized Tomography (CT Scan) of Chest, Abdomen and Pelvis using Low Osmolar Contrast (ICD-10-PCS; principal; 2019-02-09)
DX: I26.99 Other pulmonary embolism without acute cor pulmonale (principal); N39.0 Urinary tract infection, site not specified; R45.851 Suicidal ideations; E46 Unspecified protein-calorie malnutrition; Z68.1 Body mass index [BMI] 19.9 or less, adult; F32.3 Major depressive disorder, single episode, severe with psychotic features; D64.9 Anemia, unspecified; I95.9 Hypotension, unspecified; N32.0 Bladder-neck obstruction; E87.6 Hypokalemia; R62.7 Adult failure to thrive; R00.0 Tachycardia, unspecified; R63.0 Anorexia; M79.7 Fibromyalgia; Z82.49 Family history of ischemic heart disease and other diseases of the circulatory system
CPT/HCPCS: 36415; 71260; 71275; 74177; 76856; 80048; 80053; 81001; 83735; 84100; 85025; 85027; 85610; 85730; 87081; 93005; 93970; 97112; 97116; 97161; 97530; G0378; J1644; J1650; J1956; J2060; J3480; J7030; J7120; Q0167; Q9963; Q9967

== ENCOUNTER 2019-02-22 13:51 | Inpatient (IN) | payer BC ==
[~2019-02-22] VITALS: Ht 170.2 cm; Wt 47.1 kg
[~2019-02-22 13:51] MED LIST changes: +APIX5TAB3 PO; +ATEN-168 PO; +BUPR150T8 PO; -FLUO20CA39 PO; -GABA-532 PO; +LACT-237 PO; +MIRT15TA PO; +OLAN2.5T28 PO; -OLAN5TAB5 PO
[2019-02-22 15:45] VITALS: BP 93/62
[2019-02-22] MEDS ORDERED: loperamide 2mg capsule PO PRN (15:45)
[2019-02-22] MEDS ORDERED: acetaminophen 325mg tablet PO PRN (15:45)
[2019-02-22] MEDS ORDERED: mag hydrox/Alum hydrox/simeth 30ml oral suspension PO PRN (15:45)
[2019-02-22] MEDS ORDERED: SERT100T PO (16:47)
[2019-02-22] MEDS ORDERED: BUPR200T2 PO (16:47)
[2019-02-22] MEDS ORDERED: MEGE40TA27 PO (16:47)
[2019-02-22] MEDS ORDERED: LYR75C PO (17:05)
[2019-02-22] MEDS ORDERED: APIX5TAB3 PO (17:05)
[2019-02-22] MEDS ORDERED: ATEN-169 PO (17:05)
[2019-02-22] MEDS ORDERED: FLU VACC QS2019-20 36MOS UP/PF 60 MCG/0.5 ML SYRINGE IMVAC ONE (17:20)
--- NOTE | 2019-02-22 17:51 | NUR ---
Nursing Admit Note Patient is a 48yo white female of very thin build. She is admitted from the med surg department to the unit voluntarily. She is brought over on a 1 to 1, RN states patient was confused and agitated, called 911 and pulled out her benavides. Patient states that she will participate in groups and work towards her own wellness. Report received from [facility] person Nicolasa that patient has improved since admit to their unit with decrease in confusion. Today patient was straight cathed with 1liter of clear, yellow, urine evacuated. Patient is consuming 50-75% of her meals. Patient is drinking ensure and reports that [place] is her favorite. Patient likes to take her medication in yogurt or apple sauce.
[2019-02-22] MEDS: lactose-reduced food (Ensure Enlive) - 237ml bottle PO SCH (18:00)
--- NOTE | 2019-02-22 18:11 | NUR ---
Patient states that she feels like she needs to have a BM but cannot. Last BM 02/19. Patient requests an enema.
[2019-02-22] MEDS: magnesium hydroxide 30ml (MOM) UD suspension PO PRN (19:06)
[2019-02-22 19:33] VITALS: BP 93/66
[2019-02-22] MEDS: atenolol 25mg tablet PO SCH (20:00)
[2019-02-22] MEDS: buPROPion SR 100mg tab PO SCH (20:38)
[2019-02-22] MEDS: pregabalin 75mg capsule PO SCH (20:38)
[2019-02-22] MEDS: apixaban 5mg tablet PO SCH (20:38)
[2019-02-22] MEDS: acetaminophen 325mg tablet PO SCH (20:39)
[2019-02-22] MEDS: megestrol acetate 400mg/10ml UD oral suspension PO SCH (20:39)
[2019-02-22] MEDS: mirtazapine 15mg tablet PO SCH (20:39)
--- NOTE | 2019-02-22 23:08 | NUR ---
Nursing Progress Note: Legal hold: Voluntary Client on voluntary admit Report received from nurse, Leonor KIDD, with use of [facility] Why are they here: The patient was re-admitted after medically stabilized on the medical unit. She was treated on the medical unit for bilateral pulmonary embolism, UTI, Urinary Retention. The patient has a history of a learning disability and was living at home with her family. She was ordinally brought to the ER by her family because she stopped eating at home and had significant weight loss. She was admitted to [facility] from the ER for being a danger to herself and was planning to kill herself by not eating. Once on the unit she developed tachycardia and was sent to the medical floor. She is now back at [facility] for further psychiatric stabilization/evaluation and has signed in voluntarily. Assessment What has happened this shift: The patient was up and sitting on her bed and was reading her bible. She appeared calm and she was friendly on approach. She was cooperative with the evening assessment but answered most of the assessment questions with "good" and "pretty good" When asked if she was having any problems with anxiety she replied, "The only problem is my fibromyalgia." She is aware that she has the PEs and she understands that staff are keeping track of her intake and output and she has been cooperative with that. She requested and received PRN MOM. She did not appears to be responding to internal stimuli and psychotic symptoms were denied. She had a visit with her family and that seemed to have gone well. S/I, H/I: the patient denies A/VH: Denied Sleep: ADL's: requires supervision Group attendance: Were meds taken: The patient has been treatment and medication compliant Any med S/E none reported or observed. Mental Status Exam Appearance: Appears stated age. Dressed appropriately for the unit Eye contact: WNL Behavior: Cooperative, withdrawn from peers Speech: moderate rate, spontaneous. Mood: "pretty good", and denies anxiety Affect: Appropriate to circumstances. Thought process: Gave logical and linear responses to questions but replies were very general and minimal. Thought Content: Unable to assess fully. The patient gave vague replies to the assessment questions and reported everything as "pretty good" and "good" Cognition: Alert and oriented Insight: Impaired Judgment: Impaired. Interventions PRN's used: MOM Therapeutic interventions: One to one with the patient to assess severity of depressive symptoms and self harm risk. She was educated to her ordered medications. She remains on line of sight with staff. She is on I & Os Restraints/seclusion/emergency medication: NA Justification of Continued Inpatient Treatment: The patient was re-admitted to the unit after being medically stabilized to be fully evaluated to ensure that she is psychiatrically stable to be discharged to her home and to arrange follow up.
[2019-02-23] MEDS: acetaminophen 325mg tablet PO SCH ×6 (04:00→21:04)
[2019-02-23 07:13] LABS: CHOL/HDL RATIO 3.1 (0.00-4.99); CHOLESTEROL 118 MG/DL (0-200); HDL CHOLESTEROL 38 MG/DL (35-60); LDL CHOLESTEROL 81 MG/DL (50-100); TRIGLYCERIDES 48 MG/DL (20-135)
[2019-02-23 08:00] VITALS: BP 96/64
[2019-02-23] MEDS: apixaban 5mg tablet PO SCH ×2 (08:35→21:03)
[2019-02-23] MEDS: buPROPion SR 100mg tab PO SCH ×2 (08:35→21:04)
[2019-02-23] MEDS: pregabalin 75mg capsule PO SCH ×2 (08:35→21:03)
[2019-02-23] MEDS: sertraline 50mg tablet PO SCH (08:35)
[2019-02-23] MEDS: pantoprazole 40mg Tablet.DR PO SCH (08:37)
[2019-02-23] MEDS: atenolol 25mg tablet PO SCH ×2 (08:37→20:00)
[2019-02-23] MEDS: lactose-reduced food (Ensure Enlive) - 237ml bottle PO SCH ×4 (08:37→19:03)
[2019-02-23] MEDS: megestrol acetate 400mg/10ml UD oral suspension PO SCH ×2 (08:37→21:03)
[2019-02-23] MEDS ORDERED: magnesium citrate 296ml oral solution PO ONE (09:30)
[2019-02-23] MEDS: hydrOXYzine 25 MG tablet PO PRN ×2 (14:40→21:17)
--- NOTE | 2019-02-23 15:08 | NUR ---
Met with Ct to complete Psychosocial Assessment. Ct was cooperative, however, became frustrated and did not like all the questions. When asked if she still wanted to she stated, "I haven't figured that out yet...I don't know...I don't know what's going on". Ct appears to have very little insight into her current state. She did acknowledge that she needs to gain weight. Janitor And Cleaner is concerned about Ct returning to her parents house and their ability to care for her. [facility] referral may be helpful. IFEANYI Ortega Addendum: 02/23/19 at 1510 by Bertha ENRIQUEZ Amended: Links added.
[2019-02-23] MEDS: LORazepam 1 MG tablet PO PRN (16:12)
--- NOTE | 2019-02-23 17:32 | NUR ---
Reassessment: Pt last scaled wt from 02/22 at 45.2kg. Pt has poor PO intake at 0-25% for the past two meals, ONS consumption 50% and 100%, pt is not meeting nutrient needs. LB 02/19, continue routine bowel care. Will continue to monitor PO intake and ONS acceptance. Rec: 1. Continue regular diet 2. Ensure Enlive with all meals 3. Encourage PO Intake 4. bowel care as needed 5. weight per rx Addendum: 02/23/19 at [address] RD agree with director internal audit note Addendum: 02/23/19 at 1733 by Wing Kristian ALCALA Amended: Links added.
[2019-02-23] MEDS: lithium carbonate 150mg capsule PO SCH (18:04)
[2019-02-23 20:00] VITALS: BP 94/60
[2019-02-23 21:00] VITALS: BP 92/60
--- NOTE | 2019-02-23 21:00 | NUR ---
Nursing Note: Notified Dr. Willis of pt. decreased BP at HS, received orders to hold scheduled Atenolol. Will continue to monitor.
[2019-02-23] MEDS: pregabalin 25mg capsule PO SCH (21:03)
[2019-02-23] MEDS: docusate sod 250mg capsule PO SCH (21:05)
[2019-02-23] MEDS: mirtazapine 15mg tablet PO SCH (21:05)
--- NOTE | 2019-02-24 01:20 | NUR ---
Nursing Progress Note: Legal hold: Voluntary Client on voluntary DTS Report received from nurse with use of SBAR: MARTI Galvez Why are they here: The patient was re-admitted after medically stabilized on the medical unit. She was treated on the medical unit for bilateral pulmonary embolism, UTI, Urinary Retention. The patient has a history of a learning disability and was living at home with her family. She was ordinally brought to the ER by her family because she stopped eating at home and had significant weight loss. She was admitted to [facility] from the ER for being a danger to herself and was planning to kill herself by not eating. Once on the unit she developed tachycardia and was sent to the medical floor. She is now back at [facility] for further psychiatric stabilization/evaluation and has signed in voluntarily. Assessment What has happened this shift: Pt. sitting in the chair by her bed reading the bible at the beginning of the shift. This telegraphic typewriter operator introduces self and establishes rapport, pt. presents as cooperative, anxious, isolative, and guarded. Her parents come in for a visit, and visit takes place in the Group Room, afterwards pt. returns immediately back to her room and continues to isolate here. She requests an enema, however bowl sounds are active and WNL X4 quadrants, and pt. reports she is passing flatus. Prune juice administered, along with new scheduled dose of Colace, will endorse to AM shift and continue to monitor. Pt. continues on I&Os, however she is non-compliant with voiding in the hat placed in the toilet per report that she is afraid to sit on it. Instead, pt. notifies staff when she voids. 1:1 completed at bedside, she currently denies S/I, however continues to be preoccupied with thoughts of . Pt. states, "I'm afraid of the different sounds in my body, the gurgles and the constipation. I'm afraid I won't wake up in the morning, but it's God's will." This telegraphic typewriter operator questions pt. regarding anxiety, and she admits that she is very anxious about most things. She states, "I'm afraid to leave my room, and I'm afraid that I will miss meals." Pt. was able to eat 75% of her dinner this shift, consume her ordered Ensure, and HS snack. PRN anxiolytic administered with effectiveness, will continue to monitor. Pt. requests a bed bath at , and was given one by this telegraphic typewriter operator. However, pt. refuses to wash her hair at this time because she does not want to go to bed with it wet. During the bed bath, pt. lays flat on her bed and states, "This is how the body is prepared when you , the soul is cleansed." S/I, H/I: Passive S/I, she currently denies S/I, however continues to be preoccupied with thoughts of . Pt. states, "I'm afraid of the different sounds in my body, the gurgles and the constipation. I'm afraid I won't wake up in the morning, but it's God's will." A/VH: Possible A/HDZ, pt. states, "I hear voices in my head, but it's just me talking to myself. Don't you do that?" Sleep: Pt. appears to be resting comfortably ADL's: Pt's gait remains weak and she ambulates with the use of a FWW with effectiveness. Fall precautions remain in place Group attendance: Pt. reports that she attends groups and enjoys them Were meds taken: Yes, however held ordered Atenolol r/t decreased BP (see previous note) Any med S/E: None Mental Status Exam Appearance: Frail, looks older than stated age. Appropriately dressed, however hair appears unwashed and disheveled. Eye contact: Fair Behavior: Cooperative, anxious, isolative, and guarded. Speech: Soft, pressured at times and difficult to understand Mood: Guarded Affect: Constricted Thought process: Circumstantial, however pt. is able to be re-directed Thought Content: Preoccupation with and dying Cognition: A& O X3 (not to place) Insight: Poor Judgment: Poor to fair Interventions PRN's used: Atrax Therapeutic interventions: Introduced self and established rapport, maintained a safe and therapeutic environment, ensured contract for safety, monitored I&Os, encouraged independent performance of ADLs and maintained fall precautions, monitored behaviors and need for intervention, provided clear and simple directions, and maintained Q 15 min safety checks. Restraints/seclusion/emergency medication: N/A Justification of Continued Inpatient Treatment: Pt. continues to be passively suicidal and require help performing ADLs. She requires medication adjustments and a safe and therapeutic environment.
[2019-02-24] MEDS: acetaminophen 325mg tablet PO SCH ×3 (04:00→08:37)
[2019-02-24 08:20] VITALS: BP 95/66
[2019-02-24] MEDS: pregabalin 75mg capsule PO SCH ×2 (08:36→20:49)
[2019-02-24] MEDS: buPROPion SR 100mg tab PO SCH ×2 (08:37→20:49)
[2019-02-24] MEDS: pregabalin 25mg capsule PO SCH ×2 (08:38→20:49)
[2019-02-24] MEDS: pantoprazole 40mg Tablet.DR PO SCH (08:38)
[2019-02-24] MEDS: sertraline 50mg tablet PO SCH (08:38)
[2019-02-24] MEDS: apixaban 5mg tablet PO SCH ×2 (08:39→20:49)
[2019-02-24] MEDS: lactose-reduced food (Ensure Enlive) - 237ml bottle PO SCH ×3 (08:42→18:02)
[2019-02-24] MEDS: megestrol acetate 400mg/10ml UD oral suspension PO SCH ×2 (08:45→20:50)
[2019-02-24] MEDS: atenolol 25mg tablet PO SCH ×2 (08:45→20:49)
[2019-02-24] MEDS: lithium carbonate 150mg capsule PO SCH ×2 (08:46→17:52)
[2019-02-24] MEDS: magnesium hydroxide 30ml (MOM) UD suspension PO PRN (11:27)
--- NOTE | 2019-02-24 14:16 | NUR ---
1:[address] Spoke [address] Ct about follow up care and she reported she has a Dr is [place] but cannot recall her name. Asked her if she would be interested in intensive out-patient tx at [facility] and explained what that would look like. She stated, "why would I need to talk to someone". Had a conversation with Ct about why she is here and she stated she is here to "gain weight". Talked about her recent stressors (parents health issues, issues with daughter, dogs ) and she stated, "I just want to move on". She did not show much emotion when underwriter was asking more about her dog and it's . Through the conversation she admitted to hearing her sister in law's voice at times when she is not present. She denied any other auditory hallucinations. Ct reported she went to the 2 pm group yesterday for a little bit and then left. She stated she was too anxious and had to leave and "relax" in her room. Customer Care Representative had given her a stress ball earlier in the day and Ct was playing with that throughout the interaction. Customer Care Representative called Ct's [id number], Shahzad (ph# [phone]), to see if she knows who Ct's PCP is. She did not know who her doctor is. Discussed discharge planning with her. She reported she thinks Ct gets $300/week vs $300/month. Shahzad reported she is going to look in to see if Ct would qualify for [facility] which would allow her to follow up with [facility] if Ct is open to it. IFEANYI Ortega
[2019-02-24] MEDS: LORazepam 1 MG tablet PO PRN (14:20)
--- NOTE | 2019-02-24 17:00 | NUR ---
Pt. bladder scanned and has 800mls of residual urine after pt. attempted to urinate. ASHA Davis ordered straight cath and urology consult. RN spoke with Dr. Ivy who recommended straight cath q 6 hours or bladder scan and straight cath if residual is 400mls. Pt. straight cathed and 800mls bossman colored urine drained. Odor WNL. Pt. encouraged to drink more fluids.
--- NOTE | 2019-02-24 18:00 | NUR ---
Nursing Progress Note: Legal hold: Voluntary Client on voluntary DTS Report received from nurse with use of SBAR: MARTI Knox Why are they here: The patient was re-admitted after medically stabilized on the medical unit. She was treated on the medical unit for bilateral pulmonary embolism, UTI, Urinary Retention. The patient has a history of a learning disability and was living at home with her family. She was originally brought to the ER by her family because she stopped eating at home and had significant weight loss. She was admitted to [facility] from the ER for being a danger to herself and was planning to kill herself by not eating. Once on the unit she developed tachycardia and was sent to the medical floor. She is now back at [facility] for further psychiatric stabilization/evaluation and has signed in voluntarily. Assessment What happened this shift: Pt. asleep at start of shift. Pt. took medications and ate all meals in community room. 1:1 done at bedside. Pt. denies SI/HI, A/V Hallucinations. Pt. reporting anxiety about future and did want to talk about discharge plans. Pt. seen wringing hands vigorously. Pt. refused to go to groups, pt. states, she wanted to stay in her room and be near the toilet. RN received order to bladder scan pt. and 800 urine residual discovered. ASHA Davis ordered straight cath and urology consult. Dr. Ivy contacted and already was following pt. on medical floor. Her recommendations were to bladder scan pt. q6hrs and benavides or straight cath if residual greater than 400mls. Pt. on daily weights. Pt. eating above 50% of her meals and drinking over 75% of her ensure supplements. Pt. seen by PT today and recommended walking 3-5 times a day and pt. discharged from PT. ASHA Davis wants pt. to receive Ativan before group so that pt. is more apt to go. S/I, H/I: Denies A/VH: Denies Sleep: Pt. napped x1 ADL's: Pt's gait remains weak and she ambulates with the use of a FWW with effectiveness. Fall precautions remain in place Group attendance: Pt. did not attend group today because of anxiety. Were meds taken: Yes Any med S/E: None Mental Status Exam Appearance: Frail, looks older than stated age. Appropriately dressed Eye contact: Fair Behavior: Cooperative, anxious, isolative, and guarded. Speech: Soft, pressured at times and difficult to understand Mood: Guarded Affect: Constricted Thought process: Circumstantial Thought Content: reading her Bible. Cognition: A& O X4 Insight: Poor Judgment: Poor to fair Interventions PRN's used: Therapeutic interventions: Introduced self and established rapport, maintained a safe and therapeutic environment, ensured contract for safety, monitored I&Os, encouraged independent performance of ADLs and maintained fall precautions, monitored behaviors and need for intervention, provided clear and simple directions, and maintained Q 15 min safety checks. Restraints/seclusion/emergency medication: N/A Justification of Continued Inpatient Treatment: Pt. continues to be passively suicidal and require help performing ADLs. She requires medication adjustments and a safe and therapeutic environment.
[2019-02-24 20:00] VITALS: BP 95/65
--- NOTE | 2019-02-24 20:00 | NUR ---
Pt. bladder scanned after voiding per order, bladder scan indicated 299mL of urine. Per order protocol no straight cath performed at this time, pt. denies any bladder discomfort, will continue to monitor. Addendum: 02/24/19 at 2221 by Precious Prince RN Amended: Links added.
[2019-02-24 20:30] VITALS: BP 105/65
[2019-02-24] MEDS: docusate sod 250mg capsule PO SCH (20:48)
[2019-02-24] MEDS: mirtazapine 15mg tablet PO SCH (20:49)
[2019-02-24] MEDS: hydrOXYzine 25 MG tablet PO PRN (20:50)
--- NOTE | 2019-02-25 02:02 | NUR ---
Nursing Progress Note: Legal hold: Voluntary Client on voluntary DTS Report received from nurse with use of SBAR: MARTI Salgado Why are they here: The patient was re-admitted after medically stabilized on the medical unit. She was treated on the medical unit for bilateral pulmonary embolism, UTI, Urinary Retention. The patient has a history of a learning disability and was living at home with her family. She was ordinally brought to the ER by her family because she stopped eating at home and had significant weight loss. She was admitted to [facility] from the ER for being a danger to herself and was planning to kill herself by not eating. Once on the unit she developed tachycardia and was sent to the medical floor. She is now back at [facility] for further psychiatric stabilization/evaluation and has signed in voluntarily. Assessment What has happened this shift: Pt. received a visit from her family at the beginning of the shift, and visit took place in the Group Room. Afterwards pt. retreated to her room, and appeared animated and calm, she reported that visit went well and she was just waiting for her HS medications. V/S obtained by this investment underwriter and BP was initially decreased, however upon retaking manually was WNL and scheduled Atenolol was administered. During this time, pt's mood appeared to change and she began to present as increasingly anxious, slightly irritable, and impatient. She requests an HS snack of yogurt in order to help her swallow her medications, and this was obtained by investment underwriter. Pt. proceeded to impatiently help this investment underwriter open her HS medications and place them in medication cups, she then mixed them with yogurt. 1:1 completed, and pt. continues to deny S/I, although remains preoccupied with thoughts of . She looks intensely at this investment underwriter and states, "I'm not like you, my bones are old." However, when asked by this investment underwriter if she is having anxiety r/t aging and her body processes, she irritably stated, "No, I never did! It's all God's will." When questioned by this investment underwriter regarding A/HDZ, pt. reports she hears her sister's voice, she states, "It's because I haven't seen her in a while. Don't you hear voices of people when you haven't seen them?" Pt. continues on I&Os, however she remains non-compliant with voiding in the hat placed in the toilet. Instead, pt. notifies staff when she voids. Pt. was able to eat 75% of her dinner this shift, and consumed her ordered Ensure. She continues to report that she has not yet had a bowl movement, however bowl sounds remain active X4 quadrants, and pt. reports she is passing flatus. One and a half cups of prune juice administered along with scheduled Colace, and will endorse to AM shift and continue to monitor. PRN anxiolytic administered at HS with effectiveness, will continue to monitor. S/I, H/I: Passive S/I, she currently denies S/I, however continues to be preoccupied with thoughts of . A/VH: A/HDZ, pt. reports she hears her sister's voice, she states, "It's because I haven't seen her in a while. Don't you hear voices of people when you haven't seen them?" Sleep: Pt. appears to be resting comfortably ADL's: Pt's gait remains weak, however she is able to ambulate without use of FWW this shift with steady gait, fall precautions in place. Group attendance: Pt. reports she did not attend any groups today r/t her anxiety regarding the possibility of having a BM, states, "I stayed in my room by the bathroom." Were meds taken: Yes Any med S/E: None Mental Status Exam Appearance: Frail, looks older than stated age. Appropriately dressed, however hair continues to appear disheveled. Eye contact: Good, intense at times Behavior: Cooperative, anxious, isolative, and slightly irritable Speech: Soft, pressured and intense at times Mood: Guarded, anxious, slightly irritable Affect: Constricted Thought process: Circumstantial, however pt. is able to be re-directed Thought Content: Preoccupation with and dying Cognition: A& O X3 (not to place) Insight: Poor Judgment: Poor to fair Interventions PRN's used: Atrax Therapeutic interventions: Maintained a safe and therapeutic environment, ensured contract for safety, monitored I&Os, performed bladder scan and encouraged fluids, encouraged independent performance of ADLs and maintained fall precautions, monitored behaviors and need for intervention, provided clear and simple directions, and maintained Q 15 min safety checks. Restraints/seclusion/emergency medication: N/A Justification of Continued Inpatient Treatment: Pt. continues to be passively suicidal and require some help performing ADLs. She requires medication adjustments and a safe and therapeutic environment.
[2019-02-25 07:30] VITALS: BP 98/53
[2019-02-25] MEDS: lactose-reduced food (Ensure Enlive) - 237ml bottle PO SCH ×3 (08:00→14:00)
[2019-02-25] MEDS: atenolol 25mg tablet PO SCH ×2 (08:11→20:13)
[2019-02-25] MEDS: pregabalin 25mg capsule PO SCH ×2 (08:12→20:13)
[2019-02-25] MEDS: pantoprazole 40mg Tablet.DR PO SCH (08:12)
[2019-02-25] MEDS: apixaban 5mg tablet PO SCH ×2 (08:12→20:15)
[2019-02-25] MEDS: lithium carbonate 150mg capsule PO SCH ×2 (08:13→17:23)
[2019-02-25] MEDS: sertraline 50mg tablet PO SCH (08:13)
[2019-02-25] MEDS: pregabalin 75mg capsule PO SCH ×2 (08:13→20:13)
[2019-02-25] MEDS: megestrol acetate 400mg/10ml UD oral suspension PO SCH ×2 (08:18→20:13)
[2019-02-25] MEDS: buPROPion SR 100mg tab PO SCH ×2 (09:10→20:14)
[2019-02-25] MEDS: acetaminophen 325mg tablet PO PRN ×2 (09:10→21:07)
[2019-02-25] MEDS ORDERED: magnesium citrate 296ml oral solution PO ONE (15:00)
--- NOTE | 2019-02-25 15:06 | NUR ---
Nursing Progress Note: Blanca Legal hold: Voluntary Client on voluntary DTS Report received from nurse with use of SBAR: MARTI Valdivia Why are they here: The patient was re-admitted after medically stabilized on the medical unit. She was treated on the medical unit for bilateral pulmonary embolism, UTI, Urinary Retention. The patient has a history of a learning disability and was living at home with her family. She was ordinally brought to the ER by her family because she stopped eating at home and had significant weight loss. She was admitted to [facility] from the ER for being a danger to herself and was planning to kill herself by not eating. Once on the unit she developed tachycardia and was sent to the medical floor. She is now back at [facility] for further psychiatric stabilization/evaluation and has signed in voluntarily. Assessment What has happened this shift: Patient was up sitting at the side of the bed at change of shift. Cooperative with 1:1 physical and MH assessment. Rates her depression at 7/10 and anxiety the same. Denies SI. States she attempted to void but was unable to, bladder was scanned showing approximately 750mL urine. Straight cath for 650mL of medium bossman urine with a strong odor. Patient stated prior to bladder scan why do you people want to hurt me, my dad brought me here to put on some weight and all you people do is hurt me. Attempted to explain why it was necessary when patient responded I dont want to talk anymore. Remains isolated in her room, reading her bible. Prior to lunch patient stated she was unable to void again. Asked if it was time for lunch I am feeling pretty hungry. Encouraged fluid intake, patient responds it is more important to eat food than drink. S/I, H/I: Denies, no discussion about of her family, herself, or others. A/VH: A/HDZ Denies ADL's: Independent. Ambulates within room and to community room for meals Group attendance: No Were meds taken: Yes Any med S/E: None Mental Status Exam Appearance: Frail, in green scrubs, hair dischelved Eye contact: Fair, will look away or close eyes when disengaging from convesations Behavior: isolating, paranoid, agitation r/t bladder scanning and straight cath Speech: Soft, normal rate, rhythm Mood: Constricted, irritable r/t urinary retention Affect: Congruent with mood Thought process: linear Thought Content: focused on eating Cognition: A& O X3 (not to place) Insight: Poor Judgment: Poor to fair Interventions PRN's used: Therapeutic interventions: Maintained a safe and therapeutic environment, ensured contract for safety, monitored I&Os, performed bladder scan and encouraged fluids, encouraged independent performance of ADLs and maintained fall precautions, monitored behaviors and need for intervention, provided clear and simple directions, and maintained Q 15 min safety checks. Restraints/seclusion/emergency medication: N/A Justification of Continued Inpatient Treatment: Pt. continues to be passively suicidal and require some help performing ADLs. She requires medication adjustments and a safe and therapeutic environment.
[2019-02-25 20:00] VITALS: BP 100/66
[2019-02-25] MEDS: magnesium hydroxide 30ml (MOM) UD suspension PO PRN (20:13)
[2019-02-25] MEDS: clonazePAM 0.5mg tablet PO SCH (20:14)
[2019-02-25] MEDS: mirtazapine 15mg tablet PO SCH (20:14)
[2019-02-25] MEDS: docusate sod 250mg capsule PO SCH (20:14)
--- NOTE | 2019-02-25 21:30 | NUR ---
Pt. refused to attempt to void before bladder scanned, bladder scan indicated 475mL of urine. Per order protocol straight cath performed at this time with 510ml urine drained. Pt. c/o bladder discomfort during procedure and was able to identify relief after urine drained. Pt's leonor area inflamed, however, pt denied burning, itching and all other symptoms at this time. Pt claimed discomfort r/t straight cath and was provided PRN Tylenol, will continue to monitor.
--- NOTE | 2019-02-26 04:48 | NUR ---
Nursing Progress Note: Legal hold: Voluntary Client on voluntary DTS Report received from nurse with use of SBAR: MARTI Salgado Why are they here: The patient was re-admitted after medically stabilized on the medical unit. She was treated on the medical unit for bilateral pulmonary embolism, UTI, Urinary Retention. The patient has a history of a learning disability and was living at home with her family. She was ordinally brought to the ER by her family because she stopped eating at home and had significant weight loss. She was admitted to [facility] from the ER for being a danger to herself and was planning to kill herself by not eating. Once on the unit she developed tachycardia and was sent to the medical floor. She is now back at [facility] for further psychiatric stabilization/evaluation and has signed in voluntarily. Assessment What has happened this shift: Patient observed in her bedroom at the beginning of shift. She received visit with family during HS visitation, observed appropriately engaging. After visitation the patient went back to her bedroom. This senior grant writer attempted assessment and the patient was not compliant, clapping her hands, stating she wanted her medication. This senior grant writer agreed to doing so and asked the patient if she'd attempt to void before she was bladder scanned and she refused to do so. Patient was compliant with all medications and received PRN MOM with HS medications. Patient continued to refuse to attempt void before bladder scan stating, "I've been trying to all day, I can't." Bladder scan results of 475ml met parameters for straight cath and the patient was upset and stated, "you all just enjoy looking at my vagina." She was assured by this senior grant writer straight cathing her was not for enjoyment but for her health. 510ml urine was drained at that time. Vaginal inflammation noted, however, patient denied discomfort before straight cath. Patient remained in bed for the remainder of the shift. S/I, H/I: None reported, refused assessment A/VH: None reported, refused assessment Sleep: Refer to sleep assessment ADL's: Pt's gait remains weak, however she is able to ambulate without use of FWW this shift with steady gait, fall precautions in place. Group attendance: No groups this shift Were meds taken: Yes Any med S/E: None reported or observed Mental Status Exam Appearance: Frail, disheveled, appropriate attire Eye contact: Good, intense at times Behavior: Anxious, isolative, and slightly irritable Speech: Soft, pressured and intense at times Mood: Guarded, anxious, slightly irritable Affect: Constricted Thought process: Preoccupied Thought Content: Preoccupation with medication, wanting to be left alone Cognition: A& O X3 (not to place) Insight: Poor Judgment: Poor to fair Interventions PRN's used: Tylenol Therapeutic interventions: Maintained a safe and therapeutic environment, ensured contract for safety, monitored I&Os, performed bladder scan and encouraged fluids, encouraged independent performance of ADLs and maintained fall precautions, monitored behaviors and need for intervention, provided clear and simple directions, and maintained Q 15 min safety checks. Restraints/seclusion/emergency medication: None Justification of Continued Inpatient Treatment: Pt. continues to be passively suicidal and require some help performing ADLs. She requires medication adjustments and a safe and therapeutic environment.
[2019-02-26] MEDS: atenolol 25mg tablet PO SCH ×2 (08:00→21:25)
[2019-02-26 08:14] VITALS: BP 90/48
[2019-02-26] MEDS: apixaban 5mg tablet PO SCH ×2 (08:34→21:26)
[2019-02-26] MEDS: lactose-reduced food (Ensure Enlive) - 237ml bottle PO SCH ×3 (08:35→18:09)
[2019-02-26] MEDS: clonazePAM 0.5mg tablet PO SCH ×2 (08:35→21:26)
[2019-02-26] MEDS: pantoprazole 40mg Tablet.DR PO SCH (08:36)
[2019-02-26] MEDS: megestrol acetate 400mg/10ml UD oral suspension PO SCH ×2 (08:36→21:25)
[2019-02-26] MEDS: pregabalin 75mg capsule PO SCH ×2 (08:36→21:27)
[2019-02-26] MEDS: pregabalin 25mg capsule PO SCH ×2 (08:36→21:25)
[2019-02-26] MEDS: lithium carbonate 150mg capsule PO SCH ×2 (08:37→17:30)
[2019-02-26] MEDS: buPROPion SR 100mg tab PO SCH ×2 (08:38→21:27)
[2019-02-26] MEDS: sertraline 50mg tablet PO SCH (08:40)
[2019-02-26] MEDS ORDERED: magnesium citrate 296ml oral solution PO PRN (10:40)
[2019-02-26] MEDS ORDERED: PEG 3350/Na sulf,bicarb,Cl/KCl oral sol 4 liter bottle PO ONE (11:20)
--- NOTE | 2019-02-26 14:27 | NUR ---
Reassessment: Pt scaled wt documented 46.3kg, up from 45.2kg. Pt PO intake increasing, avg 25-49% most meals, and avg 75-100% ONS consumption, pt is meeting needs to prevent further wt loss, encourage PO intake for nutrition repletion. LBM 02/19, pt is receiving routine bowel care and PRN MoM given 3 times. If pt continues with constipation, may benefit from additional bowel care. Will continue to monitor PO intake and ONS acceptance. Rec: 1. Continue regular diet 2. Ensure Enlive with all meals 3. Encourage PO Intake 4. routine bowel care; consider additional if continues w/ constipation 5. weight per rx Addendum: 02/26/19 at 1429 by Wing Kristian ALCALA Amended: Links added. Addendum: 02/26/19 at [address] RD agree with internal audit senior manager note
--- NOTE | 2019-02-26 16:26 | NUR ---
Pt bladder scan done per protocol with 664ml result. Pt refused to attempt to urinate and requested to be cath'd. PA contacted for possible Louie r/t pt continued refusal to urinate, continued retention and increasing risk for ROBERT/UTI. Order received. Pt then refused all catheterization. PA in to talk with pt in afternoon. Pt agrees to straight cath at this x. 850 ml urine return, bossman color. Osiris area slightly red but pt denies pain.
--- NOTE | 2019-02-26 17:14 | NUR ---
Pt slowly drinking golytley without BM result yet. Pt continues to state "I'm not drinking anymore, you can't make me, I have to eat". Per q 6 h protocol, pt to be bladder scanned again at 1900 once pt agreed to urine cath at 1300.
--- NOTE | 2019-02-26 17:49 | NUR ---
Nursing Progress Note: Legal hold: Voluntary Client on voluntary DTS Report received from noc nurse with use of SBAR Why are they here: The patient was re-admitted after medically stabilized on the medical unit. She was treated on the medical unit for bilateral pulmonary embolism, UTI, Urinary Retention. The patient has a history of a learning disability and was living at home with her family. She was ordinally brought to the ER by her family because she stopped eating at home and had significant weight loss. She was admitted to [facility] from the ER for being a danger to herself and was planning to kill herself by not eating. Once on the unit she developed tachycardia and was sent to the medical floor. She is now back at [facility] for further psychiatric stabilization/evaluation and has signed in voluntarily. Assessment What has happened this shift: Patient sleeping at beginning of shift. Pt awoke and Bladder scanner used and read 664 ml. RN asked if pt would like to use bathroom and pt states just cath me, its not my fault I cant pee. Pt has not voided on her own. RN asked PA for order for Louie to reduce chance of ROBERT and UTI d/t pt inability to urinate on own, and full bladder every time scanned. Order received from ASHA Shahid. Pt refused this catheter and became angry and tried to throw the catheter off the bed. RN explained reason for catheter and pt still was angry and refused. Pt went to bathroom stall but could not urinate. PA informed. Pt given more laxative per PA order as KUB shows abdomen full of stool. When 1:1 Assesssment attempted pt responds with I dont know , Im not going to tell you, Why to every question. She is beligerant to all questioning. After talking with PA, pt agrees to straight cath and drinking Golytley. Cath done with 850ml urine return. Iesha color. Pt then started drinking golytley. Pt states she will drink this but only if she can eat also. Pt ambulates to dining room steady gait. Pt BP med held this am d/t hypotensive. PA aware. Pt encouraged through afternoon to drink golytley with no BM yet. At more than half of solution left, pt states Im not drinking anymore, you cant make me, I wont hurt my stomach muscles, Im supposed to eat and get nutrients. Pt told multiple times she is allowed to eat. Pt ambulates to dinner. S/I, H/I: None reported, refused assessment A/VH: None reported, refused assessment Sleep: 7.5 h last noc. Naps during the day ADL's: Pt's gait remains weak, however she is able to ambulate without use of FWW this shift with steady gait, fall precautions in place. Group attendance: No groups this shift Were meds taken: Yes Any med S/E: None reported or observed Mental Status Exam Appearance: Frail, disheveled, appropriate attire Eye contact: Good, intense at times Behavior: Anxious, isolative, and slightly irritable Speech: Soft, pressured and intense at times Mood: Guarded, anxious, slightly irritable Affect: Constricted Thought process: Preoccupied Thought Content: Preoccupation with medication, wanting to be left alone Cognition: A& O X3 (not to place) Insight: Poor Judgment: Poor to fair Interventions PRN's used: None Therapeutic interventions: Maintained a safe and therapeutic environment, ensured contract for safety, monitored I&Os, performed bladder scan and encouraged fluids, encouraged independent performance of ADLs and maintained fall precautions, monitored behaviors and need for intervention, provided clear and simple directions, and maintained Q 15 min safety checks. Restraints/seclusion/emergency medication: None Justification of Continued Inpatient Treatment: Pt. continues to be passively suicidal and require some help performing ADLs. She requires medication adjustments and a safe and therapeutic environment.
[2019-02-26 20:51] VITALS: BP 97/65
[2019-02-26] MEDS: docusate sod 250mg capsule PO SCH (21:00)
[2019-02-26] MEDS ORDERED: bisacodyl 10mg suppository rectal RC ONE (21:05)
--- NOTE | 2019-02-26 21:05 | NUR ---
Pt became highly agitated, aggressively grabbing at her face, with this nurse when asked to attempt urination or BM but pt was compliant and sat on the toilet 15 minutes before giving up with no result. Bladder scan done per protocol with 327ml result. No catheterization at this time. She complains of stomach discomfort and provided Maalox upon request. N/O received from ASHA Davis for one time Dulcolax suppository. Pt cooperative with procedure.
[2019-02-26] MEDS: mirtazapine 15mg tablet PO SCH (21:26)
--- NOTE | 2019-02-27 04:31 | NUR ---
Pt awoke to toilet and bladder scan. Pt had liquid BM while sleeping. She was compliant getting up to toilet, freshen up and bladder scan. Pt bladder scan showed 681ml and and st cath per protocol; 1085 drained. Urine remains dark yellow. During perirectal care pt c/o rectal pain and while wiping compacted stool felt by the nurse. Pt unwilling to bare due r/t fear of pain. Patient anxious relieving gas and bowels in front of staff but remained cooperative.
--- NOTE | 2019-02-27 05:31 | NUR ---
Nursing Progress Note: Legal hold: Voluntary Client on voluntary DTS Report received from nurse with use of SBAR: MARTI Salgado Why are they here: The patient was re-admitted after medically stabilized on the medical unit. She was treated on the medical unit for bilateral pulmonary embolism, UTI, Urinary Retention. The patient has a history of a learning disability and was living at home with her family. She was ordinally brought to the ER by her family because she stopped eating at home and had significant weight loss. She was admitted to [facility] from the ER for being a danger to herself and was planning to kill herself by not eating. Once on the unit she developed tachycardia and was sent to the medical floor. She is now back at [facility] for further psychiatric stabilization/evaluation and has signed in voluntarily. Assessment What has happened this shift: Patient observed in her bedroom sitting in bedside chair at the beginning of shift. ASHA Davis spoke with pt about cooperating with bladder scan, toileting/st cath and bowel care. Pt agreed to cooperate with nursing staff. Patient perseverating on medications until provided. She received visitors and once visitors left she was provided PRN Bisacodyl suppository as well as bladder scanned with 327ml, no st cath at this time. Patient compliant with all medication. Patient woke by staff later in the shift to toilet and bladder scan and pt had liquid BM. During perirectal care this handbook writer was able to feel compaction but pt is experiencing pain causing her to avoid baring down. Pt educated on continuing to try. Her bladder scan showed 681ml and she was st cathed per protocol and 1085ml dark yellow urine drained. Patient pleasant, cooperative and thankful to staff helping at this time. Will continue to monitor. S/I, H/I: None reported A/VH: None reported Sleep: Refer to sleep assessment ADL's: Pt's gait remains weak, however she is able to ambulate without use of FWW this shift with steady gait, fall precautions in place. Group attendance: No groups this shift Were meds taken: Yes Any med S/E: None reported or observed Mental Status Exam Appearance: Frail, disheveled, appropriate attire Eye contact: Good, intense at times Behavior: Anxious, isolative, and slightly irritable Speech: Soft, pressured and intense at times Mood: Guarded, anxious, slightly irritable Affect: Constricted Thought process: Preoccupied Thought Content: Preoccupation with medication, wanting to be left alone Cognition: A& O X3 (not to place) Insight: Poor Judgment: Poor to fair Interventions PRN's used: Golitely, Bisacodyl suppository Therapeutic interventions: Maintained a safe and therapeutic environment, ensured contract for safety, monitored I&Os, performed bladder scan and encouraged fluids, encouraged independent performance of ADLs and maintained fall precautions, monitored behaviors and need for intervention, provided clear and simple directions, and maintained Q 15 min safety checks. Restraints/seclusion/emergency medication: None Justification of Continued Inpatient Treatment: Pt. continues to be passively suicidal and require some help performing ADLs. She requires medication adjustments and a safe and therapeutic environment.
[2019-02-27 07:16] VITALS: BP 98/63
[2019-02-27] MEDS: buPROPion SR 100mg tab PO SCH (07:43)
[2019-02-27] MEDS: sertraline 50mg tablet PO SCH (07:44)
[2019-02-27] MEDS: pantoprazole 40mg Tablet.DR PO SCH (07:44)
[2019-02-27] MEDS: apixaban 5mg tablet PO SCH ×2 (07:44→20:48)
[2019-02-27] MEDS: pregabalin 75mg capsule PO SCH ×2 (07:44→20:48)
[2019-02-27] MEDS: atenolol 25mg tablet PO SCH ×2 (07:44→20:57)
[2019-02-27] MEDS: clonazePAM 0.5mg tablet PO SCH ×2 (07:45→20:50)
[2019-02-27] MEDS: lithium carbonate 150mg capsule PO SCH ×2 (07:45→17:38)
[2019-02-27] MEDS: pregabalin 25mg capsule PO SCH ×2 (07:46→20:47)
[2019-02-27] MEDS: megestrol acetate 400mg/10ml UD oral suspension PO SCH ×2 (07:46→20:57)
[2019-02-27 07:47] VITALS: BP 98/63
[2019-02-27] MEDS: lactose-reduced food (Ensure Enlive) - 237ml bottle PO SCH ×3 (08:00→18:07)
--- NOTE | 2019-02-27 12:42 | NUR ---
CONSTIPATION: Per hospitalist administered a soap suds enema. Attempted digital extraction with minimal evacuation as the feces is too high to reach. Unable to effectively administer enema due to stool blocking the tube and inability to get past the stool. Patient experienced significant discomfort with the procedure and although she attempted to defecate following procedure, minimal stool was excreted.
--- NOTE | 2019-02-27 12:47 | NUR ---
URINARY RETENTION: Bladder scan for 389 mL.
--- NOTE | 2019-02-27 14:29 | NUR ---
Nursing Progress Note: Blanca Legal hold: Voluntary Client on voluntary DTS Report received from nurse with use of SBAR: MARTI Tsang Why are they here: The patient was re-admitted after medically stabilized on the medical unit. She was treated on the medical unit for bilateral pulmonary embolism, UTI, Urinary Retention. The patient has a history of a learning disability and was living at home with her family. She was ordinally brought to the ER by her family because she stopped eating at home and had significant weight loss. She was admitted to [facility] from the ER for being a danger to herself and was planning to kill herself by not eating. Once on the unit she developed tachycardia and was sent to the medical floor. She is now back at [facility] for further psychiatric stabilization/evaluation and has signed in voluntarily. Assessment What has happened this shift: Patient was sleeping at change of shift. Shortly before breakfast asked for a female to assist her as she experienced some fecal incontinence. Patient continues to have rectal impaction which she is unable to pass. Notified hospitalist to evaluate. Patient has requested to remain in her room due to the continuous leakage of liquid stool. Administered soap suds enema per hospitalist order., unable to move tube pass impaction of stool. Attempted to digitally evacuate stool, but difficult to reach. Patient attempted to defecate following enema, but without success. Bladder scan at 1230 for approximately 385mL of urine. Patient resting in bed, has continued to attempt BM without success. S/I, H/I: None reported A/VH: None reported Sleep: 6 ADL's: pt is steadier when walking, ambulating frequently within her room Group attendance: No Were meds taken: Yes Any med S/E: None reported or observed Mental Status Exam Appearance: emaciated, greasy hair, clean green scrubs Eye contact: Good, intense at times Behavior: gaurded, less isolative Speech: Soft, normal rate and rhythm Mood: anxious Affect: blunted Thought process: linear Thought Content: incontinence, inability to urinate, eating Cognition: A& O X3 (not to place) Insight: Poor Judgment: Poor to fair Interventions PRN's used: Therapeutic interventions: Maintained a safe and therapeutic environment, ensured contract for safety, monitored I&Os, performed bladder scan and encouraged fluids, encouraged independent performance of ADLs and maintained fall precautions, monitored behaviors and need for intervention, provided clear and simple directions, and maintained Q 15 min safety checks. Restraints/seclusion/emergency medication: None Justification of Continued Inpatient Treatment: Pt. continues to be passively suicidal and require some help performing ADLs. She requires medication adjustments and a safe and therapeutic environment.
[2019-02-27] MEDS ORDERED: LORazepam 1 MG tablet PO PRN ×2 (19:20)
[2019-02-27] MEDS ORDERED: lactulose 20gm/30ml cup PO PRN (19:40)
[2019-02-27] MEDS ORDERED: mineral oil 133ml enema RC PRN (19:40)
[2019-02-27 19:57] VITALS: BP 103/59
[2019-02-27] MEDS: docusate sod 250mg capsule PO SCH (20:48)
[2019-02-27] MEDS: mirtazapine 15mg tablet PO SCH (20:49)
[2019-02-27] MEDS: lactulose 20gm/30ml cup PO SCH (21:00)
[2019-02-27] MEDS: polyethylene glycol 3350 17gm powd pack PO SCH (21:00)
--- NOTE | 2019-02-27 22:43 | NUR ---
Nursing Progress Note: Blanca Legal hold: Voluntary Client on voluntary DTS Report received from nurse with use of SBAR: MARTI Salgado Why are they here: The patient was re-admitted after medically stabilized on the medical unit. She was treated on the medical unit for bilateral pulmonary embolism, UTI, Urinary Retention. The patient has a history of a learning disability and was living at home with her family. She was ordinally brought to the ER by her family because she stopped eating at home and had significant weight loss. She was admitted to [facility] from the ER for being a danger to herself and was planning to kill herself by not eating. Once on the unit she developed tachycardia and was sent to the medical floor. She is now back at [facility] for further psychiatric stabilization/evaluation and has signed in voluntarily. Assessment What has happened this shift: Patient was sleeping at change of shift. Patient has requested to remain in her room due to the continuous leakage of liquid stool. Administered Mineral oil enema per hospitalist order., unable to move tube pass impaction of stool. Attempted to digitally evacuate stool, but difficult to reach. Patient attempted to defecate following enema, but without success. Bladder scan at 2230 for approximately 825 mL of urine. Patient cathed and 650 ml out put. Patient resting in bed, has continued to attempt BM without success. S/I, H/I: None reported A/VH: None reported Sleep: 6 ADL's: pt is steadier when walking, ambulating frequently within her room Group attendance: No Were meds taken: Yes Any med S/E: None reported or observed Mental Status Exam Appearance: emaciated, greasy hair, clean green scrubs Eye contact: Good, intense at times Behavior: gaurded, less isolative Speech: Soft, normal rate and rhythm Mood: anxious Affect: blunted Thought process: linear Thought Content: incontinence, inability to urinate, eating Cognition: A& O X3 (not to place) Insight: Poor Judgment: Poor to fair Interventions PRN's used: Therapeutic interventions: Maintained a safe and therapeutic environment, ensured contract for safety, monitored I&Os, performed bladder scan and encouraged fluids, encouraged independent performance of ADLs and maintained fall precautions, monitored behaviors and need for intervention, provided clear and simple directions, and maintained Q 15 min safety checks. Restraints/seclusion/emergency medication: None Justification of Continued Inpatient Treatment: Pt. continues to be passively suicidal and require some help performing ADLs. She requires medication adjustments and a safe and therapeutic environment. Addendum: 02/28/19 at 0441 by Elliott Adrian RN 0400 blader scan 474 ml cathed with 400 ml output.
[2019-02-28] MEDS: megestrol acetate 400mg/10ml UD oral suspension PO SCH ×2 (07:27→16:45)
[2019-02-28] MEDS: clonazePAM 0.5mg tablet PO SCH ×2 (07:29→20:25)
[2019-02-28] MEDS: lactulose 20gm/30ml cup PO SCH ×3 (07:29→20:00)
[2019-02-28] MEDS: lithium carbonate 150mg capsule PO SCH ×2 (07:30→17:16)
[2019-02-28] MEDS: pantoprazole 40mg Tablet.DR PO SCH (07:30)
[2019-02-28] MEDS: sertraline 50mg tablet PO SCH (07:32)
[2019-02-28] MEDS: pregabalin 75mg capsule PO SCH ×2 (07:33→20:25)
[2019-02-28] MEDS: buPROPion SR 150mg tablet PO SCH (07:33)
[2019-02-28] MEDS: pregabalin 25mg capsule PO SCH ×2 (07:34→20:25)
[2019-02-28] MEDS: atenolol 25mg tablet PO SCH ×2 (07:34→20:24)
[2019-02-28] MEDS: apixaban 5mg tablet PO SCH ×2 (07:34→20:25)
[2019-02-28] MEDS: lactose-reduced food (Ensure Enlive) - 237ml bottle PO SCH ×3 (08:00→18:00)
[2019-02-28 11:24] VITALS: BP 99/59
[2019-02-28] MEDS ORDERED: magnesium citrate 296ml oral solution PO ONE (13:40)
--- NOTE | 2019-02-28 17:30 | NUR ---
Nursing Progress Note: Blanca Legal hold: Voluntary Client on voluntary DTS Report received from nurse with use of SBAR: MARTI Tsang Why are they here: The patient was re-admitted after medically stabilized on the medical unit. She was treated on the medical unit for bilateral pulmonary embolism, UTI, Urinary Retention. The patient has a history of a learning disability and was living at home with her family. She was ordinally brought to the ER by her family because she stopped eating at home and had significant weight loss. She was admitted to [facility] from the ER for being a danger to herself and was planning to kill herself by not eating. Once on the unit she developed tachycardia and was sent to the medical floor. She is now back at [facility] for further psychiatric stabilization/evaluation and has signed in voluntarily. Assessment What has happened this shift: Patient was resting in bed peacefully at change of shift. Administered mineral oil enema per order. Pt also received her Lactulose x2 and 1 bottle of Mag Citrate. Administered soap suds enema per hospitalist order,was unable to move tube pass impaction of stool. Attempted to digitally evacuate stool, but difficult to reach and was marco consistency and difficult to move. Shortly after administration of Mag Citrate, Pt had an incontinent episode of liquid stool. She had continuous leakage of bowels and was put in the shower to be cleaned up. She was helped to the bathroom and had multiple BMs of liquid brown stool. Bladder scan performed x2 and there was not enough this shift to perform straight cath. She is pleasant and cooperative with care. She continues to have short answer responses, but they are appropriate and on topic. Hair was washed today. S/I, H/I: None reported A/VH: None reported Sleep: rests throughout the day between meals. ADL's: pt is steadier when walking,used a walker in the shower, seen ambulating frequently within her room Group attendance: No Were meds taken: Yes Any med S/E: None reported or observed Mental Status Exam Appearance: emaciated, greasy hair, clean green scrubs, jacket Eye contact: Good, mostly direct Behavior: guarded, less isolative Speech: Soft, normal rate and rhythm Mood: anxious Affect: blunted Thought process: linear Thought Content: incontinence of stool, "my stomach hurts" Cognition: A& O X3 (not to place) Insight: Poor Judgment: Poor Interventions PRN's used: Therapeutic interventions: Maintained a safe and therapeutic environment, ensured contract for safety, monitored I&Os, performed bladder scan and encouraged fluids, encouraged independent performance of ADLs and maintained fall precautions, monitored behaviors and need for intervention, provided clear and simple directions, and maintained Q 15 min safety checks. Restraints/seclusion/emergency medication: None Justification of Continued Inpatient Treatment: Pt. continues to be passively suicidal and require some help performing ADLs. She requires medication adjustments and a safe and therapeutic environment.
[2019-02-28 20:00] VITALS: BP 97/61
[2019-02-28] MEDS: mirtazapine 15mg tablet PO SCH (20:25)
[2019-02-28] MEDS: docusate sod 250mg capsule PO SCH (20:29)
[2019-02-28] MEDS: polyethylene glycol 3350 17gm powd pack PO SCH (20:30)
[2019-03-01] MEDS: lactulose 20gm/30ml cup PO SCH ×4 (02:00→20:20)
--- NOTE | 2019-03-01 03:17 | NUR ---
Nursing Progress Note: Blanca Legal hold: Voluntary Client on voluntary DTS Report received from nurse with use of SBAR: MARTI Salgado Why are they here: The patient was re-admitted after medically stabilized on the medical unit. She was treated on the medical unit for bilateral pulmonary embolism, UTI, Urinary Retention. The patient has a history of a learning disability and was living at home with her family. She was ordinally brought to the ER by her family because she stopped eating at home and had significant weight loss. She was admitted to [facility] from the ER for being a danger to herself and was planning to kill herself by not eating. Once on the unit she developed tachycardia and was sent to the medical floor. She is now back at [facility] for further psychiatric stabilization/evaluation and has signed in voluntarily. Assessment What has happened this shift: Pt stayed in room all shift continues to be incontinent of liquid stool. Frequent leonor-care and barrier cream applied. Bladder scan at [address] cathed for 525 bossman colored urine. Pt sat several times on toilet and tried to urinate S/I, H/I: None reported A/VH: None reported Sleep: Asleep at this time ADL's: pt is steadier when walking, ambulating frequently within her room Group attendance: No Were meds taken: Yes Any med S/E: None reported or observed Mental Status Exam Appearance: emaciated, greasy hair, clean green scrubs Eye contact: Good, intense at times Behavior: guarded, Speech: Soft, normal rate and rhythm Mood: anxious Affect: blunted Thought process: linear Thought Content: incontinence, inability to urinate, eating Cognition: A& O X3 (not to place) Insight: Poor Judgment: Poor to fair Interventions PRN's used: Therapeutic interventions: Maintained a safe and therapeutic environment, ensured contract for safety, monitored I&Os, performed bladder scan and encouraged fluids, encouraged independent performance of ADLs and maintained fall precautions, monitored behaviors and need for intervention, provided clear and simple directions, and maintained Q 15 min safety checks. Restraints/seclusion/emergency medication: None Justification of Continued Inpatient Treatment: Pt. continues to be passively suicidal and require some help performing ADLs. She requires medication adjustments and a safe and therapeutic environment. Addendum: 03/01/19 at 0611 by Trinh Swenson RN Bladder scan at 0500 for 135. leonor care done barrier cream applied for final time this shift at 0600. Pt still incontinent loose almost liquid stool but the volume is decreasing through out the shift.
[2019-03-01] MEDS: megestrol acetate 400mg/10ml UD oral suspension PO SCH (08:20)
[2019-03-01] MEDS: atenolol 25mg tablet PO SCH ×2 (08:21→20:00)
[2019-03-01] MEDS: pregabalin 75mg capsule PO SCH ×2 (08:21→20:20)
[2019-03-01] MEDS: pantoprazole 40mg Tablet.DR PO SCH (08:21)
[2019-03-01] MEDS: apixaban 5mg tablet PO SCH ×2 (08:21→20:21)
[2019-03-01] MEDS: pregabalin 25mg capsule PO SCH ×2 (08:21→20:20)
[2019-03-01] MEDS: clonazePAM 0.5mg tablet PO SCH ×2 (08:21→20:21)
[2019-03-01] MEDS: buPROPion SR 150mg tablet PO SCH (08:21)
[2019-03-01] MEDS: sertraline 50mg tablet PO SCH (08:24)
[2019-03-01] MEDS: lithium carbonate 150mg capsule PO SCH ×2 (08:24→16:57)
[2019-03-01] MEDS: lactose-reduced food (Ensure Enlive) - 237ml bottle PO SCH ×3 (08:25→18:13)
[2019-03-01 08:36] VITALS: BP 102/68
--- NOTE | 2019-03-01 13:53 | NUR ---
Reassessment: Patient's wt is stable. Pt has been receiving heavy bowel care however still unsuccessful per RN notes. Pt s/p CT yesterday with results showing a large amount of stool in colon which is consistent with stated hx of fecal impaction per MD note. Per I&Os pt with 6 BMs yesterday however with only documented with 9 mL stool output. D/w RN who confirmed pt with multiple stools yesterday equating to more than 9 mL. Pt continues with fluctuating PO intake documented with 25-50% however up to 100% at breakfast today with mostly 100% PO intake of ONS meeting nutrient needs. No further nutrition intervention warranted at this time. Will continue to follow. Rec: 1. Continue regular diet 2. Ensure Enlive TID 3. Encourage PO Intake 4. routine bowel care; Monitor need for additional 5. weight per rx Addendum: 03/01/19 at [address] Amended: Links added.
--- NOTE | 2019-03-01 17:30 | NUR ---
Nursing Progress Note: Legal hold: Voluntary Client on voluntary DTS Report received from nurse with use of SBAR: MARTI Knox Why are they here: The patient was re-admitted after medically stabilized on the medical unit. She was treated on the medical unit for bilateral pulmonary embolism, UTI, Urinary Retention. The patient has a history of a learning disability and was living at home with her family. She was ordinally brought to the ER by her family because she stopped eating at home and had significant weight loss. She was admitted to [facility] from the ER for being a danger to herself and was planning to kill herself by not eating. Once on the unit she developed tachycardia and was sent to the medical floor. She is now back at [facility] for further psychiatric stabilization/evaluation and has signed in voluntarily. Assessment What has happened this shift: Patient is observed sleeping at change of shift. She wakes and states that she is not feeling too well. Reports that she was up most of the night having bowel movements. She states that she has not been able to urinate, tries but is unable to. Patient states that she would like to go home. She requests to eat her breakfast in her room and stays in her room most of the day other than when her parents visited and when patient was taken to the shower. Osiris care provided throughout the day and barrier cream applied. Patient reports pain, consult with prescriber Ryan, hemorrhoid cream ordered. Bladder scan at 1100 for 311. Osiris care completed, barrier cream applied. Bladder scan at 1500 for 388. Osiris care completed, barrier cream applied. Patient showered and barrier cream applied. S/I, H/I: denies A/VH: denies Sleep: 7.75 hrs NOC and rested during the day ADL's: with assistance Group attendance: No Were meds taken: Yes Any med S/E: None reported or observed Mental Status Exam Appearance: disheveled Eye contact: direct Behavior: not feeling well, unsteady on her feet, moaning softly Speech: Soft tone, poverty of speech Mood: doesnt feel well Affect: blunted Thought process: linear Thought Content: not feeling well Cognition: A& O X4 Insight: Poor Judgment: Poor to fair Interventions PRN's used: none Therapeutic interventions: Maintained a safe and therapeutic environment, ensured contract for safety, monitored I&Os, performed bladder scan and encouraged fluids, encouraged independent performance of ADLs and maintained fall precautions, monitored behaviors and need for intervention, provided clear and simple directions, and maintained Q 15 min safety checks. Restraints/seclusion/emergency medication: N/A Justification of Continued Inpatient Treatment: Pt is unable to manage her environment. Continued therapeutic support and medication management needed to provide stabilization, prevent decompensation, decrease risk to patient and re-admittance.
[2019-03-01] MEDS ORDERED: dibucaine ointment 28gm RC PRN (18:20)
[2019-03-01] MEDS ORDERED: benzocaine/benzethon 30gm ointment RC PRN (18:30)
--- NOTE | 2019-03-01 19:17 | NUR ---
RN Note: Patient in her room at change of shift. Reports eating all her dinner and feeling "full" She is assisted to the toilet where she has a large BM of soft brown stool. At this time patient reports pain to her rectum, and small amount of red blood is noted in stool. Per day shift hemorrhoid cream is ordered. Osiris-care is provided, and barrier cream applied. Patient denies any pain to her stomach upon palpation. Will continue to monitor.
[2019-03-01] MEDS: mirtazapine 15mg tablet PO SCH (20:20)
[2019-03-01] MEDS: docusate sod 250mg capsule PO SCH (20:20)
[2019-03-01 20:22] VITALS: BP 95/61
[2019-03-01] MEDS: acetaminophen 325mg tablet PO PRN (20:22)
[2019-03-01] MEDS: polyethylene glycol 3350 17gm powd pack PO SCH (20:53)
--- NOTE | 2019-03-01 23:42 | NUR ---
Nursing Progress Note: Legal hold: Voluntary Client on voluntary DTS Report received from nurse with use of SBAR: MARTI Salgado Why are they here: The patient was re-admitted after medically stabilized on the medical unit. She was treated on the medical unit for bilateral pulmonary embolism, UTI, Urinary Retention. The patient has a history of a learning disability and was living at home with her family. She was ordinally brought to the ER by her family because she stopped eating at home and had significant weight loss. She was admitted to [facility] from the ER for being a danger to herself and was planning to kill herself by not eating. Once on the unit she developed tachycardia and was sent to the medical floor. She is now back at [facility] for further psychiatric stabilization/evaluation and has signed in voluntarily. Assessment What has happened this shift: Patient in her room in bed sitting on her bed at perales eof shift. She reports being full. But it is reported patient only ate a couple bites of her dinner, but did drink her Ensure. She is assisted to the restroom at this time where she sits on the toilet and has a medium soft brown BM. She is cleaned, osiris care provided and barrier cream applied. Patient is then assisted back to bed. She has visitors this evening and after her visitors leave patient request HS medications. She denies any pain to her stomach and bladder when palpated. She denies any UTI symptoms. Patient reports having a 6/10 pain to her rectum in which Tylenol 650mg is administered with good effect. Patient is bladder scanned at 2100 for 382. Osiris-care is again completed and barrier cream applied at this time. Patients Atenolol is held this evening due to low BP. Patient reports drinking fluids throughout the shift but her water pitcher is full at shift change every request for patient to drink water was denied. Patient took her evening medications with applesauce as well this evening and refused to drink water with her medications. Will continue to monitor. S/I, H/I: Denies A/VH: Denies Sleep: Currently sleeping, see sleep assessment ADL's: With assistance Group attendance: No Were meds taken: Yes Any med S/E: None reported or observed Mental Status Exam Appearance: Disheveled Eye contact: Direct Behavior: Remains in room and in bed due to multiple bowel movements Speech: Soft tone, poverty of speech Mood: Depressed Affect: Blunted Thought process: Linear Thought Content: On osiris-care and rectum hurting Cognition: A& O X4 Insight: Poor Judgment: Poor to fair Interventions PRN's used: Tylenol Therapeutic interventions: Maintained a safe and therapeutic environment, ensured contract for safety, monitored I&Os, performed bladder scan and encouraged fluids, encouraged independent performance of ADLs and maintained fall precautions, monitored behaviors and need for intervention, provided clear and simple directions, and maintained Q 15 min safety checks. Restraints/seclusion/emergency medication: N/A Justification of Continued Inpatient Treatment: Pt is unable to manage her environment. Continued therapeutic support and medication management needed to provide stabilization, prevent decompensation, decrease risk to patient and re-admittance.
[2019-03-02] MEDS: lactulose 20gm/30ml cup PO SCH ×2 (02:00→08:00)
--- NOTE | 2019-03-02 02:19 | NUR ---
RN Note: Patient is bladder scanned at 0130 666 mL is scanned. Patient attempts to sit on toilet to void, but is unable to do so. Patient is cleaned up Leonor-care is provided and patient is straight cath with 650mLs of cloudy dark yellow urine is drained. Upon removal of the straight catheter patient does urinate a small amount onto chucks, leonor-care is provided to patient again and barrier cream applied. Will continue to monitor patient.
--- NOTE | 2019-03-02 05:15 | NUR ---
RN Note: Osiris-care provided to patient, patient has a small amount of brown soft stool when being cleaned. Barrier cream is applied. Patient is encouraged to drink water while in her room. She does take 1 small sip with encouragement then puts her water pitcher down.
[2019-03-02] MEDS: pregabalin 75mg capsule PO SCH ×2 (07:47→20:14)
[2019-03-02] MEDS: buPROPion SR 150mg tablet PO SCH (07:48)
[2019-03-02] MEDS: pregabalin 25mg capsule PO SCH ×2 (07:48→20:13)
[2019-03-02] MEDS: pantoprazole 40mg Tablet.DR PO SCH (07:48)
[2019-03-02] MEDS: apixaban 5mg tablet PO SCH ×2 (07:48→20:13)
[2019-03-02] MEDS: lithium carbonate 150mg capsule PO SCH ×2 (07:48→17:48)
[2019-03-02] MEDS: sertraline 50mg tablet PO SCH (07:49)
[2019-03-02] MEDS: clonazePAM 0.5mg tablet PO SCH ×2 (07:50→20:13)
[2019-03-02 08:00] VITALS: BP 90/60
[2019-03-02] MEDS: atenolol 25mg tablet PO SCH (08:00)
[2019-03-02] MEDS: megestrol acetate 400mg/10ml UD oral suspension PO SCH (08:08)
[2019-03-02] MEDS: lactose-reduced food (Ensure Enlive) - 237ml bottle PO SCH ×3 (08:50→17:57)
--- NOTE | 2019-03-02 17:58 | NUR ---
Nursing Progress Note: Legal hold: Voluntary Client on voluntary DTS Report received from nurse with use of SBAR: MARTI Knox Why are they here: The patient was re-admitted after medically stabilized on the medical unit. She was treated on the medical unit for bilateral pulmonary embolism, UTI, Urinary Retention. The patient has a history of a learning disability and was living at home with her family. She was ordinally brought to the ER by her family because she stopped eating at home and had significant weight loss. She was admitted to [facility] from the ER for being a danger to herself and was planning to kill herself by not eating. Once on the unit she developed tachycardia and was sent to the medical floor. She is now back at [facility] for further psychiatric stabilization/evaluation and has signed in voluntarily. Assessment What has happened this shift: Patient was asleep at change of shift and awoken for bladder scan. Patient had 317 mls of urine and attempted to urinate after the scan but was unable to go. RN went ahead and straight cathed patient and got out 300 mls of cloudy yellow urine. RN placed Clamaceptin cream on patient bottom after cleaning her. Patient has small BM in her pull up. Dr Muller came to talk to patient today and ordered a UA next time RN collects a cath urine. Dr Muller also told RN that he is going to speak to urologist to see what they can do for patient and stated she will possibly need a Foly Cath to go home. Patient slept most of the day and had breakfast in her room but got up to CR when her family came to visit. RN had patient go to CR for all meals. RN rechecked patient with Bladder Scanner at 1330 but patient only had 319. RN then rechecked patient at 1630 and patient had 403 mls of urine. RN cathed patient and got out 375 mls of urine and sent a urine sample to the lab. RN told patient that the Dr might order a Louie Cath and patient got angry and stated she won't have one. Patient then said Alice told her she could go home and have a nurse check on her from time to time. RN said that is a possibility but how are you going to urinate? Patient said she didn't know. Patient ambulatory to dinner. Patient's speech was very clear when she was angry. S/I, H/I: denies A/VH: denies Sleep: Patient slept most of the day ADL's: with assistance Group attendance: No Were meds taken: Yes Any med S/E: None reported or observed Mental Status Exam Appearance: disheveled Eye contact: direct Behavior: calm and then angry Speech: Soft tone, poverty of speech Mood: depressed/angry Affect: blunted Thought process: linear Thought Content: wanting to go home Cognition: A& O X4 Insight: Poor Judgment: Poor to fair Interventions PRN's used: none Therapeutic interventions: Maintained a safe and therapeutic environment, ensured contract for safety, monitored I&Os, performed bladder scan and encouraged fluids, encouraged independent performance of ADLs and maintained fall precautions, monitored behaviors and need for intervention, provided clear and simple directions, and maintained Q 15 min safety checks. Restraints/seclusion/emergency medication: N/A Justification of Continued Inpatient Treatment: Pt is unable to manage her environment. Continued therapeutic support and medication management needed to provide stabilization, prevent decompensation, decrease risk to patient and re-admittance.
[2019-03-02 18:18] LABS: CLARITY,URINE TURBID (Clear); COLOR,URINE YELLOW (Yellow); GLUCOSE, URINE NEGATIVE (Neg); KETONES,URINE NEGATIVE (Neg); LEUKOCYTE ESTERASE ,URINE SMALL (Neg); NITRITES, URINE POSITIVE (Neg); OCCULT BLOOD,URINE SMALL (Neg); PROTEIN,URINE NEGATIVE (Neg); UROBILINOGEN,URINE 0.2 E.U/dL (0.2-1.0)
[2019-03-02 18:25] LABS: UA COLLECTION TYPE STRAIGHT CATH
[2019-03-02 18:28] LABS: BACTERIA,URINE 4+ /HPF (Neg)
[2019-03-02 18:32] LABS: SQUAMOUS EPITHELIAL CELL,UR MODERATE /LPF (FEW)
[2019-03-02 18:39] LABS: CALCIUM CARBONATE CRYSTALS 4+ /HPF (NEGATIVE)
[2019-03-02 18:40] LABS: MUCUS STRANDS MANY /LPF (Neg); TRANSITIONAL EPI CELLS,URINE MODERATE /HPF
[2019-03-02 20:00] VITALS: BP 96/63
[2019-03-02] MEDS: docusate sod 250mg capsule PO SCH (20:14)
[2019-03-02] MEDS: mirtazapine 15mg tablet PO SCH (20:14)
[2019-03-02] MEDS: polyethylene glycol 3350 17gm powd pack PO SCH (20:17)
--- NOTE | 2019-03-03 02:32 | NUR ---
Bladder Scan & Care: 2015: 197ml 0200: 592ml, Pt cathed with 570ml out of yellow, clear urine; Osiris-care and bowel care completed; Barrier cream applied Pt depends, scrubs, bedding and absorbent padding changed.
--- NOTE | 2019-03-03 02:42 | NUR ---
Nursing Progress Note: Legal hold: Voluntary Client on voluntary DTS Report received from nurse with use of SBAR: MARTI Olivarez Why are they here: The patient was re-admitted after medically stabilized on the medical unit. She was treated on the medical unit for bilateral pulmonary embolism, UTI, Urinary Retention. The patient has a history of a learning disability and was living at home with her family. She was ordinally brought to the ER by her family because she stopped eating at home and had significant weight loss. She was admitted to [facility] from the ER for being a danger to herself and was planning to kill herself by not eating. Once on the unit she developed tachycardia and was sent to the medical floor. She is now back at [facility] for further psychiatric stabilization/evaluation and has signed in voluntarily. Assessment What has happened this shift: Pt stayed in room for entirety of shift; declined encouragement and offers to assist pt to break room for snack, however pt ate applesauce and austin crackers in room. Pt stated "I just want to take my meds and go to bed. I am fed up with it all. I just want to sleep." RN asked pt to elaborate on "fed up" reason to which pt stated "I don't want to be here for my birthday. They told me I could go home!" Pt expressed this in an angry tone. Pt was unable to formulate a plan for herself regarding her bladder care, repeating "I don't know, I just want to leave!" This RN explained pt's situation with her bladder issues and updated pt on where she was in her continuum of care. Pt listened then verbalized that she understood and was cooperative with care, although visibly frustrated at times. Pt attempted to complete most tasks herself (re: toileting) but let the RN clean and apply barrier cream. S/I, H/I: Denies Both; But pt endorses being indifferent to living per MD notes A/VH: Denies Both Sleep: See Sleep Assessment; Pt states sleep is not restful ADL's: Needs prompting and assistance Group attendance: N/A Were meds taken: Yes; Miralax Held Any med S/E: None reported nor observed Mental Status Exam Appearance: Slightly disheveled with oily hair. Pt is wearing gown, scrub pants, nonskid socks, and depends. Pt is thin and emaciated, as a result from not eating well. Eye contact: Avoidant Behavior: Cooperative with bouts of frustration, Isolated to room Speech: Slow, Soft, Hypoverbal Mood: Depressed 11/30, Anxiety 11/30, Angry/"Frustrated" 12/30 Affect: Flat with occasional smile Thought process: Linear and logical Thought Content: Wanting to discharge, Frustrated regarding recent bladder issues Cognition: A/Ox4 Insight: Poor Judgment: Poor to fair Interventions PRN's used: None Therapeutic interventions: Maintained a safe and therapeutic environment, ensured contract for safety, monitored I&Os, performed bladder scan and encouraged fluids amd straight cathed Q6 per orders, encouraged independent performance of ADLs and maintained fall precautions, monitored behaviors and need for intervention, provided clear and simple directions, and maintained Q 15 min safety checks. Restraints/seclusion/emergency medication: N/A Justification of Continued Inpatient Treatment: Pt is unable to manage her environment. Per MD notes, pt is exhibiting neuro-vegetative symptoms of depression and continues to need assistance with ADLs. MD believes pt would be high risk discharge given current presentation and that she admitted with SI by way of not eating. Continued therapeutic support and medication management needed to provide stabilization, prevent decompensation, decrease risk to patient and re-admittance.
[2019-03-03 07:50] VITALS: BP 91/58
[2019-03-03] MEDS: pregabalin 75mg capsule PO SCH ×2 (08:33→20:31)
[2019-03-03] MEDS: pantoprazole 40mg Tablet.DR PO SCH (08:33)
[2019-03-03] MEDS: megestrol acetate 400mg/10ml UD oral suspension PO SCH (08:33)
[2019-03-03] MEDS: clonazePAM 0.5mg tablet PO SCH ×2 (08:33→20:31)
[2019-03-03] MEDS: lactose-reduced food (Ensure Enlive) - 237ml bottle PO SCH ×3 (08:34→18:22)
[2019-03-03] MEDS: pregabalin 25mg capsule PO SCH ×2 (08:34→20:31)
[2019-03-03] MEDS: apixaban 5mg tablet PO SCH ×2 (08:34→20:31)
[2019-03-03] MEDS: lithium carbonate 150mg capsule PO SCH (08:34)
[2019-03-03] MEDS: sertraline 50mg tablet PO SCH (08:35)
--- NOTE | 2019-03-03 18:15 | NUR ---
Nursing Progress Note: Legal hold: Voluntary Client on voluntary DTS Report received from nurse with use of SBAR: MARTI Knox Why are they here: The patient was re-admitted after medically stabilized on the medical unit. She was treated on the medical unit for bilateral pulmonary embolism, UTI, Urinary Retention. The patient has a history of a learning disability and was living at home with her family. She was ordinally brought to the ER by her family because she stopped eating at home and had significant weight loss. She was admitted to [facility] from the ER for being a danger to herself and was planning to kill herself by not eating. Once on the unit she developed tachycardia and was sent to the medical floor. She is now back at [facility] for further psychiatric stabilization/evaluation and has signed in voluntarily. Assessment What has happened this shift: Patient is observed sleeping at change of shift. She wakes for breakfast and then gets herself up and joins others in the group room to eat. She takes her medications without issue and then returns to her room to rest. Her gait is steady and her skin tone is peak. She does not appear weak as she did past shift worked. Patient states that she would like to go home. She is not reporting S/I, H/I, or AV/H. She states that the diarrhea has stopped and she cannot state when she last had a BM. She states the pain from hemorrhoids has improved as well and denies needing anything other than barrier cream applied. She states that she has not been able to void on her own. She attempts again unsuccessfully. Bladder scan at 0905 shows 727mL, patient straight cathed with 700mLs of bossman colored, cloudy urine, with sediment removed. Follow up KUB results show large amount of stool, no obstruction. Patient meets with her family at visiting hour. S/I, H/I: denies A/VH: Denies Sleep: 6.25hrs NOC and rested during the day ADL's: Needs prompting and assistance Group attendance: no Were meds taken: Yes Any med S/E: None reported nor observed Mental Status Exam Appearance: Slightly disheveled with oily hair. Pt is wearing own shirt, scrub pants, nonskid socks, and depends. Pt is thin. Eye contact: occasional direct Behavior: Cooperative, Isolates to room Speech: Slow, Soft, Hypoverbal Mood: depressed, frustrated Affect: Flat Thought process: Linear and logical Thought Content: Wanting to discharge, Frustrated Cognition: A/Ox4 Insight: Poor to fair Judgment: Poor to fair Interventions PRN's used: None Therapeutic interventions: Maintained a safe and therapeutic environment, ensured contract for safety, monitored I&Os, performed bladder scan and encouraged fluids and straight cathed Q6 per orders, encouraged independent performance of ADLs and maintained fall precautions, monitored behaviors and need for intervention, provided clear and simple directions, and maintained Q 15 min safety checks. Restraints/seclusion/emergency medication: N/A Justification of Continued Inpatient Treatment: Pt is unable to manage her environment. Per MD notes, pt is exhibiting neuro-vegetative symptoms of depression and continues to need assistance with ADLs. MD believes pt would be high risk discharge given current presentation and that she admitted with SI by way of not eating. Continued therapeutic support and medication management needed to provide stabilization, prevent decompensation, decrease risk to patient and re-admittance.
[2019-03-03 20:00] VITALS: BP 109/76
[2019-03-03] MEDS: docusate sod 250mg capsule PO SCH (20:31)
[2019-03-03] MEDS: polyethylene glycol 3350 17gm powd pack PO SCH (20:32)
[2019-03-03] MEDS: mirtazapine 15mg tablet PO SCH (20:32)
[2019-03-03] MEDS ORDERED: lithium carbonate 150mg capsule PO SCH (21:00)
--- NOTE | 2019-03-04 03:01 | NUR ---
Nursing Progress Note: Legal hold: Voluntary Client on voluntary DTS Report received from nurse with use of SBAR: MARTI Galvez Why are they here: The patient was re-admitted after medically stabilized on the medical unit. She was treated on the medical unit for bilateral pulmonary embolism, UTI, Urinary Retention. The patient has a history of a learning disability and was living at home with her family. She was ordinally brought to the ER by her family because she stopped eating at home and had significant weight loss. She was admitted to [facility] from the ER for being a danger to herself and was planning to kill herself by not eating. Once on the unit she developed tachycardia and was sent to the medical floor. She is now back at [facility] for further psychiatric stabilization/evaluation and has signed in voluntarily. Assessment What has happened this shift: Pt stayed in room, except during visiting hours where she had her brother and sister as guests and when she met with ASHA Davis. Pt endorses anxiety and depression. She appears downcast but is friendlier than last night, with occasional smiles and direct eye contact. She states she is "not really" frustrated like previous days but would not elaborate as to why. Pt stated family visit went "good". Pt unable to urinate or defecate on her own although she attempted during toileting. Pt leonor-area and anal area cleaned thoroughly then both barrier cream and hemorrhoid cream applied along with a new depend. Pt pubic hair shaved slightly so as to enable better cleaning of feces, as pt continues to have loose bowel smears. All bedding changed with new absorbent pad. RN conferred with ASHA Davis and it was agreed that [place] would be held this evening, with the new order to be officially initiated on 03/04 since pt had received 150mg in the morning and the PA is wishing to decrease daily total to 150mg from 300mg. S/I, H/I: Denies Both A/VH: Denies Both Sleep: See Sleep Assessment ADL's: Needs prompting and assistance Group attendance: N/A Were meds taken: Yes Any med S/E: None reported nor observed Mental Status Exam Appearance: Slightly disheveled with oily hair. Pt is wearing gown, scrub top and personal undershirt, nonskid socks, and depends. Pt is thin and emaciated, as a result from not eating well. Eye contact: Intermittent Behavior: Cooperative, Friendly, Isolated to room except to visit with brother and sister Speech: Slow, Soft, Hypoverbal Mood: Depressed 8/10, Anxiety 810 Affect: Flat with occasional brightening Thought process: Linear and logical Thought Content: Going home, Wanting to be able to urinate and pass feces Cognition: A/Ox4 Insight: Poor Judgment: Poor to Fair Interventions PRN's used: None Therapeutic interventions: Maintained a safe and therapeutic environment, ensured contract for safety, monitored I&Os, performed bladder scan and encouraged fluids and straight cathed Q6 per orders if needed, encouraged independent performance of ADLs and maintained fall precautions, monitored behaviors and need for intervention, provided clear and simple directions, and maintained Q 15 min safety checks. Restraints/seclusion/emergency medication: N/A Justification of Continued Inpatient Treatment: Per MD and PA notes, pt is exhibiting neuro-vegetative symptoms of depression and continues to need assistance with ADLs. Need to remedy constipation and urinary retention issues; providers are considering discharging pt home with a Louie catheter; there she can be managed by Home Health and F/U in outpatient settings.
--- NOTE | 2019-03-04 03:22 | NUR ---
Bladder Scan/Care & I/Os: 2044: Bladder scan revealed pt retaining 644ml. Pt states she feels the urge to void. Pt toileted to no avail. Able to straight cath 550ml of clear, light bossman urine. Residual of 94ml. Pt cleaned, barrier and hemorrhoid cream applied, new depend. 013: Pt bladder scan revealed 142ml of urine. Pt toileted, unable to void. Depend changed due to large fecal smear. Pt cleaned, barrier cream applied. I&Os: Pt drank 118ml juice, ate 1 yogurt, and had 4 saltines this shift. Pt output 550ml urine via catheter. Pt had smears of bowel in depends x2 but no full movements this evening.
[2019-03-04 07:30] VITALS: BP 102/66
--- NOTE | 2019-03-04 07:32 | NUR ---
Bladder Scan for 955 @ 2353
[2019-03-04] MEDS: pregabalin 75mg capsule PO SCH (07:54)
[2019-03-04] MEDS: apixaban 5mg tablet PO SCH (07:54)
[2019-03-04] MEDS: pregabalin 25mg capsule PO SCH (07:54)
[2019-03-04] MEDS: megestrol acetate 400mg/10ml UD oral suspension PO SCH (07:55)
[2019-03-04] MEDS: pantoprazole 40mg Tablet.DR PO SCH (07:55)
[2019-03-04] MEDS ORDERED: clonazePAM 0.5mg tablet PO SCH (08:00)
[2019-03-04] MEDS: lactose-reduced food (Ensure Enlive) - 237ml bottle PO SCH ×2 (08:00→13:18)
[2019-03-04] MEDS ORDERED: sertraline 50mg tablet PO SCH (08:00)
[2019-03-04] MEDS ORDERED: magnesium hydroxide 30ml (MOM) UD suspension PO SCH (11:15)
[2019-03-04] MEDS ORDERED: cephalexin 250mg capsule PO SCH (11:34)
--- NOTE | 2019-03-04 12:34 | NUR ---
Bladder scan for 577, straight cath for 600 mL light bossman, with minimal cloudiness
[2019-03-04 13:51] LABS: BASOPHILS # (AUTO) 0.1 X10'3 (0-0.2); BASOPHILS % (AUTO) 1.2 % (0-1); EOSINOPHILS # (AUTO) 0.1 X10'3 (0-0.9); EOSINOPHILS % (AUTO) 1.5 % (0-6); HEMATOCRIT 30.6 % (35.0-45.0); HEMOGLOBIN 10.3 g/dl (12.0-16.0); LYMPHOCYTES # (AUTO) 0.9 X10'3 (1.1-4.8); LYMPHOCYTES % (AUTO) 16.2 % (21-51); MEAN CORPUSCULAR HEMOGLOBIN 35.2 PG (27.0-31.0); MEAN CORPUSCULAR HGB CONC 33.8 g/dL (33.0-36.5); MEAN CORPUSCULAR VOLUME 104.3 FL (78-98); MONOCYTES # (AUTO) 0.4 X10'3 (0-0.9); MONOCYTES % (AUTO) 8.2 % (2-12); NEUTROPHILS % (AUTO) 72.9 % (42-75); PLATELET COUNT 242 X10'3 (140-440); RED BLOOD COUNT 2.93 X10'6 (4.20-5.60); RED CELL DISTRIBUTION WIDTH 18.1 % (11.5-14.5); WHITE BLOOD COUNT 5.4 X10'3 (4.5-11.0)
[2019-03-04 14:09] LABS: ALANINE AMINOTRANSFERASE 28 U/L (12-78); ALBUMIN/GLOBULIN RATIO 0.8 (1.1-1.5); ALKALINE PHOSPHATASE 70 IU/L (46-116); ANION GAP 9 (8-16); ASPARTATE AMINO TRANSFERASE 12 U/L (10-37); BILIRUBIN,TOTAL 0.4 MG/DL (0.1-1.0); BLOOD UREA NITROGEN 23 MG/DL (7-18); BUN/CREATININE RATIO 38.3 (6.6-38.0); CALCIUM 8.9 MG/DL (8.5-10.1); CHLORIDE 108 MMOL/L (99-107); GLUCOSE 103 MG/DL (70-104); POTASSIUM 3.6 MMOL/L (3.5-5.1); SODIUM 144 MMOL/L (135-145); TOTAL CARBON DIOXIDE 26.9 MMOL/L (24-32); TOTAL PROTEIN 6.6 G/DL (6.4-8.2); eGFR > 90 ML/MIN
[2019-03-04] MEDS ORDERED: [UNRECOGNIZED DRUG - CODE] RC (14:45)
[2019-03-04] MEDS ORDERED: CEPH250C PO (14:45)
[2019-03-04] MEDS ORDERED: PANT40TA4 PO (14:45)
[2019-03-04] MEDS ORDERED: SERT50TA10 PO (14:45)
[2019-03-04] MEDS ORDERED: LYR25C PO (14:45)
[2019-03-04] MEDS ORDERED: CLON0.5T4 PO (14:45)
[2019-03-04] MEDS ORDERED: DOCU250C96 PO (14:45)
[2019-03-04] MEDS ORDERED: MAGN296S50 PO (14:45)
[2019-03-04] MEDS ORDERED: APIX5TAB3 PO (14:45)
[2019-03-04] MEDS ORDERED: LITH150C8 PO (14:45)
[2019-03-04] MEDS ORDERED: LYR75C PO (14:45)
[2019-03-04] MEDS ORDERED: AMER30O RC (14:45)
[2019-03-04] MEDS ORDERED: MIRT15TA8 PO (14:45)
--- NOTE | 2019-03-04 15:35 | NUR ---
DISCHARGE PLANNING Called and faxed Home Health Referrals to the following agencies: [facility]-denied due to insurance [facility]-denied due to insurance [facility]-denied due to location Waiting to hear back from the following agencies: [facility]- IFEANYI Ortega Addendum: 03/04/19 at 1611 by Bertha Vel[facility] have accepted Ct and will meet with her on Thu03/09/19. This is the earliest they can meet with her. IFEANYI Ortega
--- NOTE | 2019-03-04 16:06 | NUR ---
Louie Catheter placed with leg bag, 250 mL urine output prior to attaching leg bag. urine light bossman color, cloudy. Patient tolerated well. Provided eduction on cath care, fleets enema and explained that if she did not have a BM in 48 hours she needed to return to the ED or her primary provider.
--- NOTE | 2019-03-04 16:08 | NUR ---
Nursing Progress Note: Blanca Legal hold: Voluntary Client on voluntary/involuntary status for DTS Report received from nurse with use of VIELKA Song. Why are they here: She was actively choosing not to eat in order to . Assessment What has happened this shift: Patient awake in her room at shift change. When asked about recent BM, she states a little bit with blood. Hat which is placed in her toilet has a very small pebble of stool, and small amount of bright red blood. Reported to hospitalist. BS active in all quadrants, still distended, KUB ordered by provider. Patient no longer qualifys for Psychiatric inpatient services, but is unable to discharge due to inability to move her bowels and continued urinary retention. At 0745 bladder scan revealed 375 mL. Patient ambulated to community room for breakfast without needing encouragement. She also agreed to attend group. Urine culture positive for infection, started on abx therapy. Evaluated by Dr. Jon, evaluated patient for possible transfer to medical floor, determined patient medical issues can be addressed at home. Straight cath at noon for 600mL. FC placed for discharge home S/I, H/I: Denies A/VH: denies Sleep: 7.25 states well rested ADL's: needs encouragement Group attendance: Yes Were meds taken: Yes with applesauce Any med S/E: none observed (ongoing constipation and urinary retention) Mental Status Exam Appearance: Neatly dressed, hair combed but very greesy appearing, no foul odors. Dressed in clean scrubs Eye contact: Direct Behavior: withdrawn private Speech: soft, clear, normal rate Mood: calm, cooperative Affect: congruent with mood Thought process: Linear Thought Content: bowel and bladder Cognition: A & O X 4 Insight:Fair Judgment: fair Interventions PRN's used: Therapeutic interventions:Provide calm, supportive environment, 1:1 therapuetic interactions/assessment, contracted for safety, ongoing Q 15 minute monitoring. Encouraging fluids and PO intake Restraints/seclusion/emergency medication: N/A Justification of Continued Inpatient Treatment: Patient is no longer suicidal. Per insurance no longer meets criteria for inpatient psychiatric care. Continues with medical issues related to constipation and urinary retention.
--- NOTE | 2019-03-04 16:49 | NUR ---
Patient discharged home in the care of parents. Discharge instructions provided to patient and parents and included, medication education, f/c care and follow up, and bowel training and when to call PCP related to constipation. Belongings where inventoried with patient and given to patient as she left the unit. Follow up appointment with PCP set for 03/09 @ 2pm. Patient shows no signs ongoing depression and denies SI.
--- NOTE | 2019-03-04 16:56 | NUR ---
Reassessment: Patient with a significant increase in PO intake documented with 100% PO intake 03/03-present. Pt also with 100% PO intake of Ensure Enlive meeting nutrient needs. Pt still documented as constipated with a smear 03/03-03/04. Pt s/p abdominal x-ray which shows extensive stool seen throughout the colon with some distention of the colon and no evidence of any small bowel distention seen to suggest obstruction per report. Pt continues receiving multiple routine and PRN bowel care medications. Will continue to follow closely. Rec: 1. Continue regular diet 2. Ensure Enlive TID 3. Encourage PO Intake 4. routine bowel care; Monitor need for additional 5. weight per rx Addendum: 03/04/19 at [address] Amended: Links added.
== END 2019-03-04 16:47 | disposition home or self-care (01) | DRG 885 ==
LOC: ADULT MH 13:51
PROVIDERS: ADMIT Psychiatry & Neurology Psychiatry; ATTEND Psychiatry & Neurology Psychiatry
DX: F33.2 Major depressive disorder, recurrent severe without psychotic features (principal); I26.99 Other pulmonary embolism without acute cor pulmonale; N39.0 Urinary tract infection, site not specified; R45.851 Suicidal ideations; R64 Cachexia; Z68.1 Body mass index [BMI] 19.9 or less, adult; K59.00 Constipation, unspecified; R63.0 Anorexia; F41.9 Anxiety disorder, unspecified; G89.29 Other chronic pain; I10 Essential (primary) hypertension; K21.9 Gastro-esophageal reflux disease without esophagitis; K64.9 Unspecified hemorrhoids; M79.7 Fibromyalgia; Z79.01 Long term (current) use of anticoagulants; Z86.711 Personal history of pulmonary embolism; Z23 Encounter for immunization; Z82.49 Family history of ischemic heart disease and other diseases of the circulatory system
CPT/HCPCS: 36415; 74018; 80053; 80061; 80178; 81001; 85025; 87077; 87081; 87088; 87186; 97110; 97116; 97161; 97530; 99285; Q2037; Z7610